=== PATIENT | female | born 1995 | race Caucasian/White ===

== ENCOUNTER 2019-02-11 13:26 | Outpatient (RCR) | payer OTHER | END 2019-02-11 15:00 | disposition home or self-care (01) | PROVIDERS: ATTEND Surgery | DX: Z02.71 Encounter for disability determination (principal) ==

== ENCOUNTER 2020-05-13 20:55 | Emergency (ER) | payer SELFPAY ==
[~2020-05-13] VITALS: Ht 162.5 cm; Wt 139.9 kg
[2020-05-13 20:57] VITALS: BP 113/72
--- OUTSIDE RECORDS SUMMARY | 2020-05-13 21:00 | XMS REPORT | Clinical Summary ---
Author Author Admin, Isadora Graham Organization [facility] Address Unknown Phone Unavailable Allergies, Adverse Reactions, Alerts Allergy Name Reaction Description Start Date Severity Status Pr ovider ANTHIHISTAMINE Reverse affect Moderate Active Amandeep Castillo DO Conditions or Problems Problem Name Problem Code Onset Date Status Entry Date Provider Comment Standard Description Annotate APHTHOUS ULCERS 528.2 Resolved Tito Medrano Oral aphthae ACUTE PHARYNGITIS 462 Resolved Tito Burkett MD Acute pharyngitis BMI 40-44.9 adult V85.41 Active Tito Burkett MD Body Mass Index 40.0-44.9, adult Allergic rhinitis 477.9 Active Tito Burkett MD Allergic rhinitis, cause unspecified APHTHOUS ULCERS ICD-528.2 Inactive Tito Boudreaux MD ACUTE PHARYNGITIS ICD-462 Inactive Tito moore MD Medication List Medication Instructions Start Date Stop Date Generic Name NDC Status Provider Patient Instruction CEFDINIR 300 MG CAPS by mouth twice a day CEFDI LANEY 38199371454 Active Amandeep Castillo DO Active FLUTICASONE PROPIONATE 50 MCG/ACT SUSP 1 to 2 sprays e ach nostril daily for allergies FLUTICASONE PROPIONATE 21743518946 Active Magan Burkett MD Active PREDNISONE 20 MG TABS 2 daily for 3 days then 1 daily for 3 days 20 25/02/05 PREDNISONE 00435566819 Active Tito Burkett MD Active TRIAMCINOLONE ACETONIDE 0.1 % CREA apply q 8 hours sparingly to itchy area's TRIAMCINOLONE ACETONIDE 21981228205 No Longer Active Tito Burkett MD Active TRIAMCINOLONE ACETONIDE 0.1 % CREA apply q 8 hours sparingly to itchy area's TRIAMCINOLONE ACETONIDE 0.1 % CREA 5242012 TRIAMCINOLONE ACETONIDE Inactive Vital Signs Date Name Value Unit Range Description blood pressure, diastolic - 8462-4 83 mm[Hg] BP kinsey blood pressure, systolic - 8480-6 134 mm[Hg] BP sys height E&M - 8302-2 65 [in_us] Bdy h eight pulse rate E&M - 8867-4 90 /min H eart rate temperature E&M 98.0 [degF] Body temp erature weight E&M - 3141-9 260.6 [lb_av] Weigh t Measured Encounters Code Encounter Date Provider Facility CPT-20079 Level 2 New Patient 16:16:35 CDT Tito moore MD [facility] CPT-56758 Level 3 Est. 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 Patient 19:59:16 CDT Amandeep hill [facility]
--- OUTSIDE RECORDS SUMMARY | 2020-05-13 21:00 | XMS REPORT | Clinical Summary ---
Author Author Admin, Isadora Graham Organization [facility] Address Unknown Phone Unavailable Allergies, Adverse Reactions, [...] Tito Burkett MD Allergic rhinitis, cause unspecified Upper respiratory infection 465.9 Active Daniel Nguyễn MD Acute upper respiratory infections of un specified site ASCUS with positive high risk HPV 795.15 Active 20 27/08/24 Maila Bright MD Vaginal high risk human papillomavirus ( HPV) DNA test positive Std screening V74.5 Active Malia Bright MD Screening examination for venereal disease APHTHOUS ULCERS ICD-528.2 Inactive Tito Boudreaux MD ACUTE PHARYNGITIS ICD-462 Inactive Tito moore MD Medication List Medication Instructions Start Date Stop Date Generic Name NDC Status Provider Patient Instruction FLUTICASONE PROPIONATE 50 MCG/ACT SUSP 1 to 2 sprays e ach nostril daily for allergies FLUTICASONE PROPIONATE 08134970529 No nger Active Malia Bright MD Active PREDNISONE 20 MG TABS 2 daily for 3 days then 1 daily for 3 days PREDNISONE 99088994132 No Longer Active Amandeep Castillo DO Act ce PREDNISONE 20 MG TAB 2 tabs daily for 3 days, 1 t ab daily for 3 days, 1/2 tab daily for 2 days PREDNISONE 45681714905 No Longer Active Daniel Nguyễn MD Active CEFDINIR 300 MG CAPS by mouth twice a day CEFDI LANEY 17876803456 No Longer Active Amandeep Castillo DO Active TRIAMCINOLONE ACETONIDE 0.1 % CREA apply q 8 hours sparingly to itchy area's TRIAMCINOLONE ACETONIDE 04247741090 No Longer Active Tito Burkett MD Active TRIAMCINOLONE ACETONIDE 0.1 % CREA apply q 8 hours sparingly to itchy area's TRIAMCINOLONE ACETONIDE 0.1 % CREA 8536003 TRIAMCINOLONE ACETONIDE Inactive PREDNISONE 20 MG TABS 2 daily for 3 days then 1 daily for 3 days PREDNISONE 20 MG TABS 453675 PREDNISONE Inactive FLUTICASONE PROPIONATE 50 MCG/ACT SUSP 1 to 2 sprays e ach nostril daily for allergies FLUTICASONE PROPIONATE 50 MCG/ACT SUSP 17 78590 FLUTICASONE PROPIONATE Inactive CEFDINIR 300 MG CAPS by mouth twice a day CEFDINIR 300 MG CAPS 248734 CEFDINIR Inactive PREDNISONE 20 MG TAB 2 tabs daily for 3 days, 1 t ab daily for 3 days, 1/2 tab daily for 2 days PREDNISONE 20 MG TAB 758207 PREDNISON E Inactive Vital Signs Date Name Value Unit Range Description blood pressure, diastolic - 8462-4 77 mm[Hg] BP kinsey blood pressure, systolic - 8480-6 121 mm[Hg] BP sys pulse rate E&M - 8867-4 64 /min H eart rate temperature E&M 99.1 [degF] Body temp erature weight E&M - 3141-9 264.4 [lb_av] Weigh t Measured blood pressure, diastolic - 8462-4 76 mm[Hg] BP kinsey blood pressure, systolic - 8480-6 132 mm[Hg] BP sys pulse rate E&M - 8867-4 61 /min H eart rate temperature E&M 98.8 [degF] Body temp erature weight E&M - 3141-9 270 [lb_av] Weigh t Measured blood pressure, diastolic - 8462-4 85 mm[Hg] BP kinsey blood pressure, systolic - 8480-6 132 mm[Hg] BP sys pulse rate E&M - 8867-4 105 /min H eart rate temperature E&M 98.7 [degF] Body temp erature weight E&M - 3141-9 270 [lb_av] Weigh t Measured blood pressure, diastolic - 8462-4 83 mm[Hg] BP kinsey blood pressure, systolic - 8480-6 134 mm[Hg] BP sys height E&M - 8302-2 65 [in_us] Bdy h eight pulse rate E&M - 8867-4 90 /min H eart rate temperature E&M 98.0 [degF] Body temp erature weight E&M - 3141-9 260.6 [lb_av] Weigh t Measured Diagnostic Results Date Name Value Unit Range Description Lab Report: HEPATITIS B S AG W/, Chlamyd ia/GC APTIMA/84570, HIV-1/2 Agn/ ... - Chemistry hepatitis B surface antigen NON-REACTIVE NON-RE ACTIVE Lab Report: HEPATITIS B S AG W/, Chlamyd ia/GC APTIMA/99360, HIV-1/2 Agn/ ... - Lab chlamydia DNA probe NOT DETECTED NOT DETECTED Lab Report: HEPATITIS B S AG W/, Chlamyd ia/GC APTIMA/25330, HIV-1/2 Agn/ ... - Microbiology Neisseria gonorrhoeae DNA probe NOT DETECTED NO T DETECTED Lab Report: HEPATITIS B S AG W/, Chlamyd ia/GC APTIMA/91695, HIV-1/2 Agn/ ... - Serology rapid plasma reagin antibody titer NON-REACTIVE NON-REACTIVE Office Procedure: Consult Colposcopy - C hemistry human chorionic gonadotropin , urine, qualitative (urine test) neg Encounters Code Encounter Date Provider Facility CPT-80351 Level 3 Est. Patient 16:51:44 CDT Amandeep hill [facility] CPT-52656 Level 3 Est. Patient 15:10:02 CDT Daniel Nguyễn MD [facility] CPT-52025 Level 2 New Patient 16:16:35 CDT Tito moore MD [facility] CPT-07513 Level 3 Est. 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 Patient 19:59:16 CDT Amandeep hill [facility] Procedures Code Procedure Name Date Entry Date Standard Desc ription CPT-25377 Wet Prep/CEM - LAB USE ONLY 11:16:10 CDT 20 27/08/24 CPT-53475 [place] of cervix w bx ECC 10:13:06 CDT CPT-OV Office Visit 10:13:06 CDT
--- OUTSIDE RECORDS SUMMARY | 2020-05-13 21:00 | XMS REPORT | Clinical Summary ---
Author Author Admin, Isadora Graham Organization [facility] Address Unknown Phone Unavailable Allergies, Adverse [...] high risk HPV 795.15 Active 20 27/08/24 Malia Bright MD Vaginal high risk human papillomavirus [...] ach nostril daily for allergies FLUTICASONE PROPIONATE 75270853818 No nger Active Malia Bright MD Active PREDNISONE 20 MG TABS 2 daily for 3 days then 1 daily for 3 days PREDNISONE 44621145582 No Longer Active Amandeep Castillo DO Act ce PREDNISONE 20 MG TAB 2 tabs daily for 3 days, 1 t ab daily for 3 days, 1/2 tab daily for 2 days PREDNISONE 42516499564 No Longer Active Daniel Nguyễn MD Active CEFDINIR 300 MG CAPS by mouth twice a day CEFDI LANEY 02181455447 No Longer Active Amandeep Castillo DO Active TRIAMCINOLONE ACETONIDE 0.1 % CREA apply q 8 hours sparingly to itchy area's TRIAMCINOLONE ACETONIDE 19780090896 No Longer Active Tito Burkett MD Active TRIAMCINOLONE ACETONIDE 0.1 % CREA apply q 8 hours sparingly to itchy area's TRIAMCINOLONE ACETONIDE 0.1 % CREA 7575856 TRIAMCINOLONE ACETONIDE Inactive PREDNISONE 20 MG TABS 2 daily for 3 days then 1 daily for 3 days PREDNISONE 20 MG TABS 468015 PREDNISONE Inactive FLUTICASONE PROPIONATE 50 MCG/ACT SUSP 1 to 2 sprays e ach nostril daily for allergies FLUTICASONE PROPIONATE 50 MCG/ACT SUSP 17 38849 FLUTICASONE PROPIONATE Inactive CEFDINIR 300 MG CAPS by mouth twice a day CEFDINIR 300 MG CAPS 689152 CEFDINIR Inactive PREDNISONE 20 MG TAB 2 tabs daily for 3 days, 1 t ab daily for 3 days, 1/2 tab daily for 2 days PREDNISONE 20 MG TAB 048508 PREDNISON E Inactive Vital Signs Date Name Value Unit Range Description blood pressure, diastolic - 8462-4 76 mm[Hg] [...] HEPATITIS B S AG W/, Chlamyd ia/GC APTIMA/07408, HIV-1/2 Agn/ ... - Chemistry hepatitis B surface antigen NON-REACTIVE NON-RE ACTIVE Lab Report: HEPATITIS B S AG W/, Chlamyd ia/GC APTIMA/24057, HIV-1/2 Agn/ ... - Lab chlamydia DNA probe NOT DETECTED NOT DETECTED Lab Report: HEPATITIS B S AG W/, Chlamyd ia/GC APTIMA/54210, HIV-1/2 Agn/ ... - Microbiology Neisseria gonorrhoeae DNA probe NOT DETECTED NO T DETECTED Lab Report: HEPATITIS B S AG W/, Chlamyd ia/GC APTIMA/73148, HIV-1/2 Agn/ ... - Serology rapid plasma reagin antibody titer NON-REACTIVE NON-REACTIVE Encounters Code Encounter Date Provider Facility CPT-11795 Level 3 Est. Patient 16:51:44 CDT Amandeep hill [facility] CPT-25883 Level 3 Est. Patient 15:10:02 CDT Daniel Nguyễn MD [facility] CPT-08819 Level 2 New Patient 16:16:35 CDT Tito moore MD [facility] CPT-03997 Level 3 Est. 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 Patient 19:59:16 CDT Amandeep hill [facility] Procedures Code Procedure Name Date Entry Date Standard Desc ription CPT-66304 Wet Prep/CEM - LAB USE ONLY 11:16:10 CDT 20 27/08/24 CPT-51009 [place] of cervix w bx ECC 10:13:06 CDT CPT-OV Office Visit 10:13:06 CDT
--- OUTSIDE RECORDS SUMMARY | 2020-05-13 21:00 | XMS REPORT | Clinical Summary ---
Author Author Admin, Isadora Graham Organization [facility] Address Unknown Phone Unavailable Allergies, Adverse [...] Bright MD Screening examination for venereal disease Sinusitis 473.9 Active Tito Burkett MD Unspecified sinusitis (chronic) Pharyngitis 462 Active Tito Burkett MD Acute pharyngitis Plantar fasciitis, left 728.71 Active Ilir Burkett MD Plantar fascial fibromatosis Irregular menses 626.4 Active Malia Bright MD Irregular menstrual cycle Sleep disorder 780.50 Active Malia Bright MD Unspecified sleep disturbance Obesity 278.00 Active Malia Bright MD O besity, unspecified APHTHOUS ULCERS ICD-528.2 Inactive Tito Boudreaux MD ACUTE PHARYNGITIS ICD-462 Inactive Tito moore MD Medication List Medication Instructions Start Date Stop Date Generic Name NDC Status Provider Patient Instruction IBUPROFEN 600 MG TABS 1 three times a day as needed for pain 201 05/18/24 IBUPROFEN 13322017610 No Longer Active Malia Bright MD A ctive AMOXICILLIN 500 MG TABS 2 tabs twice a day for 10 days AMOXICILLIN 76229708834 No Longer Active Tito Burkett MD Activ e PREDNISONE 20 MG TABS 2 daily for 3 days then 1 daily for 3 days PREDNISONE 42540557234 No Longer Active Tito Burkett MD Active FLUTICASONE PROPIONATE 50 MCG/ACT SUSP 1 to 2 sprays e ach nostril daily for allergies FLUTICASONE PROPIONATE 47705852758 Active R kennedy Burkett MD Active FLUTICASONE PROPIONATE 50 MCG/ACT SUSP 1 to 2 sprays e ach nostril daily for allergies FLUTICASONE PROPIONATE 74844175232 No Lo nger Active Malia Bright MD Active PREDNISONE 20 MG TABS 2 daily for 3 days then 1 daily for 3 days PREDNISONE 97738359251 No Longer Active Amandeep Castillo DO Act ce PREDNISONE 20 MG TAB 2 tabs daily for 3 days, 1 t ab daily for 3 days, 1/2 tab daily for 2 days PREDNISONE 45028528908 No Longer Active Daniel Nguyễn MD Active CEFDINIR 300 MG CAPS by mouth twice a day CEFDI LANEY 85561282277 No Longer Active Amandeep Castillo DO Active TRIAMCINOLONE ACETONIDE 0.1 % CREA apply q 8 hours sparingly to itchy area's TRIAMCINOLONE ACETONIDE 18899784672 No Longer Active Tito Burkett MD Active TRIAMCINOLONE ACETONIDE 0.1 % CREA apply q 8 hours sparingly to itchy area's TRIAMCINOLONE ACETONIDE 0.1 % CREA 2009525 TRIAMCINOLONE ACETONIDE Inactive PREDNISONE 20 MG TABS 2 daily for 3 days then 1 daily for 3 days PREDNISONE 20 MG TABS 286203 PREDNISONE Inactive FLUTICASONE PROPIONATE 50 MCG/ACT SUSP 1 to 2 sprays e ach nostril daily for allergies FLUTICASONE PROPIONATE 50 MCG/ACT SUSP 17 16495 FLUTICASONE PROPIONATE Inactive PREDNISONE 20 MG TABS 2 daily for 3 days then 1 daily for 3 days PREDNISONE 20 MG TABS 611340 PREDNISONE Inactive AMOXICILLIN 500 MG TABS 2 tabs twice a day for 10 days AMOXICILLIN 500 MG TABS 130798 AMOXICILLIN Inactive IBUPROFEN 600 MG TABS 1 three times a day as needed for pain 201 05/18/24 IBUPROFEN 600 MG TABS 665455 IBUPROFEN Inactive CEFDINIR 300 MG CAPS by mouth twice a day CEFDINIR 300 MG CAPS 402577 CEFDINIR Inactive PREDNISONE 20 MG TAB 2 tabs daily for 3 days, 1 t ab daily for 3 days, 1/2 tab daily for 2 days PREDNISONE 20 MG TAB 998170 PREDNISON E Inactive Vital Signs Date Name Value Unit Range Description blood pressure, diastolic 79 mm[Hg] BP kinsey blood pressure, systolic 126 mm[Hg] BP sys height E&M 65 [in_us] Bdy height pulse rate E&M 63 /min Heart rate temperature E&M 97.4 [degF] Body temp erature weight E&M 273 [lb_av] Weight Measure d blood pressure, diastolic 66 mm[Hg] BP kinsey blood pressure, systolic 136 mm[Hg] BP sys height E&M 65 [in_us] Bdy height pulse rate E&M 93 /min Heart rate temperature E&M 98.3 [degF] Body temp erature weight E&M 269.5 [lb_av] Weight Measure d blood pressure, diastolic 79 mm[Hg] BP kinsey blood pressure, systolic 127 mm[Hg] BP sys pulse rate E&M 88 /min Heart rate temperature E&M 98.9 [degF] Body temp erature weight E&M 259.5 [lb_av] Weight Measure d blood pressure, diastolic 77 mm[Hg] BP kinsey blood pressure, systolic 121 mm[Hg] BP sys pulse rate E&M 64 /min Heart rate temperature E&M 99.1 [degF] Body temp erature weight E&M 264.4 [lb_av] Weight Measure d Diagnostic Results Date Name Value Unit Range Description Lab Report: CBC, Comp. Metabolic Panel, Thyroid Stimulating Hormone (L) - Chemistry sodium, serum 138 mmol/L 205-894 8220/09/06 carbon dioxide, venous blood 21.9 mmol/L 21.0-32 .0 potassium, serum 4.2 mmol/L 3.5-5.2 chloride, serum 103 mmol/L 98-107 blood glucose 93 mg/dL 65-110 urea nitrogen, blood 13 mg/dL 7-18 creatinine, serum 0.73 mg/dL 0.60-1.30 alanine aminotransferase (SGPT), serum 17 U/L 12-78 aspartate aminotransferase (SGOT), serum 11 U/L 15-37 calcium, serum 8.6 mg/dL 8.5-10.1 bilirubin, serum, total 0.30 mg/dL 0.00-1.00 TSH 1.70 m[iU]/mL 0.36-3.74 Lab Report: CBC, Comp. Metabolic Panel, Thyroid Stimulating Hormone (L) - Hematology leukocyte count, blood 6.1 10^3/MM^3 10*3/mm3 4.6-10.2 erythrocyte (RBC) count 4.77 10^6/MM^3 10*6/mm3 3.80-5.8 0 hemoglobin, blood 14.2 g/dL 12.0-16.0 hematocrit, blood 42.9 % 37.0-47.0 mean corpuscular volume, RBC 90 fL 80-97 mean corpuscular hemoglobin, RBC 29.8 pg 27. 0-31.2 mean corpuscular hemoglobin concentration, RBC 33.2 G/DL % 31.8-35.4 red blood cell distribution width 13.9 % 13 .0-18.0 platelet count 348 10^3/MM^3 10*3/mm3 142-424 Lab Report: Chlamydia/GC APTIMA/87440 - Lab chlamydia DNA probe NOT DETECTED NOT DETECTED Lab Report: Chlamydia/GC APTIMA/26859 - Microbiology Neisseria gonorrhoeae DNA probe NOT DETECTED NO T DETECTED Lab Report: HEPATITIS B S AG W/, Chlamyd ia/GC APTIMA/24985, HIV-1/2 Agn/ ... - Chemistry hepatitis B surface antigen NON-REACTIVE NON-RE ACTIVE rapid plasma reagin antibody titer NON-REACTIVE NON-REACTIVE Lab Report: HEPATITIS B S AG W/, Chlamyd ia/GC APTIMA/63760, HIV-1/2 Agn/ ... - Lab chlamydia DNA probe NOT DETECTED NOT DETECTED Lab Report: HEPATITIS B S AG W/, Chlamyd ia/GC APTIMA/32234, HIV-1/2 Agn/ ... - Microbiology Neisseria gonorrhoeae DNA probe NOT DETECTED NO T DETECTED Office Procedure: Consult Colposcopy - C hemistry human chorionic gonadotropin , urine, qualitative (urine test) neg Office Visit: Irregular bleeding - Chemi stry human chorionic gonadotropin , urine, qualitative (urine test) Negative Encounters Code Encounter Date Provider Facility CPT-72814 Level 4 Est. Patient 09:59:10 CDT Malia mckeon MD [facility] CPT-31998 Level 3 Est. Patient 15:42:35 CDT Tito Burkett MD [facility] CPT-68147 Level 3 Est. 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 Patient 16:51:44 CDT Amandeep hill [facility] CPT-91223 Level 3 Est. Patient 15:10:02 CDT Daniel Nguyễn MD [facility] CPT-57010 Level 2 New Patient 16:16:35 CDT Tito moore MD [facility] CPT-14484 Level 3 Est. 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 Patient 19:59:16 CDT Amandeep hill [facility] Procedures Code Procedure Name Date Entry Date Standard Desc ription CPT[facility]15313 [facility] - CARLY ONLY 10:08:25 CDT 07/10 CPT-33727 Wet Prep/CEM - LAB USE ONLY 11:16:10 CDT 20 27/08/24 CPT-73073 [place] of cervix w bx ECC 10:13:06 CDT CPT-OV Office Visit 10:13:06 CDT
--- OUTSIDE RECORDS SUMMARY | 2020-05-13 21:00 | XMS REPORT | Clinical Summary ---
Author Author Admin, Isadora Graham Organization [facility] Address Unknown Phone Unavailable Allergies, Adverse [...] as needed for pain 201 05/18/24 IBUPROFEN 35547506513 No Longer Active Malia Bright MD A ctive AMOXICILLIN 500 MG TABS 2 tabs twice a day for 10 days AMOXICILLIN 16068383544 No Longer Active Tito Burkett MD Activ e PREDNISONE 20 MG TABS 2 daily for 3 days then 1 daily for 3 days PREDNISONE 16594516172 No Longer Active Tito Burkett MD Active FLUTICASONE PROPIONATE 50 MCG/ACT SUSP 1 to 2 sprays e ach nostril daily for allergies FLUTICASONE PROPIONATE 61358851231 Active R kennedy Burkett MD Active FLUTICASONE PROPIONATE 50 MCG/ACT SUSP 1 to 2 sprays e ach nostril daily for allergies FLUTICASONE PROPIONATE 99767471637 No Lo nger Active Malia Bright MD Active PREDNISONE 20 MG TABS 2 daily for 3 days then 1 daily for 3 days PREDNISONE 38057202015 No Longer Active Amandeep Castillo DO Act ce PREDNISONE 20 MG TAB 2 tabs daily for 3 days, 1 t ab daily for 3 days, 1/2 tab daily for 2 days PREDNISONE 91772703512 No Longer Active Daniel Nguyễn MD Active CEFDINIR 300 MG CAPS by mouth twice a day CEFDI LANEY 70167649354 No Longer Active Amandeep Castillo DO Active TRIAMCINOLONE ACETONIDE 0.1 % CREA apply q 8 hours sparingly to itchy area's TRIAMCINOLONE ACETONIDE 43336391112 No Longer Active Tito Burkett MD Active TRIAMCINOLONE ACETONIDE 0.1 % CREA apply q 8 hours sparingly to itchy area's TRIAMCINOLONE ACETONIDE 0.1 % CREA 8943117 TRIAMCINOLONE ACETONIDE Inactive PREDNISONE 20 MG TABS 2 daily for 3 days then 1 daily for 3 days PREDNISONE 20 MG TABS 764033 PREDNISONE Inactive FLUTICASONE PROPIONATE 50 MCG/ACT SUSP 1 to 2 sprays e ach nostril daily for allergies FLUTICASONE PROPIONATE 50 MCG/ACT SUSP 17 02167 FLUTICASONE PROPIONATE Inactive PREDNISONE 20 MG TABS 2 daily for 3 days then 1 daily for 3 days PREDNISONE 20 MG TABS 848433 PREDNISONE Inactive AMOXICILLIN 500 MG TABS 2 tabs twice a day for 10 days AMOXICILLIN 500 MG TABS 840379 AMOXICILLIN Inactive IBUPROFEN 600 MG TABS 1 three times a day as needed for pain 201 05/18/24 IBUPROFEN 600 MG TABS 753168 IBUPROFEN Inactive CEFDINIR 300 MG CAPS by mouth twice a day CEFDINIR 300 MG CAPS 422877 CEFDINIR Inactive PREDNISONE 20 MG TAB 2 tabs daily for 3 days, 1 t ab daily for 3 days, 1/2 tab daily for 2 days PREDNISONE 20 MG TAB 414460 PREDNISON E Inactive Vital Signs Date Name [...] Name Value Unit Range Description Lab Report: Chlamydia/GC APTIMA/22898 - Lab chlamydia DNA probe NOT DETECTED NOT DETECTED Lab Report: Chlamydia/GC APTIMA/27149 - Microbiology Neisseria gonorrhoeae DNA probe NOT DETECTED NO T DETECTED Lab Report: HEPATITIS B S AG W/, Chlamyd ia/GC APTIMA/98402, HIV-1/2 Agn/ ... - Chemistry hepatitis B surface antigen NON-REACTIVE NON-RE ACTIVE rapid plasma reagin antibody titer NON-REACTIVE NON-REACTIVE Lab Report: HEPATITIS B S AG W/, Chlamyd ia/GC APTIMA/25831, HIV-1/2 Agn/ ... - Lab chlamydia DNA probe NOT DETECTED NOT DETECTED Lab Report: HEPATITIS B S AG W/, Chlamyd ia/GC APTIMA/09371, HIV-1/2 Agn/ ... - Microbiology Neisseria gonorrhoeae DNA probe NOT DETECTED NO T DETECTED Office Procedure: Consult Colposcopy - C hemistry human chorionic gonadotropin , urine, qualitative (urine test) neg Office Visit: Irregular bleeding - Chemi stry human chorionic gonadotropin , urine, qualitative (urine test) Negative Encounters Code Encounter Date Provider Facility CPT-80311 Level 4 Est. Patient 09:59:10 CDT Malia mckeon MD [facility] CPT-22222 Level 3 Est. Patient 15:42:35 CDT Tito Burkett MD [facility] CPT-23721 Level 3 Est. 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 Patient 16:51:44 CDT Amandeep hill [facility] CPT-54110 Level 3 Est. Patient 15:10:02 CDT Daniel Nguyễn MD [facility] CPT-73917 Level 2 New Patient 16:16:35 CDT Tito moore MD [facility] CPT-51129 Level 3 Est. 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 Patient 19:59:16 CDT Amandeep hill [facility] Procedures Code Procedure Name Date Entry Date Standard Desc ription CPT-99020 [facility] Urine - CARLY ONLY 10:08:25 CDT 07/10 CPT-39169 Wet Prep/CEM - LAB USE ONLY 11:16:10 CDT 20 27/08/24 CPT-34705 [place] of cervix w bx ECC 10:13:06 CDT CPT-OV Office Visit 10:13:06 CDT
--- OUTSIDE RECORDS SUMMARY | 2020-05-13 21:00 | XMS REPORT | Clinical Summary ---
Author Author Admin, Isadora Graham Organization [facility] Address Unknown Phone Unavailable Allergies, Adverse [...] Index 40.0-44.9, adult Allergic rhinitis 477.9 Active Tiot Burkett MD Allergic rhinitis, cause unspecified Upper [...] Unspecified sinusitis (chronic) Pharyngitis 462 Active Tito Bukrett MD Acute pharyngitis Plantar fasciitis, left 728.71 [...] Status Provider Patient Instruction IBUPROFEN 600 MG ORAL TABLET 1 three times a day as needed for p ain IBUPROFEN 09351069940 No Longer Active Malia Bright MD A ctive AMOXICILLIN 500 MG ORAL TABLET 2 tabs twice a day for 10 days 27/09/25 AMOXICILLIN 40015028962 No Longer Active Tito Burkett MD Active PREDNISONE 20 MG ORAL TABLET 2 daily for 3 days then 1 daily for 3 days PREDNISONE 08058076850 No Longer Active Tito yeung MD Active FLUTICASONE PROPIONATE 50 MCG/ACT NASAL SUSPENSION 1 t o 2 sprays each nostril daily for allergies FLUTICASONE PROPIONATE 64685079140 Act ce Tito Burkett MD Active FLUTICASONE PROPIONATE 50 MCG/ACT NASAL SUSPENSION 1 t o 2 sprays each nostril daily for allergies FLUTICASONE PROPIONATE 24950725467 No Longer Active Malia Bright MD Active PREDNISONE 20 MG ORAL TABLET 2 daily for 3 days then 1 daily for 3 days PREDNISONE 61232559228 No Longer Active Amandeep Castillo DO Active PREDNISONE 20 MG ORAL TABLET 2 tabs daily for 3 days, 1 tab daily for 3 days, 1/2 tab daily for 2 days PREDNISONE 74386539108 No Longer Active Daniel Nguyễn MD Active CEFDINIR 300 MG ORAL CAPSULE by mouth twice a day 2015 CEFDINIR 46499075905 No Longer Active Amandeep Castillo DO Active TRIAMCINOLONE ACETONIDE 0.1 % EXTERNAL CREAM apply q 8 hours sparingly to itchy area's TRIAMCINOLONE ACETONIDE 21000061122 No L onger Active Tito Burkett MD Active TRIAMCINOLONE ACETONIDE 0.1 % EXTERNAL CREAM apply q 8 hours sparingly to itchy area's TRIAMCINOLONE ACETONIDE 0.1 % EX TERNAL CREAM 1925199 TRIAMCINOLONE ACETONIDE Inactive PREDNISONE 20 MG ORAL TABLET 2 daily for 3 days then 1 daily for 3 days PREDNISONE 20 MG ORAL TABLET 436566 PREDNISONE Inactive FLUTICASONE PROPIONATE 50 MCG/ACT NASAL SUSPENSION 1 t o 2 sprays each nostril daily for allergies FLUTICASONE PROPIONA TE 50 MCG/ACT NASAL SUSPENSION 5348516 FLUTICASONE PROPIONATE Inactive PREDNISONE 20 MG ORAL TABLET 2 daily for 3 days then 1 daily for 3 days PREDNISONE 20 MG ORAL TABLET 073723 PREDNISONE Inactive AMOXICILLIN 500 MG ORAL TABLET 2 tabs twice a day for 10 days 20 27/09/25 AMOXICILLIN 500 MG ORAL TABLET 531755 AMOXICILLIN I nactive IBUPROFEN 600 MG ORAL TABLET 1 three times a day as needed for p ain IBUPROFEN 600 MG ORAL TABLET 719339 IBUPROFEN Didi ctive CEFDINIR 300 MG ORAL CAPSULE by mouth twice a day 2015 CEFDINIR 300 MG ORAL CAPSULE 858779 CEFDINIR Inactive PREDNISONE 20 MG ORAL TABLET 2 tabs daily for 3 days, 1 tab daily for 3 days, 1/2 tab daily for 2 days PREDNISONE 20 MG ORAL T ABLET 058339 PREDNISONE Inactive Encounters Code Encounter Date Provider Facility CPT-43348 Level 4 Est. Patient 09:59:10 CDT Malia mckeon MD [facility] CPT-84137 Level 3 Est. Patient 15:42:35 CDT Tito Burkett MD [facility] CPT-38284 Level 3 Est. 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 Patient 16:51:44 CDT Amandeep hill DO [facility] CPT-84834 Level 3 Est. Patient 15:10:02 CDT Daniel Nguyễn MD [facility] CPT-85736 Level 2 New Patient 16:16:35 CDT Tito moore MD [facility] CPT-79333 Level 3 Est. Patient 18:15:55 CRULLER MAKER Amandeep hill [facility] CPT-87658 Level 3 Est. Patient 19:59:16 CDT Amandeep hill [facility] Procedures Code Procedure Name Date Entry Date Standard Desc ription CPT-72158 UHCG Urine - CARLY ONLY 10:08:25 CDT 07/10 CPT-06581 Wet Prep/CEM - LAB USE ONLY 11:16:10 CDT 20 27/08/24 CPT-89680 [place] of cervix w bx ECC 10:13:06 CDT CPT-OV Office Visit 10:13:06 CDT
--- OUTSIDE RECORDS SUMMARY | 2020-05-13 21:01 | XMS REPORT | Clinical Summary ---
Author Author Admin, Isadora Graham Organization [facility] Address Unknown Phone Unavailable Allergies, Adverse [...] for venereal disease APHTHOUS ULCERS ICD-528.2 Inactive Ttio Boudreaux MD ACUTE PHARYNGITIS ICD-462 Inactive Tito moore MD Medication List Medication Instructions Start Date Stop Date Generic Name NDC Status Provider Patient Instruction FLUTICASONE PROPIONATE 50 MCG/ACT SUSP 1 to 2 sprays e ach nostril daily for allergies FLUTICASONE PROPIONATE [id number] No nger Active Malia Bright MD Active PREDNISONE 20 MG TABS 2 daily for 3 days then 1 daily for 3 days PREDNISONE 16628012852 No Longer Active Amandeep Castillo DO Act ce PREDNISONE 20 MG TAB 2 tabs daily for 3 days, 1 t ab daily for 3 days, 1/2 tab daily for 2 days PREDNISONE 04738735819 No Longer Active Daniel Nguyễn MD Active CEFDINIR 300 MG CAPS by mouth twice a day CEFDI LANEY 59886146837 No Longer Active Amandeep Castillo DO Active TRIAMCINOLONE ACETONIDE 0.1 % CREA apply q 8 hours sparingly to itchy area's TRIAMCINOLONE ACETONIDE 07676260093 No Longer Active Tito Burkett MD Active TRIAMCINOLONE ACETONIDE 0.1 % CREA apply q 8 hours sparingly to itchy area's TRIAMCINOLONE ACETONIDE 0.1 % CREA 3951548 TRIAMCINOLONE ACETONIDE Inactive PREDNISONE 20 MG TABS 2 daily for 3 days then 1 daily for 3 days PREDNISONE 20 MG TABS 362656 PREDNISONE Inactive FLUTICASONE PROPIONATE 50 MCG/ACT SUSP 1 to 2 sprays e ach nostril daily for allergies FLUTICASONE PROPIONATE 50 MCG/ACT SUSP 17 33649 FLUTICASONE PROPIONATE Inactive CEFDINIR 300 MG CAPS by mouth twice a day CEFDINIR 300 MG CAPS 228519 CEFDINIR Inactive PREDNISONE 20 MG TAB 2 tabs daily for 3 days, 1 t ab daily for 3 days, 1/2 tab daily for 2 days PREDNISONE 20 MG TAB 515541 PREDNISON E Inactive Vital Signs Date Name [...] HEPATITIS B S AG W/, Chlamyd ia/GC APTIMA/90015, HIV-1/2 Agn/ ... - Chemistry hepatitis B surface antigen NON-REACTIVE NON-RE ACTIVE Lab Report: HEPATITIS B S AG W/, Chlamyd ia/GC APTIMA/15485, HIV-1/2 Agn/ ... - Lab chlamydia DNA probe NOT DETECTED NOT DETECTED Lab Report: HEPATITIS B S AG W/, Chlamyd ia/GC APTIMA/92461, HIV-1/2 Agn/ ... - Microbiology Neisseria gonorrhoeae DNA probe NOT DETECTED NO T DETECTED Lab Report: HEPATITIS B S AG W/, Chlamyd ia/GC APTIMA/44721, HIV-1/2 Agn/ ... - Serology rapid plasma reagin antibody titer NON-REACTIVE NON-REACTIVE Encounters Code Encounter Date Provider Facility CPT-37564 Level 3 Est. Patient 16:51:44 CDT Amandeep hill [facility] CPT-84903 Level 3 Est. Patient 15:10:02 CDT Daniel Nguyễn MD [facility] CPT-59575 Level 2 New Patient 16:16:35 CDT Tito moore MD [facility] CPT-22379 Level 3 Est. Patient 18:15:55 MEDICAL OFFICE ADMINISTRATOR Amandeep [facility] CPT-13722 Level 3 Est. Patient 19:59:16 CDT Amandeep hill [facility] Procedures Code Procedure Name Date Entry Date Standard Desc ription CPT-51992 Wet Prep/CEM - LAB USE ONLY 11:16:10 CDT 20 27/08/24 CPT-30799 [place] of cervix w bx ECC 10:13:06 CDT CPT-OV Office Visit 10:13:06 CDT
--- OUTSIDE RECORDS SUMMARY | 2020-05-13 21:01 | XMS REPORT | Clinical Summary ---
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 [...] ach nostril daily for allergies FLUTICASONE PROPIONATE 93850267678 No nger Active Malia Bright MD Active PREDNISONE 20 MG TABS 2 daily for 3 days then 1 daily for 3 days PREDNISONE 06826171466 No Longer Active Amandeep Castillo DO Act ce PREDNISONE 20 MG TAB 2 tabs daily for 3 days, 1 t ab daily for 3 days, 1/2 tab daily for 2 days PREDNISONE 88832725493 No Longer Active Daniel Nguyễn MD Active CEFDINIR 300 MG CAPS by mouth twice a day CEFDI LANEY 84789045938 No Longer Active Amandeep Castillo DO Active TRIAMCINOLONE ACETONIDE 0.1 % CREA apply q 8 hours sparingly to itchy area's TRIAMCINOLONE ACETONIDE 50568759279 No Longer Active Tito Burkett MD Active TRIAMCINOLONE ACETONIDE 0.1 % CREA apply q 8 hours sparingly to itchy area's TRIAMCINOLONE ACETONIDE 0.1 % CREA 0909930 TRIAMCINOLONE ACETONIDE Inactive PREDNISONE 20 MG TABS 2 daily for 3 days then 1 daily for 3 days PREDNISONE 20 MG TABS 516161 PREDNISONE Inactive FLUTICASONE PROPIONATE 50 MCG/ACT SUSP 1 to 2 sprays e ach nostril daily for allergies FLUTICASONE PROPIONATE 50 MCG/ACT SUSP 17 90602 FLUTICASONE PROPIONATE Inactive CEFDINIR 300 MG CAPS by mouth twice a day CEFDINIR 300 MG CAPS 447918 CEFDINIR Inactive PREDNISONE 20 MG TAB 2 tabs daily for 3 days, 1 t ab daily for 3 days, 1/2 tab daily for 2 days PREDNISONE 20 MG TAB 949748 PREDNISON E Inactive Vital Signs Date Name [...] Measured Encounters Code Encounter Date Provider Facility CPT-86509 Level 3 Est. Patient 16:51:44 CDT Amandeep hill [facility] CPT-18853 Level 3 Est. Patient 15:10:02 CDT Daniel Nguyễn MD [facility] CPT-23379 Level 2 New Patient 16:16:35 CDT Tito moore MD [facility] CPT-71057 Level 3 Est. 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 Patient 19:59:16 CDT Amandeep hill [facility] Procedures Code Procedure Name Date Entry Date Standard Desc ription CPT-97450 Wet Prep/CEM - LAB USE ONLY 11:16:10 CDT 20 27/08/24 CPT-34467 [place] of cervix w bx ECC 10:13:06 CDT CPT-OV Office Visit 10:13:06 CDT
--- OUTSIDE RECORDS SUMMARY | 2020-05-13 21:01 | XMS REPORT | Clinical Summary ---
Author Author Admin, Isadora Graham Organization [facility] Address Unknown Phone Unavailable Allergies, Adverse [...] ach nostril daily for allergies FLUTICASONE PROPIONATE 05572151775 No nger Active Malia Bright MD Active PREDNISONE 20 MG TABS 2 daily for 3 days then 1 daily for 3 days PREDNISONE 45134053889 No Longer Active Amandeep Castillo DO Act ce PREDNISONE 20 MG TAB 2 tabs daily for 3 days, 1 t ab daily for 3 days, 1/2 tab daily for 2 days PREDNISONE 05558989498 No Longer Active Daniel Nguyễn MD Active CEFDINIR 300 MG CAPS by mouth twice a day CEFDI LANEY 52861228072 No Longer Active Amandeep Castillo DO Active TRIAMCINOLONE ACETONIDE 0.1 % CREA apply q 8 hours sparingly to itchy area's TRIAMCINOLONE ACETONIDE 85296245300 No Longer Active Tito Burkett MD Active TRIAMCINOLONE ACETONIDE 0.1 % CREA apply q 8 hours sparingly to itchy area's TRIAMCINOLONE ACETONIDE 0.1 % CREA 7544178 TRIAMCINOLONE ACETONIDE Inactive PREDNISONE 20 MG TABS 2 daily for 3 days then 1 daily for 3 days PREDNISONE 20 MG TABS 966108 PREDNISONE Inactive FLUTICASONE PROPIONATE 50 MCG/ACT SUSP 1 to 2 sprays e ach nostril daily for allergies FLUTICASONE PROPIONATE 50 MCG/ACT SUSP 17 60223 FLUTICASONE PROPIONATE Inactive CEFDINIR 300 MG CAPS by mouth twice a day CEFDINIR 300 MG CAPS 703078 CEFDINIR Inactive PREDNISONE 20 MG TAB 2 tabs daily for 3 days, 1 t ab daily for 3 days, 1/2 tab daily for 2 days PREDNISONE 20 MG TAB 154186 PREDNISON E Inactive Vital Signs Date Name [...] HEPATITIS B S AG W/, Chlamyd ia/GC APTIMA/91016, HIV-1/2 Agn/ ... - Chemistry hepatitis B surface antigen NON-REACTIVE NON-RE ACTIVE Lab Report: HEPATITIS B S AG W/, Chlamyd ia/GC APTIMA/61985, HIV-1/2 Agn/ ... - Lab chlamydia DNA probe NOT DETECTED NOT DETECTED Lab Report: HEPATITIS B S AG W/, Chlamyd ia/GC APTIMA/88326, HIV-1/2 Agn/ ... - Microbiology Neisseria gonorrhoeae DNA probe NOT DETECTED NO T DETECTED Lab Report: HEPATITIS B S AG W/, Chlamyd ia/GC APTIMA/87450, HIV-1/2 Agn/ ... - Serology rapid plasma reagin antibody titer NON-REACTIVE NON-REACTIVE Encounters Code Encounter Date Provider Facility CPT-55267 Level 3 Est. Patient 16:51:44 CDT Amandeep hill [facility] CPT-87866 Level 3 Est. Patient 15:10:02 CDT Daniel Nguyễn MD [facility] CPT-01812 Level 2 New Patient 16:16:35 CDT Tito moore MD [facility] CPT-40868 Level 3 Est. 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 Patient 19:59:16 CDT [facility] Procedures Code Procedure Name Date Entry Date Standard Desc ription CPT-51941 Wet Prep/CEM - LAB USE ONLY 11:16:10 CDT 20 27/08/24 CPT-37448 [place] of cervix w bx ECC 10:13:06 CDT CPT-OV Office Visit 10:13:06 CDT
--- OUTSIDE RECORDS SUMMARY | 2020-05-13 21:01 | XMS REPORT | Clinical Summary ---
Author Author Admin, Isadora Graham Organization [facility] Address Unknown Phone Unavailable Allergies, Adverse Reactions, [...] upper respiratory infections of un specified site APHTHOUS ULCERS ICD-528.2 Inactive Tito Boudreaux MD ACUTE PHARYNGITIS ICD-462 Inactive Tito moore MD Medication List Medication Instructions Start Date Stop Date Generic Name NDC Status Provider Patient Instruction PREDNISONE 20 MG TABS 2 daily for 3 days then 1 daily for 3 days PREDNISONE 27196651127 No Longer Active Amandeep Castillo DO Act ce PREDNISONE 20 MG TAB 2 tabs daily for 3 days, 1 t ab daily for 3 days, 1/2 tab daily for 2 days PREDNISONE 09271774551 No Longer Active Daniel Nguyễn MD Active CEFDINIR 300 MG CAPS by mouth twice a day CEFDI LANEY 57342515791 No Longer Active Amandeep Castillo DO Active FLUTICASONE PROPIONATE 50 MCG/ACT SUSP 1 to 2 sprays e ach nostril daily for allergies FLUTICASONE PROPIONATE 80206427447 Active R kennedy Burkett MD Active TRIAMCINOLONE ACETONIDE 0.1 % CREA apply q 8 hours sparingly to itchy area's TRIAMCINOLONE ACETONIDE 77243253249 No Longer Active Tito Burkett MD Active TRIAMCINOLONE ACETONIDE 0.1 % CREA apply q 8 hours sparingly to itchy area's TRIAMCINOLONE ACETONIDE 0.1 % CREA 2219052 TRIAMCINOLONE ACETONIDE Inactive PREDNISONE 20 MG TABS 2 daily for 3 days then 1 daily for 3 days PREDNISONE 20 MG TABS 956923 PREDNISONE Inactive CEFDINIR 300 MG CAPS by mouth twice a day CEFDINIR 300 MG CAPS 523720 CEFDINIR Inactive PREDNISONE 20 MG TAB 2 tabs daily for 3 days, 1 t ab daily for 3 days, 1/2 tab daily for 2 days PREDNISONE 20 MG TAB 787985 PREDNISON E Inactive Vital Signs Date Name [...] Measured Encounters Code Encounter Date Provider Facility CPT-13508 Level 3 Est. Patient 16:51:[address] [facility] CPT-81452 Level 3 Est. Patient 15:10:02 CDT Daniel Nguyễn MD [facility] CPT-15703 Level 2 New Patient 16:16:35 CDT Tito moore MD [facility] CPT-06798 Level 3 Est. 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 Patient 19:59:16 CDT Amandeep hill [facility]
--- OUTSIDE RECORDS SUMMARY | 2020-05-13 21:01 | XMS REPORT | Clinical Summary ---
Author Author Admin, Isadora Graham Organization [facility] Address Unknown Phone Unavailable Allergies, Adverse [...] Status Provider Patient Instruction PREDNISONE 20 MG TAB 2 tabs daily for 3 days, 1 t ab daily for 3 days, 1/2 tab daily for 2 days PREDNISONE 24555077217 Active Daniel Nguyễn MD Active CEFDINIR 300 MG CAPS by mouth twice a day CEFDI LANEY 08757157514 Active Amandeep Castillo DO Active FLUTICASONE PROPIONATE 50 MCG/ACT SUSP 1 to 2 sprays e ach nostril daily for allergies FLUTICASONE PROPIONATE 00376067183 Active R kennedy Burkett MD Active PREDNISONE 20 MG TABS 2 daily for 3 days then 1 daily for 3 days 20 25/02/05 PREDNISONE 42811917917 Active Tito Burkett MD Active TRIAMCINOLONE ACETONIDE 0.1 % CREA apply q 8 hours sparingly to itchy area's TRIAMCINOLONE ACETONIDE 80008775979 No Longer Active Tito Burkett MD Active TRIAMCINOLONE ACETONIDE 0.1 % CREA apply q 8 hours sparingly to itchy area's TRIAMCINOLONE ACETONIDE 0.1 % CREA 5222727 TRIAMCINOLONE ACETONIDE Inactive Vital Signs Date Name Value Unit Range Description blood pressure, diastolic - 8462-4 85 mm[Hg] [...] Measured Encounters Code Encounter Date Provider Facility CPT-35918 Level 3 Est. Patient 15:10:02 CDT Daniel Nguyễn MD [facility] CPT-97542 Level 2 New Patient 16:16:35 CDT Tito moore MD [facility] CPT-83627 Level 3 Est. 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 Patient 19:59:16 CDT Amandeep hill [facility]
--- OUTSIDE RECORDS SUMMARY | 2020-05-13 21:01 | XMS REPORT | Clinical Summary ---
Author Author Admin, Isadora Graham Organization [facility] Address Unknown Phone Unavailable Allergies, Adverse Reactions, [...] as needed for pain 201 05/18/24 IBUPROFEN 75515121129 No Longer Active Malia Bright MD A ctive AMOXICILLIN 500 MG TABS 2 tabs twice a day for 10 days AMOXICILLIN 34298430805 No Longer Active Tito Burkett MD Activ e PREDNISONE 20 MG TABS 2 daily for 3 days then 1 daily for 3 days PREDNISONE 89572726813 No Longer Active Tito Burkett MD Active FLUTICASONE PROPIONATE 50 MCG/ACT SUSP 1 to 2 sprays e ach nostril daily for allergies FLUTICASONE PROPIONATE 77407146648 Active R kennedy Burkett MD Active FLUTICASONE PROPIONATE 50 MCG/ACT SUSP 1 to 2 sprays e ach nostril daily for allergies FLUTICASONE PROPIONATE 59888320939 No Lo nger Active Malia Bright MD Active PREDNISONE 20 MG TABS 2 daily for 3 days then 1 daily for 3 days PREDNISONE 97356053866 No Longer Active Amandeep Castillo DO Act ce PREDNISONE 20 MG TAB 2 tabs daily for 3 days, 1 t ab daily for 3 days, 1/2 tab daily for 2 days PREDNISONE 93675095431 No Longer Active Daniel Nguyễn MD Active CEFDINIR 300 MG CAPS by mouth twice a day CEFDI LANEY 97544788952 No Longer Active Amandeep Castillo DO Active TRIAMCINOLONE ACETONIDE 0.1 % CREA apply q 8 hours sparingly to itchy area's TRIAMCINOLONE ACETONIDE 72354484159 No Longer Active Tito Burkett MD Active TRIAMCINOLONE ACETONIDE 0.1 % CREA apply q 8 hours sparingly to itchy area's TRIAMCINOLONE ACETONIDE 0.1 % CREA 2904273 TRIAMCINOLONE ACETONIDE Inactive PREDNISONE 20 MG TABS 2 daily for 3 days then 1 daily for 3 days PREDNISONE 20 MG TABS 936778 PREDNISONE Inactive FLUTICASONE PROPIONATE 50 MCG/ACT SUSP 1 to 2 sprays e ach nostril daily for allergies FLUTICASONE PROPIONATE 50 MCG/ACT SUSP 17 68462 FLUTICASONE PROPIONATE Inactive PREDNISONE 20 MG TABS 2 daily for 3 days then 1 daily for 3 days PREDNISONE 20 MG TABS 765410 PREDNISONE Inactive AMOXICILLIN 500 MG TABS 2 tabs twice a day for 10 days AMOXICILLIN 500 MG TABS 738309 AMOXICILLIN Inactive IBUPROFEN 600 MG TABS 1 three times a day as needed for pain 201 05/18/24 IBUPROFEN 600 MG TABS 762744 IBUPROFEN Inactive CEFDINIR 300 MG CAPS by mouth twice a day CEFDINIR 300 MG CAPS 620557 CEFDINIR Inactive PREDNISONE 20 MG TAB 2 tabs daily for 3 days, 1 t ab daily for 3 days, 1/2 tab daily for 2 days PREDNISONE 20 MG TAB 558877 PREDNISON E Inactive Vital Signs Date Name [...] HEPATITIS B S AG W/, Chlamyd ia/GC APTIMA/41105, HIV-1/2 Agn/ ... - Chemistry hepatitis B surface antigen NON-REACTIVE NON-RE ACTIVE rapid plasma reagin antibody titer NON-REACTIVE NON-REACTIVE Lab Report: HEPATITIS B S AG W/, Chlamyd ia/GC APTIMA/47788, HIV-1/2 Agn/ ... - Lab chlamydia DNA probe NOT DETECTED NOT DETECTED Lab Report: HEPATITIS B S AG W/, Chlamyd ia/GC APTIMA/21050, HIV-1/2 Agn/ ... - Microbiology Neisseria gonorrhoeae DNA probe NOT DETECTED NO T DETECTED Office Procedure: Consult Colposcopy - C hemistry human chorionic gonadotropin , urine, qualitative (urine test) neg Office Visit: Irregular bleeding - Chemi stry human chorionic gonadotropin , urine, qualitative (urine test) Negative Encounters Code Encounter Date Provider Facility CPT-63079 Level 4 Est. Patient 09:59:10 CDT Malia mckeon MD [facility] CPT-44578 Level 3 Est. Patient 15:42:35 CDT Tito Burkett MD [facility] CPT-57155 Level 3 Est. Patient 10:58:07 ACIDIZER Tito Burkett MD [facility] CPT-10666 Level 3 Est. Patient 16:51:44 CDT Amandeep hill [facility] CPT-18588 Level 3 Est. Patient 15:10:02 CDT Daniel Nguyễn MD [facility] CPT-00204 Level 2 New Patient 16:16:35 CDT Tito moore MD [facility] CPT-50677 Level 3 Est. Patient 18:15:[address] [facility] CPT-43680 Level 3 Est. Patient 19:59:[address] [facility] Procedures Code Procedure Name Date Entry Date Standard Desc ription CPT-47496 [facility] Urine - CARLY ONLY 10:08:25 CDT 07/10 CPT-68768 Wet Prep/CEM - LAB USE ONLY 11:16:10 CDT 20 27/08/24 CPT-57495 [place] of cervix w bx ECC 10:13:06 CDT CPT-OV Office Visit 10:13:06 CDT
--- OUTSIDE RECORDS SUMMARY | 2020-05-13 21:01 | XMS REPORT | Clinical Summary ---
[...] as needed for pain 201 05/18/24 IBUPROFEN [id number] No Longer Active Malia Bright MD A ctive AMOXICILLIN 500 MG TABS 2 tabs twice a day for 10 days AMOXICILLIN 68500857032 No Longer Active Tito Burkett MD Activ e PREDNISONE 20 MG TABS 2 daily for 3 days then 1 daily for 3 days PREDNISONE 95010014147 No Longer Active Tito Burkett MD Active FLUTICASONE PROPIONATE 50 MCG/ACT SUSP 1 to 2 sprays e ach nostril daily for allergies FLUTICASONE PROPIONATE 24982358970 Active R kennedy Burkett MD Active FLUTICASONE PROPIONATE 50 MCG/ACT SUSP 1 to 2 sprays e ach nostril daily for allergies FLUTICASONE PROPIONATE 83561779132 No Lo nger Active Malia Bright MD Active PREDNISONE 20 MG TABS 2 daily for 3 days then 1 daily for 3 days PREDNISONE 99658370493 No Longer Active Amandeep Castillo DO Act ce PREDNISONE 20 MG TAB 2 tabs daily for 3 days, 1 t ab daily for 3 days, 1/2 tab daily for 2 days PREDNISONE 39892239932 No Longer Active Daniel Nguyễn MD Active CEFDINIR 300 MG CAPS by mouth twice a day CEFDI LANEY 76486201334 No Longer Active Amandeep Castillo DO Active TRIAMCINOLONE ACETONIDE 0.1 % CREA apply q 8 hours sparingly to itchy area's TRIAMCINOLONE ACETONIDE 12400528631 No Longer Active Tito Burkett MD Active TRIAMCINOLONE ACETONIDE 0.1 % CREA apply q 8 hours sparingly to itchy area's TRIAMCINOLONE ACETONIDE 0.1 % CREA 0625407 TRIAMCINOLONE ACETONIDE Inactive PREDNISONE 20 MG TABS 2 daily for 3 days then 1 daily for 3 days PREDNISONE 20 MG TABS 484251 PREDNISONE Inactive FLUTICASONE PROPIONATE 50 MCG/ACT SUSP 1 to 2 sprays e ach nostril daily for allergies FLUTICASONE PROPIONATE 50 MCG/ACT SUSP 17 16758 FLUTICASONE PROPIONATE Inactive PREDNISONE 20 MG TABS 2 daily for 3 days then 1 daily for 3 days PREDNISONE 20 MG TABS 570194 PREDNISONE Inactive AMOXICILLIN 500 MG TABS 2 tabs twice a day for 10 days AMOXICILLIN 500 MG TABS 767060 AMOXICILLIN Inactive IBUPROFEN 600 MG TABS 1 three times a day as needed for pain 201 05/18/24 IBUPROFEN 600 MG TABS 895192 IBUPROFEN Inactive CEFDINIR 300 MG CAPS by mouth twice a day CEFDINIR 300 MG CAPS 415243 CEFDINIR Inactive PREDNISONE 20 MG TAB 2 tabs daily for 3 days, 1 t ab daily for 3 days, 1/2 tab daily for 2 days PREDNISONE 20 MG TAB 951229 PREDNISON E Inactive Vital Signs Date Name [...] Value Unit Range Description Lab Report: Chlamydia/GC APTIMA/26858 - Lab chlamydia DNA probe NOT DETECTED NOT DETECTED Lab Report: Chlamydia/GC APTIMA/54549 - Microbiology Neisseria gonorrhoeae DNA probe NOT DETECTED NO T DETECTED Lab Report: HEPATITIS B S AG W/, Chlamyd ia/GC APTIMA/11582, HIV-1/2 Agn/ ... - Chemistry hepatitis B surface antigen NON-REACTIVE NON-RE ACTIVE rapid plasma reagin antibody titer NON-REACTIVE NON-REACTIVE Lab Report: HEPATITIS B S AG W/, Chlamyd ia/GC APTIMA/33936, HIV-1/2 Agn/ ... - Lab chlamydia DNA probe NOT DETECTED NOT DETECTED Lab Report: HEPATITIS B S AG W/, Chlamyd ia/GC APTIMA/29031, HIV-1/2 Agn/ ... - Microbiology Neisseria gonorrhoeae DNA probe NOT DETECTED NO T DETECTED Office Procedure: Consult Colposcopy - C hemistry human chorionic gonadotropin , urine, qualitative (urine test) neg Office Visit: Irregular bleeding - Chemi stry human chorionic gonadotropin , urine, qualitative (urine test) Negative Encounters Code Encounter Date Provider Facility CPT-65558 Level 4 Est. Patient 09:59:10 CDT Malia mckeon MD [facility] CPT-93399 Level 3 Est. Patient 15:42:35 CDT Tito Burkett MD [facility] CPT-63620 Level 3 Est. 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 Patient 16:51:44 CDT Amandeep hill [facility] CPT-40151 Level 3 Est. Patient 15:10:02 CDT Daniel Nguyễn MD [facility] CPT-14108 Level 2 New Patient 16:16:35 CDT Tito moore MD [facility] CPT-50270 Level 3 Est. Patient 18:15:55 INCUBATOR TENDER Amandeep hill [facility] CPT-55587 Level 3 Est. Patient 19:59:16 CDT Amandeep hill [facility] Procedures Code Procedure Name Date Entry Date Standard Desc ription CPT-96682 [facility] Urine - CARLY ONLY 10:08:25 CDT 07/10 CPT-31422 Wet Prep/CEM - LAB USE ONLY 11:16:10 CDT 20 27/08/24 CPT-08905 [place] of cervix w bx ECC 10:13:06 CDT CPT-OV Office Visit 10:13:06 CDT
--- OUTSIDE RECORDS SUMMARY | 2020-05-13 21:01 | XMS REPORT | Clinical Summary ---
Author Author Admin, Isadora Graham Organization [facility] Address Unknown Phone Unavailable Allergies, Adverse [...] Active Malia Bright MD Irregular menstrual cycle APHTHOUS ULCERS ICD-528.2 Inactive Tito Boudreaux MD ACUTE PHARYNGITIS ICD-462 Inactive Tito moore MD Medication List Medication Instructions Start Date Stop Date Generic Name NDC Status Provider Patient Instruction IBUPROFEN 600 MG TABS 1 three times a day as needed for pain 201 05/18/24 IBUPROFEN [id number] No Longer Active Malia Bright MD A ctive AMOXICILLIN 500 MG TABS 2 tabs twice a day for 10 days AMOXICILLIN 92770438972 No Longer Active Tito Burkett MD Activ e PREDNISONE 20 MG TABS 2 daily for 3 days then 1 daily for 3 days PREDNISONE 34417591106 No Longer Active Tito Burkett MD Active FLUTICASONE PROPIONATE 50 MCG/ACT SUSP 1 to 2 sprays e ach nostril daily for allergies FLUTICASONE PROPIONATE 63645808119 Active R kennedy Burkett MD Active FLUTICASONE PROPIONATE 50 MCG/ACT SUSP 1 to 2 sprays e ach nostril daily for allergies FLUTICASONE PROPIONATE 57405783008 No Lo nger Active Malia Bright MD Active PREDNISONE 20 MG TABS 2 daily for 3 days then 1 daily for 3 days PREDNISONE 38325487792 No Longer Active Amandeep Castillo DO Act ce PREDNISONE 20 MG TAB 2 tabs daily for 3 days, 1 t ab daily for 3 days, 1/2 tab daily for 2 days PREDNISONE 27929048757 No Longer Active Daniel Nguyễn MD Active CEFDINIR 300 MG CAPS by mouth twice a day CEFDI LANEY 63964134716 No Longer Active Amandeep Castillo DO Active TRIAMCINOLONE ACETONIDE 0.1 % CREA apply q 8 hours sparingly to itchy area's TRIAMCINOLONE ACETONIDE 04042377314 No Longer Active Tito Burkett MD Active TRIAMCINOLONE ACETONIDE 0.1 % CREA apply q 8 hours sparingly to itchy area's TRIAMCINOLONE ACETONIDE 0.1 % CREA 4379531 TRIAMCINOLONE ACETONIDE Inactive PREDNISONE 20 MG TABS 2 daily for 3 days then 1 daily for 3 days PREDNISONE 20 MG TABS 837549 PREDNISONE Inactive FLUTICASONE PROPIONATE 50 MCG/ACT SUSP 1 to 2 sprays e ach nostril daily for allergies FLUTICASONE PROPIONATE 50 MCG/ACT SUSP 17 27102 FLUTICASONE PROPIONATE Inactive PREDNISONE 20 MG TABS 2 daily for 3 days then 1 daily for 3 days PREDNISONE 20 MG TABS 540947 PREDNISONE Inactive AMOXICILLIN 500 MG TABS 2 tabs twice a day for 10 days AMOXICILLIN 500 MG TABS 326127 AMOXICILLIN Inactive IBUPROFEN 600 MG TABS 1 three times a day as needed for pain 201 05/18/24 IBUPROFEN 600 MG TABS 810899 IBUPROFEN Inactive CEFDINIR 300 MG CAPS by mouth twice a day CEFDINIR 300 MG CAPS 641139 CEFDINIR Inactive PREDNISONE 20 MG TAB 2 tabs daily for 3 days, 1 t ab daily for 3 days, 1/2 tab daily for 2 days PREDNISONE 20 MG TAB 373969 PREDNISON E Inactive Vital Signs Date Name Value Unit Range Description blood pressure, diastolic 66 mm[Hg] BP kinsey [...] HEPATITIS B S AG W/, Chlamyd ia/GC APTIMA/20212, HIV-1/2 Agn/ ... - Chemistry hepatitis B surface antigen NON-REACTIVE NON-RE ACTIVE rapid plasma reagin antibody titer NON-REACTIVE NON-REACTIVE Lab Report: HEPATITIS B S AG W/, Chlamyd ia/GC APTIMA/89383, HIV-1/2 Agn/ ... - Lab chlamydia DNA probe NOT DETECTED NOT DETECTED Lab Report: HEPATITIS B S AG W/, Chlamyd ia/GC APTIMA/08615, HIV-1/2 Agn/ ... - Microbiology Neisseria gonorrhoeae DNA probe NOT DETECTED NO T DETECTED Office Procedure: Consult Colposcopy - C hemistry human chorionic gonadotropin , urine, qualitative (urine test) neg Encounters Code Encounter Date Provider Facility CPT-59506 Level 4 Est. Patient 09:59:10 CDT Malia mckeon MD [facility] CPT-56372 Level 3 Est. Patient 15:42:35 CDT Tito Burkett MD [facility] CPT-28019 Level 3 Est. 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 Patient 16:51:44 CDT Amandeep hill DO [facility] CPT-82298 Level 3 Est. Patient 15:10:02 CDT Daniel Nguyễn MD [facility] CPT-87423 Level 2 New Patient 16:16:35 CDT Tito moore MD [facility] CPT-82653 Level 3 Est. Patient 18:15:55 DIETARY SERVICE AIDE Amandeep hill [facility] CPT-59472 Level 3 Est. Patient 19:59:16 CDT Amandeep hill [facility] Procedures Code Procedure Name Date Entry Date Standard Desc ription CPT-04430 [facility] Urine - CARLY ONLY 10:08:25 CDT 07/10 CPT-28117 Wet Prep/CEM - LAB USE ONLY 11:16:10 CDT 20 27/08/24 CPT-53537 [place] of cervix w bx ECC 10:13:06 CDT CPT-OV Office Visit 10:13:06 CDT
--- OUTSIDE RECORDS SUMMARY | 2020-05-13 21:01 | XMS REPORT | Clinical Summary ---
Author Author Admin, Isadora Graham Organization [facility] Address Unknown Phone Unavailable Allergies, Adverse Reactions, [...] 462 Active Tito Burkett MD Acute pharyngitis APHTHOUS ULCERS ICD-528.2 Inactive Tito Boudreaux MD ACUTE PHARYNGITIS ICD-462 Inactive Tito moore MD Medication List Medication Instructions Start Date Stop Date Generic Name NDC Status Provider Patient Instruction FLUTICASONE PROPIONATE 50 MCG/ACT SUSP 1 to 2 sprays e ach nostril daily for allergies FLUTICASONE PROPIONATE 47541773442 Active R kennedy Burkett MD Active PREDNISONE 20 MG TABS 2 daily for 3 days then 1 daily for 3 days 27/09/25 PREDNISONE 20769510016 Active Tito Burkett MD Active AMOXICILLIN 500 MG TABS 2 tabs twice a day for 10 days AMOXICILLIN 10550673426 Active Tito Burkett MD Active FLUTICASONE PROPIONATE 50 MCG/ACT SUSP 1 to 2 sprays e ach nostril daily for allergies FLUTICASONE PROPIONATE 60683425764 No Lo nger Active Malia Bright MD Active PREDNISONE 20 MG TABS 2 daily for 3 days then 1 daily for 3 days PREDNISONE 57572890191 No Longer Active Amandeep Castillo DO Act ce PREDNISONE 20 MG TAB 2 tabs daily for 3 days, 1 t ab daily for 3 days, 1/2 tab daily for 2 days PREDNISONE 78845489087 No Longer Active Daniel Nguyễn MD Active CEFDINIR 300 MG CAPS by mouth twice a day CEFDI LANEY 73607409752 No Longer Active Amandeep Castillo DO Active TRIAMCINOLONE ACETONIDE 0.1 % CREA apply q 8 hours sparingly to itchy area's TRIAMCINOLONE ACETONIDE 42951100437 No Longer Active Tito Burkett MD Active TRIAMCINOLONE ACETONIDE 0.1 % CREA apply q 8 hours sparingly to itchy area's TRIAMCINOLONE ACETONIDE 0.1 % CREA 2232010 TRIAMCINOLONE ACETONIDE Inactive PREDNISONE 20 MG TABS 2 daily for 3 days then 1 daily for 3 days PREDNISONE 20 MG TABS 260279 PREDNISONE Inactive FLUTICASONE PROPIONATE 50 MCG/ACT SUSP 1 to 2 sprays e ach nostril daily for allergies FLUTICASONE PROPIONATE 50 MCG/ACT SUSP 17 50007 FLUTICASONE PROPIONATE Inactive CEFDINIR 300 MG CAPS by mouth twice a day CEFDINIR 300 MG CAPS 707530 CEFDINIR Inactive PREDNISONE 20 MG TAB 2 tabs daily for 3 days, 1 t ab daily for 3 days, 1/2 tab daily for 2 days PREDNISONE 20 MG TAB 348558 PREDNISON E Inactive Vital Signs Date Name [...] HEPATITIS B S AG W/, Chlamyd ia/GC APTIMA/59785, HIV-1/2 Agn/ ... - Chemistry hepatitis B surface antigen NON-REACTIVE NON-RE ACTIVE rapid plasma reagin antibody titer NON-REACTIVE NON-REACTIVE Lab Report: HEPATITIS B S AG W/, Chlamyd ia/GC APTIMA/35774, HIV-1/2 Agn/ ... - Lab chlamydia DNA probe NOT DETECTED NOT DETECTED Lab Report: HEPATITIS B S AG W/, Chlamyd ia/GC APTIMA/64027, HIV-1/2 Agn/ ... - Microbiology Neisseria gonorrhoeae DNA probe NOT DETECTED NO T DETECTED Office Procedure: Consult Colposcopy - C hemistry human chorionic gonadotropin , urine, qualitative (urine test) neg Encounters Code Encounter Date Provider Facility CPT-59333 Level 3 Est. 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 CPT-35646 Level 3 Est. Patient 16:51:44 CDT Amandeep hill [facility] CPT-07214 Level 3 Est. Patient 15:10:02 CDT Daniel Nguyễn MD [facility] CPT-01947 Level 2 New Patient 16:16:35 CDT Tito moore MD [facility] CPT-79832 Level 3 Est. Patient 18:15:55 LABORER SAWMILL [facility]andeep [facility] CPT-13556 Level 3 Est. Patient 19:59:16 CDT Amandeep [facility] Procedures Code Procedure Name Date Entry Date Standard Desc ription CPT-51308 Wet Prep/CEM - LAB USE ONLY 11:16:10 CDT 20 27/08/24 CPT-25094 [place] of cervix w bx ECC 10:13:06 CDT CPT-OV Office Visit 10:13:06 CDT
--- OUTSIDE RECORDS SUMMARY | 2020-05-13 21:01 | XMS REPORT | Clinical Summary ---
Author Author Admin, Isadora Graham Organization [facility] Address Unknown Phone Unavailable Allergies, Adverse Reactions, [...] as needed for pain 201 05/18/24 IBUPROFEN 48907107785 No Longer Active Malia Bright MD A ctive AMOXICILLIN 500 MG TABS 2 tabs twice a day for 10 days AMOXICILLIN 35318408152 No Longer Active Tito Burkett MD Activ e PREDNISONE 20 MG TABS 2 daily for 3 days then 1 daily for 3 days PREDNISONE 27947046992 No Longer Active Tito Burkett MD Active FLUTICASONE PROPIONATE 50 MCG/ACT SUSP 1 to 2 sprays e ach nostril daily for allergies FLUTICASONE PROPIONATE 48678699521 Active R kennedy Burkett MD Active FLUTICASONE PROPIONATE 50 MCG/ACT SUSP 1 to 2 sprays e ach nostril daily for allergies FLUTICASONE PROPIONATE 92838415448 No Lo nger Active Malia Bright MD Active PREDNISONE 20 MG TABS 2 daily for 3 days then 1 daily for 3 days PREDNISONE 51707455670 No Longer Active Amandeep Castillo DO Act ce PREDNISONE 20 MG TAB 2 tabs daily for 3 days, 1 t ab daily for 3 days, 1/2 tab daily for 2 days PREDNISONE 51937552949 No Longer Active Daniel Nguyễn MD Active CEFDINIR 300 MG CAPS by mouth twice a day CEFDI LANEY 16291147221 No Longer Active Amandeep Castillo DO Active TRIAMCINOLONE ACETONIDE 0.1 % CREA apply q 8 hours sparingly to itchy area's TRIAMCINOLONE ACETONIDE 29086552619 No Longer Active Tito Burkett MD Active TRIAMCINOLONE ACETONIDE 0.1 % CREA apply q 8 hours sparingly to itchy area's TRIAMCINOLONE ACETONIDE 0.1 % CREA 1162581 TRIAMCINOLONE ACETONIDE Inactive PREDNISONE 20 MG TABS 2 daily for 3 days then 1 daily for 3 days PREDNISONE 20 MG TABS 842486 PREDNISONE Inactive FLUTICASONE PROPIONATE 50 MCG/ACT SUSP 1 to 2 sprays e ach nostril daily for allergies FLUTICASONE PROPIONATE 50 MCG/ACT SUSP 17 12075 FLUTICASONE PROPIONATE Inactive PREDNISONE 20 MG TABS 2 daily for 3 days then 1 daily for 3 days PREDNISONE 20 MG TABS 804637 PREDNISONE Inactive AMOXICILLIN 500 MG TABS 2 tabs twice a day for 10 days AMOXICILLIN 500 MG TABS 986258 AMOXICILLIN Inactive IBUPROFEN 600 MG TABS 1 three times a day as needed for pain 201 05/18/24 IBUPROFEN 600 MG TABS 200142 IBUPROFEN Inactive CEFDINIR 300 MG CAPS by mouth twice a day CEFDINIR 300 MG CAPS 099135 CEFDINIR Inactive PREDNISONE 20 MG TAB 2 tabs daily for 3 days, 1 t ab daily for 3 days, 1/2 tab daily for 2 days PREDNISONE 20 MG TAB 496287 PREDNISON E Inactive Vital Signs Date Name [...] (L) - Chemistry sodium, serum 138 mmol/L 660-535 0300/09/06 carbon dioxide, venous blood 21.9 mmol/L 21.0-32 [...] 348 10^3/MM^3 10*3/mm3 142-424 Lab Report: Chlamydia/GC APTIMA/92329 - Lab chlamydia DNA probe NOT DETECTED NOT DETECTED Lab Report: Chlamydia/GC APTIMA/95837 - Microbiology Neisseria gonorrhoeae DNA probe NOT DETECTED NO T DETECTED Lab Report: HEPATITIS B S AG W/, Chlamyd ia/GC APTIMA/41094, HIV-1/2 Agn/ ... - Chemistry hepatitis B surface antigen NON-REACTIVE NON-RE ACTIVE rapid plasma reagin antibody titer NON-REACTIVE NON-REACTIVE Lab Report: HEPATITIS B S AG W/, Chlamyd ia/GC APTIMA/35634, HIV-1/2 Agn/ ... - Lab chlamydia DNA probe NOT DETECTED NOT DETECTED Lab Report: HEPATITIS B S AG W/, Chlamyd ia/GC APTIMA/12504, HIV-1/2 Agn/ ... - Microbiology Neisseria gonorrhoeae DNA probe NOT DETECTED NO T DETECTED Office Procedure: Consult Colposcopy - C hemistry human chorionic gonadotropin , urine, qualitative (urine test) neg Office Visit: Irregular bleeding - Chemi stry human chorionic gonadotropin , urine, qualitative (urine test) Negative Encounters Code Encounter Date Provider Facility CPT-31808 Level 4 Est. Patient 09:59:10 CDT Malia mckeon MD [facility] CPT-35022 Level 3 Est. Patient 15:42:35 CDT Tito Burkett MD [facility] CPT-59444 Level 3 Est. 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 Patient 16:51:44 CDT Amandeep hill [facility] CPT-28184 Level 3 Est. Patient 15:10:02 CDT Daniel Nguyễn MD [facility] CPT-24330 Level 2 New Patient 16:16:35 CDT Tito moore MD [facility] CPT-21475 Level 3 Est. 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 Patient 19:59:16 CDT Amandeep hill [facility] Procedures Code Procedure Name Date Entry Date Standard Desc ription [facility] - [facility] ONLY 10:08:25 CDT 07/10 CPT-46872 Wet Prep/CEM - LAB USE ONLY 11:16:10 CDT 20 27/08/24 CPT-95495 [place] of cervix w bx ECC 10:13:06 CDT CPT-OV Office Visit 10:13:06 CDT
--- OUTSIDE RECORDS SUMMARY | 2020-05-13 21:01 | XMS REPORT | Clinical Summary ---
Author Author Admin, Isadora Graham Organization [facility] Address Unknown Phone Unavailable Allergies, Adverse [...] ach nostril daily for allergies FLUTICASONE PROPIONATE 43536909701 No nger Active Malia Bright MD Active PREDNISONE 20 MG TABS 2 daily for 3 days then 1 daily for 3 days PREDNISONE 63398906130 No Longer Active Amandeep Castillo DO Act ce PREDNISONE 20 MG TAB 2 tabs daily for 3 days, 1 t ab daily for 3 days, 1/2 tab daily for 2 days PREDNISONE 86182033574 No Longer Active Daniel Nguyễn MD Active CEFDINIR 300 MG CAPS by mouth twice a day CEFDI LANEY 95985190901 No Longer Active Amandeep Castillo DO Active TRIAMCINOLONE ACETONIDE 0.1 % CREA apply q 8 hours sparingly to itchy area's TRIAMCINOLONE ACETONIDE 72800398445 No Longer Active Tito Burkett MD Active TRIAMCINOLONE ACETONIDE 0.1 % CREA apply q 8 hours sparingly to itchy area's TRIAMCINOLONE ACETONIDE 0.1 % CREA 0596190 TRIAMCINOLONE ACETONIDE Inactive PREDNISONE 20 MG TABS 2 daily for 3 days then 1 daily for 3 days PREDNISONE 20 MG TABS 869364 PREDNISONE Inactive FLUTICASONE PROPIONATE 50 MCG/ACT SUSP 1 to 2 sprays e ach nostril daily for allergies FLUTICASONE PROPIONATE 50 MCG/ACT SUSP 17 69229 FLUTICASONE PROPIONATE Inactive CEFDINIR 300 MG CAPS by mouth twice a day CEFDINIR 300 MG CAPS 538810 CEFDINIR Inactive PREDNISONE 20 MG TAB 2 tabs daily for 3 days, 1 t ab daily for 3 days, 1/2 tab daily for 2 days PREDNISONE 20 MG TAB 829975 PREDNISON E Inactive Vital Signs Date Name [...] Measured Encounters Code Encounter Date Provider Facility CPT-35254 Level 3 Est. Patient 16:51:44 CDT Amandeep hill [facility] CPT-11984 Level 3 Est. Patient 15:10:02 CDT Daniel Nguyễn MD [facility] CPT-84561 Level 2 New Patient 16:16:35 CDT Tito moore MD [facility] CPT-75782 Level 3 Est. 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 Patient 19:59:16 CDT Amandeep hill [facility] Procedures Code Procedure Name Date Entry Date Standard Desc ription CPT-29537 Wet Prep/CEM - LAB USE ONLY 11:16:10 CDT 20 27/08/24 CPT-84769 [place] of cervix w bx ECC 10:13:06 CDT CPT-OV Office Visit 10:13:06 CDT
--- OUTSIDE RECORDS SUMMARY | 2020-05-13 21:02 | XMS REPORT | Clinical Summary ---
Author Author Admin, Isadora Graham Organization [facility] Address Unknown Phone Unavailable Allergies, [...] ach nostril daily for allergies FLUTICASONE PROPIONATE 59513877398 Active R kennedy Burkett MD Active PREDNISONE 20 MG TABS 2 daily for 3 days then 1 daily for 3 days 27/09/25 PREDNISONE 80534935304 Active Tito Burkett MD Active AMOXICILLIN 500 MG TABS 2 tabs twice a day for 10 days AMOXICILLIN 21423835275 Active Tito Burkett MD Active FLUTICASONE PROPIONATE 50 MCG/ACT SUSP 1 to 2 sprays e ach nostril daily for allergies FLUTICASONE PROPIONATE 53409126914 No Lo nger Active Malia Bright MD Active PREDNISONE 20 MG TABS 2 daily for 3 days then 1 daily for 3 days PREDNISONE 07074054627 No Longer Active Amandeep Castillo DO Act ce PREDNISONE 20 MG TAB 2 tabs daily for 3 days, 1 t ab daily for 3 days, 1/2 tab daily for 2 days PREDNISONE 69341179354 No Longer Active Daniel Nguyễn MD Active CEFDINIR 300 MG CAPS by mouth twice a day CEFDI LANEY 13037688076 No Longer Active Amandeep Castillo DO Active TRIAMCINOLONE ACETONIDE 0.1 % CREA apply q 8 hours sparingly to itchy area's TRIAMCINOLONE ACETONIDE 95898092130 No Longer Active Tito Burkett MD Active TRIAMCINOLONE ACETONIDE 0.1 % CREA apply q 8 hours sparingly to itchy area's TRIAMCINOLONE ACETONIDE 0.1 % CREA 0652086 TRIAMCINOLONE ACETONIDE Inactive PREDNISONE 20 MG TABS 2 daily for 3 days then 1 daily for 3 days PREDNISONE 20 MG TABS 407793 PREDNISONE Inactive FLUTICASONE PROPIONATE 50 MCG/ACT SUSP 1 to 2 sprays e ach nostril daily for allergies FLUTICASONE PROPIONATE 50 MCG/ACT SUSP 17 21900 FLUTICASONE PROPIONATE Inactive CEFDINIR 300 MG CAPS by mouth twice a day CEFDINIR 300 MG CAPS 673280 CEFDINIR Inactive PREDNISONE 20 MG TAB 2 tabs daily for 3 days, 1 t ab daily for 3 days, 1/2 tab daily for 2 days PREDNISONE 20 MG TAB 214713 PREDNISON E Inactive Vital Signs Date Name Value Unit Range Description blood pressure, diastolic - 8462-4 79 mm[Hg] BP kinsey blood pressure, systolic - 8480-6 127 mm[Hg] BP sys pulse rate E&M - 8867-4 88 /min H eart rate temperature E&M 98.9 [degF] Body temp erature weight E&M - 3141-9 259.5 [lb_av] Weigh t Measured blood pressure, diastolic - 8462-4 77 mm[Hg] [...] HEPATITIS B S AG W/, Chlamyd ia/GC APTIMA/30184, HIV-1/2 Agn/ ... - Chemistry hepatitis B surface antigen NON-REACTIVE NON-RE ACTIVE Lab Report: HEPATITIS B S AG W/, Chlamyd ia/GC APTIMA/65455, HIV-1/2 Agn/ ... - Lab chlamydia DNA probe NOT DETECTED NOT DETECTED Lab Report: HEPATITIS B S AG W/, Chlamyd ia/GC APTIMA/39752, HIV-1/2 Agn/ ... - Microbiology Neisseria gonorrhoeae DNA probe NOT DETECTED NO T DETECTED Lab Report: HEPATITIS B S AG W/, Chlamyd ia/GC APTIMA/61990, HIV-1/2 Agn/ ... - Serology rapid plasma reagin antibody titer NON-REACTIVE NON-REACTIVE Office Procedure: Consult Colposcopy - C hemistry human chorionic gonadotropin , urine, qualitative (urine test) neg Encounters Code Encounter Date Provider Facility CPT-38283 Level 3 Est. 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 Patient 16:51:44 CDT Amandeep hill DO [facility] CPT-52903 Level 3 Est. Patient 15:10:02 CDT Daniel Nguyễn MD [facility] CPT-70779 Level 2 New Patient 16:16:35 CDT Tito moore MD [facility] CPT-67067 Level 3 Est. 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 Patient 19:59:16 CDT Amandeep hill [facility] Procedures Code Procedure Name Date Entry Date Standard Desc ription CPT-76336 Wet Prep/CEM - LAB USE ONLY 11:16:10 CDT 20 27/08/24 CPT-15436 [place] of cervix w bx ECC 10:13:06 CDT CPT-OV Office Visit 10:13:06 CDT
--- OUTSIDE RECORDS SUMMARY | 2020-05-13 21:02 | XMS REPORT | Clinical Summary ---
Author Author Admin, Isadora Graham Organization [facility] Address Unknown Phone Unavailable Allergies, Adverse Reactions, [...] ach nostril daily for allergies FLUTICASONE PROPIONATE [id number] No nger Active Malia Bright MD Active PREDNISONE 20 MG TABS 2 daily for 3 days then 1 daily for 3 days PREDNISONE 28373774687 No Longer Active Amandeep Castillo DO Act ce PREDNISONE 20 MG TAB 2 tabs daily for 3 days, 1 t ab daily for 3 days, 1/2 tab daily for 2 days PREDNISONE 29186301054 No Longer Active Daniel Nguyễn MD Active CEFDINIR 300 MG CAPS by mouth twice a day CEFDI LANEY 74364574451 No Longer Active Amandeep Castillo DO Active TRIAMCINOLONE ACETONIDE 0.1 % CREA apply q 8 hours sparingly to itchy area's TRIAMCINOLONE ACETONIDE 45116250792 No Longer Active Tito Burkett MD Active TRIAMCINOLONE ACETONIDE 0.1 % CREA apply q 8 hours sparingly to itchy area's TRIAMCINOLONE ACETONIDE 0.1 % CREA 8163115 TRIAMCINOLONE ACETONIDE Inactive PREDNISONE 20 MG TABS 2 daily for 3 days then 1 daily for 3 days PREDNISONE 20 MG TABS 986793 PREDNISONE Inactive FLUTICASONE PROPIONATE 50 MCG/ACT SUSP 1 to 2 sprays e ach nostril daily for allergies FLUTICASONE PROPIONATE 50 MCG/ACT SUSP 17 69745 FLUTICASONE PROPIONATE Inactive CEFDINIR 300 MG CAPS by mouth twice a day CEFDINIR 300 MG CAPS 183212 CEFDINIR Inactive PREDNISONE 20 MG TAB 2 tabs daily for 3 days, 1 t ab daily for 3 days, 1/2 tab daily for 2 days PREDNISONE 20 MG TAB 420176 PREDNISON E Inactive Vital Signs Date Name [...] HEPATITIS B S AG W/, Chlamyd ia/GC APTIMA/04224, HIV-1/2 Agn/ ... - Chemistry hepatitis B surface antigen NON-REACTIVE NON-RE ACTIVE Lab Report: HEPATITIS B S AG W/, Chlamyd ia/GC APTIMA/21412, HIV-1/2 Agn/ ... - Lab chlamydia DNA probe NOT DETECTED NOT DETECTED Lab Report: HEPATITIS B S AG W/, Chlamyd ia/GC APTIMA/28272, HIV-1/2 Agn/ ... - Microbiology Neisseria gonorrhoeae DNA probe NOT DETECTED NO T DETECTED Lab Report: HEPATITIS B S AG W/, Chlamyd ia/GC APTIMA/23414, HIV-1/2 Agn/ ... - Serology rapid plasma reagin antibody titer NON-REACTIVE NON-REACTIVE Office Procedure: Consult Colposcopy - C hemistry human chorionic gonadotropin , urine, qualitative (urine test) neg Encounters Code Encounter Date Provider Facility CPT-99317 Level 3 Est. Patient 16:51:44 CDT Amandeep hill [facility] CPT-07125 Level 3 Est. Patient 15:10:02 CDT Daniel Nguyễn MD [facility] CPT-82408 Level 2 New Patient 16:16:35 CDT Tito moore MD [facility] CPT-22084 Level 3 Est. 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 CPT-37528 Level 3 Est. Patient 19:59:16 CDT Amandeep hill [facility] Procedures Code Procedure Name Date Entry Date Standard Desc ription CPT-93434 Wet Prep/CEM - LAB USE ONLY 11:16:10 CDT 20 27/08/24 CPT-34373 [place] of cervix w bx ECC 10:13:06 CDT CPT-OV Office Visit 10:13:06 CDT
--- OUTSIDE RECORDS SUMMARY | 2020-05-13 21:02 | XMS REPORT | Clinical Summary ---
Author Author Admin, Isadora Graham Organization [facility] Address Unknown Phone Unavailable Allergies, Adverse [...] then 1 daily for 3 days PREDNISONE 20878907270 No Longer Active Amandeep Castillo DO Act ce PREDNISONE 20 MG TAB 2 tabs daily for 3 days, 1 t ab daily for 3 days, 1/2 tab daily for 2 days PREDNISONE 42437617678 No Longer Active Daniel Nguyễn MD Active CEFDINIR 300 MG CAPS by mouth twice a day CEFDI LANEY 63972574252 No Longer Active Amandeep Castillo DO Active FLUTICASONE PROPIONATE 50 MCG/ACT SUSP 1 to 2 sprays e ach nostril daily for allergies FLUTICASONE PROPIONATE 84758892856 Active R kennedy Burkett MD Active TRIAMCINOLONE ACETONIDE 0.1 % CREA apply q 8 hours sparingly to itchy area's TRIAMCINOLONE ACETONIDE 90138819313 No Longer Active Tito Burkett MD Active TRIAMCINOLONE ACETONIDE 0.1 % CREA apply q 8 hours sparingly to itchy area's TRIAMCINOLONE ACETONIDE 0.1 % CREA 6052744 TRIAMCINOLONE ACETONIDE Inactive PREDNISONE 20 MG TABS 2 daily for 3 days then 1 daily for 3 days PREDNISONE 20 MG TABS 727217 PREDNISONE Inactive CEFDINIR 300 MG CAPS by mouth twice a day CEFDINIR 300 MG CAPS 625212 CEFDINIR Inactive PREDNISONE 20 MG TAB 2 tabs daily for 3 days, 1 t ab daily for 3 days, 1/2 tab daily for 2 days PREDNISONE 20 MG TAB 570839 PREDNISON E Inactive Vital Signs Date Name [...] Measured Encounters Code Encounter Date Provider Facility CPT-55887 Level 3 Est. Patient 16:51:44 CDT Amandeep hill [facility] CPT-12436 Level 3 Est. Patient 15:10:02 CDT Daniel Nguyễn MD [facility] CPT-68316 Level 2 New Patient 16:16:35 CDT Tito moore MD [facility] CPT-29412 Level 3 Est. 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 Patient 19:59:16 CDT Amandeep hill [facility]
--- OUTSIDE RECORDS SUMMARY | 2020-05-13 21:02 | XMS REPORT | Clinical Summary ---
Author Author Admin, Isadora Graham Organization [facility] Address Unknown Phone Unavailable Allergies, Adverse [...] ach nostril daily for allergies FLUTICASONE PROPIONATE 18951503381 Active R kennedy Burkett MD Active PREDNISONE 20 MG TABS 2 daily for 3 days then 1 daily for 3 days 27/09/25 PREDNISONE 25442090005 Active Tito Burkett MD Active AMOXICILLIN 500 MG TABS 2 tabs twice a day for 10 days AMOXICILLIN 61368926200 Active Tito Burkett MD Active FLUTICASONE PROPIONATE 50 MCG/ACT SUSP 1 to 2 sprays e ach nostril daily for allergies FLUTICASONE PROPIONATE 35767507524 No Lo nger Active Malia Bright MD Active PREDNISONE 20 MG TABS 2 daily for 3 days then 1 daily for 3 days PREDNISONE 97931211396 No Longer Active Amandeep Castillo DO Act ce PREDNISONE 20 MG TAB 2 tabs daily for 3 days, 1 t ab daily for 3 days, 1/2 tab daily for 2 days PREDNISONE 16786210433 No Longer Active Daniel Nguyễn MD Active CEFDINIR 300 MG CAPS by mouth twice a day CEFDI LANEY 16393330127 No Longer Active Amandeep Castillo DO Active TRIAMCINOLONE ACETONIDE 0.1 % CREA apply q 8 hours sparingly to itchy area's TRIAMCINOLONE ACETONIDE 43181611515 No Longer Active Tito Burkett MD Active TRIAMCINOLONE ACETONIDE 0.1 % CREA apply q 8 hours sparingly to itchy area's TRIAMCINOLONE ACETONIDE 0.1 % CREA 0034372 TRIAMCINOLONE ACETONIDE Inactive PREDNISONE 20 MG TABS 2 daily for 3 days then 1 daily for 3 days PREDNISONE 20 MG TABS 272309 PREDNISONE Inactive FLUTICASONE PROPIONATE 50 MCG/ACT SUSP 1 to 2 sprays e ach nostril daily for allergies FLUTICASONE PROPIONATE 50 MCG/ACT SUSP 17 89182 FLUTICASONE PROPIONATE Inactive CEFDINIR 300 MG CAPS by mouth twice a day CEFDINIR 300 MG CAPS 614513 CEFDINIR Inactive PREDNISONE 20 MG TAB 2 tabs daily for 3 days, 1 t ab daily for 3 days, 1/2 tab daily for 2 days PREDNISONE 20 MG TAB 945527 PREDNISON E Inactive Vital Signs Date Name [...] HEPATITIS B S AG W/, Chlamyd ia/GC APTIMA/02745, HIV-1/2 Agn/ ... - Chemistry hepatitis B surface antigen NON-REACTIVE NON-RE ACTIVE Lab Report: HEPATITIS B S AG W/, Chlamyd ia/GC APTIMA/62640, HIV-1/2 Agn/ ... - Lab chlamydia DNA probe NOT DETECTED NOT DETECTED Lab Report: HEPATITIS B S AG W/, Chlamyd ia/GC APTIMA/18946, HIV-1/2 Agn/ ... - Microbiology Neisseria gonorrhoeae DNA probe NOT DETECTED NO T DETECTED Lab Report: HEPATITIS B S AG W/, Chlamyd ia/GC APTIMA/68284, HIV-1/2 Agn/ ... - Serology rapid plasma reagin antibody titer NON-REACTIVE NON-REACTIVE Office Procedure: Consult Colposcopy - C hemistry human chorionic gonadotropin , urine, qualitative (urine test) neg Encounters Code Encounter Date Provider Facility CPT-13215 Level 3 Est. 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 CPT-66063 Level 3 Est. Patient 16:51:44 CDT Amandeep hill DO [facility] CPT-85429 Level 3 Est. Patient 15:10:02 CDT Daniel Nguyễn MD [facility] CPT-09093 Level 2 New Patient 16:16:35 CDT Tito moore MD [facility] CPT-03660 Level 3 Est. Patient 18:15:55 MECHANICAL DESIGN ENGINEER FACILITIES Amandeep hill [facility] CPT-80045 Level 3 Est. Patient 19:59:16 CDT Amandeep hill [facility] Procedures Code Procedure Name Date Entry Date Standard Desc ription CPT-25801 Wet Prep/CEM - LAB USE ONLY 11:16:10 CDT 20 27/08/24 CPT-27746 [place] of cervix w bx ECC 10:13:06 CDT CPT-OV Office Visit 10:13:06 CDT
--- OUTSIDE RECORDS SUMMARY | 2020-05-13 21:02 | XMS REPORT | Clinical Summary ---
Author Author Admin, Isadora Graham Organization [facility] Address Unknown Phone Unavailable Allergies, Adverse [...] Active Ilir Burkett MD Plantar fascial fibromatosis APHTHOUS ULCERS ICD-528.2 Inactive Tito Boudreaux MD ACUTE PHARYNGITIS ICD-462 Inactive Tito moore MD Medication List Medication Instructions Start Date Stop Date Generic Name NDC Status Provider Patient Instruction IBUPROFEN 600 MG TABS 1 three times a day as needed for pain 06/04 IBUPROFEN [id number] Active Tito Burkett MD Active AMOXICILLIN 500 MG TABS 2 tabs twice a day for 10 days AMOXICILLIN 76857156204 No Longer Active Tito Burkett MD Activ e PREDNISONE 20 MG TABS 2 daily for 3 days then 1 daily for 3 days PREDNISONE 73246690566 No Longer Active Tito Burkett MD Active FLUTICASONE PROPIONATE 50 MCG/ACT SUSP 1 to 2 sprays e ach nostril daily for allergies FLUTICASONE PROPIONATE 43993389262 Active R kennedy Burkett MD Active FLUTICASONE PROPIONATE 50 MCG/ACT SUSP 1 to 2 sprays e ach nostril daily for allergies FLUTICASONE PROPIONATE 28945871432 No Lo nger Active Malia Bright MD Active PREDNISONE 20 MG TABS 2 daily for 3 days then 1 daily for 3 days PREDNISONE 05475598321 No Longer Active Amandeep Castillo DO Act ce PREDNISONE 20 MG TAB 2 tabs daily for 3 days, 1 t ab daily for 3 days, 1/2 tab daily for 2 days PREDNISONE 57015355784 No Longer Active Daniel Nguyễn MD Active CEFDINIR 300 MG CAPS by mouth twice a day CEFDI LANEY 28731930979 No Longer Active Amandeep Castillo DO Active TRIAMCINOLONE ACETONIDE 0.1 % CREA apply q 8 hours sparingly to itchy area's TRIAMCINOLONE ACETONIDE 01318207894 No Longer Active Tito Burkett MD Active TRIAMCINOLONE ACETONIDE 0.1 % CREA apply q 8 hours sparingly to itchy area's TRIAMCINOLONE ACETONIDE 0.1 % CREA 9706600 TRIAMCINOLONE ACETONIDE Inactive PREDNISONE 20 MG TABS 2 daily for 3 days then 1 daily for 3 days PREDNISONE 20 MG TABS 870772 PREDNISONE Inactive FLUTICASONE PROPIONATE 50 MCG/ACT SUSP 1 to 2 sprays e ach nostril daily for allergies FLUTICASONE PROPIONATE 50 MCG/ACT SUSP 17 60123 FLUTICASONE PROPIONATE Inactive PREDNISONE 20 MG TABS 2 daily for 3 days then 1 daily for 3 days PREDNISONE 20 MG TABS 515761 PREDNISONE Inactive AMOXICILLIN 500 MG TABS 2 tabs twice a day for 10 days AMOXICILLIN 500 MG TABS 605854 AMOXICILLIN Inactive CEFDINIR 300 MG CAPS by mouth twice a day CEFDINIR 300 MG CAPS 664550 CEFDINIR Inactive PREDNISONE 20 MG TAB 2 tabs daily for 3 days, 1 t ab daily for 3 days, 1/2 tab daily for 2 days PREDNISONE 20 MG TAB 411795 PREDNISON E Inactive Vital Signs Date Name [...] HEPATITIS B S AG W/, Chlamyd ia/GC APTIMA/39819, HIV-1/2 Agn/ ... - Chemistry rapid plasma reagin antibody titer NON-REACTIVE NON-REACTIVE hepatitis B surface antigen NON-REACTIVE NON-RE ACTIVE Lab Report: HEPATITIS B S AG W/, Chlamyd ia/GC APTIMA/93672, HIV-1/2 Agn/ ... - Lab chlamydia DNA probe NOT DETECTED NOT DETECTED Lab Report: HEPATITIS B S AG W/, Chlamyd ia/GC APTIMA/03200, HIV-1/2 Agn/ ... - Microbiology Neisseria gonorrhoeae DNA probe NOT DETECTED NO T DETECTED Office Procedure: Consult Colposcopy - C hemistry human chorionic gonadotropin , urine, qualitative (urine test) neg Encounters Code Encounter Date Provider Facility CPT-52053 Level 3 Est. Patient 15:42:35 CDT Tito Burkett MD [facility] CPT-41571 Level 3 Est. 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 Patient 16:51:44 CDT Amandeep hill [facility] CPT-74378 Level 3 Est. Patient 15:10:02 CDT Daniel Nguyễn MD [facility] CPT-33806 Level 2 New Patient 16:16:35 CDT Tito moore MD [facility] CPT-38939 Level 3 Est. Patient 18:15:55 ELEMENTARY SCHOOL PRINCIPAL Amandeep hill [facility] CPT-83418 Level 3 Est. Patient 19:59:16 CDT Amandeep hill [facility] Procedures Code Procedure Name Date Entry Date Standard Desc ription CPT-59907 Wet Prep/CEM - LAB USE ONLY 11:16:10 CDT 20 27/08/24 CPT-48548 [place] of cervix w bx ECC 10:13:06 CDT CPT-OV Office Visit 10:13:06 CDT
--- OUTSIDE RECORDS SUMMARY | 2020-05-13 21:02 | XMS REPORT | Clinical Summary ---
Author Author Admin, Isadora Graham Organization [facility] Address Unknown Phone Unavailable Allergies, Adverse Reactions, [...] as needed for pain 201 05/18/24 IBUPROFEN 75310746202 No Longer Active Malia Bright MD A ctive AMOXICILLIN 500 MG TABS 2 tabs twice a day for 10 days AMOXICILLIN 26874501140 No Longer Active Tito Burkett MD Activ e PREDNISONE 20 MG TABS 2 daily for 3 days then 1 daily for 3 days PREDNISONE 31835663351 No Longer Active Tito Burkett MD Active FLUTICASONE PROPIONATE 50 MCG/ACT SUSP 1 to 2 sprays e ach nostril daily for allergies FLUTICASONE PROPIONATE 58367296466 Active R kennedy Burkett MD Active FLUTICASONE PROPIONATE 50 MCG/ACT SUSP 1 to 2 sprays e ach nostril daily for allergies FLUTICASONE PROPIONATE 28453730440 No Lo nger Active Malia Bright MD Active PREDNISONE 20 MG TABS 2 daily for 3 days then 1 daily for 3 days PREDNISONE 11052088937 No Longer Active Amandeep Castillo DO Act ce PREDNISONE 20 MG TAB 2 tabs daily for 3 days, 1 t ab daily for 3 days, 1/2 tab daily for 2 days PREDNISONE 37882578206 No Longer Active Daniel Nguyễn MD Active CEFDINIR 300 MG CAPS by mouth twice a day CEFDI LANEY 07816264898 No Longer Active Amandeep Castillo DO Active TRIAMCINOLONE ACETONIDE 0.1 % CREA apply q 8 hours sparingly to itchy area's TRIAMCINOLONE ACETONIDE 10973462551 No Longer Active Tito Burkett MD Active TRIAMCINOLONE ACETONIDE 0.1 % CREA apply q 8 hours sparingly to itchy area's TRIAMCINOLONE ACETONIDE 0.1 % CREA 1594403 TRIAMCINOLONE ACETONIDE Inactive PREDNISONE 20 MG TABS 2 daily for 3 days then 1 daily for 3 days PREDNISONE 20 MG TABS 905488 PREDNISONE Inactive FLUTICASONE PROPIONATE 50 MCG/ACT SUSP 1 to 2 sprays e ach nostril daily for allergies FLUTICASONE PROPIONATE 50 MCG/ACT SUSP 17 99043 FLUTICASONE PROPIONATE Inactive PREDNISONE 20 MG TABS 2 daily for 3 days then 1 daily for 3 days PREDNISONE 20 MG TABS 435443 PREDNISONE Inactive AMOXICILLIN 500 MG TABS 2 tabs twice a day for 10 days AMOXICILLIN 500 MG TABS 753448 AMOXICILLIN Inactive IBUPROFEN 600 MG TABS 1 three times a day as needed for pain 201 05/18/24 IBUPROFEN 600 MG TABS 587548 IBUPROFEN Inactive CEFDINIR 300 MG CAPS by mouth twice a day CEFDINIR 300 MG CAPS 231762 CEFDINIR Inactive PREDNISONE 20 MG TAB 2 tabs daily for 3 days, 1 t ab daily for 3 days, 1/2 tab daily for 2 days PREDNISONE 20 MG TAB 334014 PREDNISON E Inactive Vital Signs Date Name [...] (L) - Chemistry sodium, serum 138 mmol/L 367-988 9453/09/06 carbon dioxide, venous blood 21.9 mmol/L 21.0-32 [...] 348 10^3/MM^3 10*3/mm3 142-424 Lab Report: Chlamydia/GC APTIMA/74279 - Lab chlamydia DNA probe NOT DETECTED NOT DETECTED Lab Report: Chlamydia/GC APTIMA/27897 - Microbiology Neisseria gonorrhoeae DNA probe NOT DETECTED NO T DETECTED Lab Report: HEPATITIS B S AG W/, Chlamyd ia/GC APTIMA/89864, HIV-1/2 Agn/ ... - Chemistry hepatitis B surface antigen NON-REACTIVE NON-RE ACTIVE rapid plasma reagin antibody titer NON-REACTIVE NON-REACTIVE Lab Report: HEPATITIS B S AG W/, Chlamyd ia/GC APTIMA/75938, HIV-1/2 Agn/ ... - Lab chlamydia DNA probe NOT DETECTED NOT DETECTED Lab Report: HEPATITIS B S AG W/, Chlamyd ia/GC APTIMA/16493, HIV-1/2 Agn/ ... - Microbiology Neisseria gonorrhoeae DNA probe NOT DETECTED NO T DETECTED Office Procedure: Consult Colposcopy - C hemistry human chorionic gonadotropin , urine, qualitative (urine test) neg Office Visit: Irregular bleeding - Chemi stry human chorionic gonadotropin , urine, qualitative (urine test) Negative Encounters Code Encounter Date Provider Facility CPT-77564 Level 4 Est. Patient 09:59:10 CDT Malia mckeon MD [facility] CPT-67576 Level 3 Est. Patient 15:42:35 CDT Tito Burkett MD [facility] CPT-97138 Level 3 Est. 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 Patient 16:51:44 CDT Amandeep hill [facility] CPT-69221 Level 3 Est. Patient 15:10:02 CDT Daniel Nguyễn MD [facility] CPT-42866 Level 2 New Patient 16:16:35 CDT Tito moore MD [facility] CPT-79703 Level 3 Est. Patient 18:15:55 PEDIATRIC MEDICAL ASSISTANT Amandeep hill [facility] CPT-18141 Level 3 Est. Patient 19:59:16 CDT Amandeep hill [facility] Procedures Code Procedure Name Date Entry Date Standard Desc ription [facility]PT-64256 [facility] - CARLY ONLY 10:08:25 CDT 07/10 CPT-05805 Wet Prep/CEM - LAB USE ONLY 11:16:10 CDT 20 27/08/24 CPT-40370 [place] of cervix w bx ECC 10:13:06 CDT CPT-OV Office Visit 10:13:06 CDT
--- OUTSIDE RECORDS SUMMARY | 2020-05-13 21:02 | XMS REPORT | Clinical Summary ---
Author Author Admin, Isadora Graham Organization [facility] Address Unknown Phone Unavailable Allergies, Adverse [...] test positive Std screening V74.5 Active Malia Birght MD Screening examination for venereal disease Sinusitis [...] as needed for pain 201 05/18/24 IBUPROFEN 76421933315 No Longer Active Malia Bright MD A ctive AMOXICILLIN 500 MG TABS 2 tabs twice a day for 10 days AMOXICILLIN 43360672706 No Longer Active Tito Burkett MD Activ e PREDNISONE 20 MG TABS 2 daily for 3 days then 1 daily for 3 days PREDNISONE 31608994515 No Longer Active Tito Burkett MD Active FLUTICASONE PROPIONATE 50 MCG/ACT SUSP 1 to 2 sprays e ach nostril daily for allergies FLUTICASONE PROPIONATE 66200648579 Active R kennedy Burkett MD Active FLUTICASONE PROPIONATE 50 MCG/ACT SUSP 1 to 2 sprays e ach nostril daily for allergies FLUTICASONE PROPIONATE 25499342878 No Lo nger Active Malia Bright MD Active PREDNISONE 20 MG TABS 2 daily for 3 days then 1 daily for 3 days PREDNISONE 29805953142 No Longer Active Amandeep Castillo DO Act ce PREDNISONE 20 MG TAB 2 tabs daily for 3 days, 1 t ab daily for 3 days, 1/2 tab daily for 2 days PREDNISONE 89825210249 No Longer Active Daniel Nguyễn MD Active CEFDINIR 300 MG CAPS by mouth twice a day CEFDI LANEY 62861429350 No Longer Active Amandeep Castillo DO Active TRIAMCINOLONE ACETONIDE 0.1 % CREA apply q 8 hours sparingly to itchy area's TRIAMCINOLONE ACETONIDE 52316310219 No Longer Active Tito Burkett MD Active TRIAMCINOLONE ACETONIDE 0.1 % CREA apply q 8 hours sparingly to itchy area's TRIAMCINOLONE ACETONIDE 0.1 % CREA 8583690 TRIAMCINOLONE ACETONIDE Inactive PREDNISONE 20 MG TABS 2 daily for 3 days then 1 daily for 3 days PREDNISONE 20 MG TABS 845334 PREDNISONE Inactive FLUTICASONE PROPIONATE 50 MCG/ACT SUSP 1 to 2 sprays e ach nostril daily for allergies FLUTICASONE PROPIONATE 50 MCG/ACT SUSP 17 31761 FLUTICASONE PROPIONATE Inactive PREDNISONE 20 MG TABS 2 daily for 3 days then 1 daily for 3 days PREDNISONE 20 MG TABS 828404 PREDNISONE Inactive AMOXICILLIN 500 MG TABS 2 tabs twice a day for 10 days AMOXICILLIN 500 MG TABS 522398 AMOXICILLIN Inactive IBUPROFEN 600 MG TABS 1 three times a day as needed for pain 201 05/18/24 IBUPROFEN 600 MG TABS 364407 IBUPROFEN Inactive CEFDINIR 300 MG CAPS by mouth twice a day CEFDINIR 300 MG CAPS 911006 CEFDINIR Inactive PREDNISONE 20 MG TAB 2 tabs daily for 3 days, 1 t ab daily for 3 days, 1/2 tab daily for 2 days PREDNISONE 20 MG TAB 960586 PREDNISON E Inactive Vital Signs Date Name [...] HEPATITIS B S AG W/, Chlamyd ia/GC APTIMA/51923, HIV-1/2 Agn/ ... - Chemistry hepatitis B surface antigen NON-REACTIVE NON-RE ACTIVE rapid plasma reagin antibody titer NON-REACTIVE NON-REACTIVE Lab Report: HEPATITIS B S AG W/, Chlamyd ia/GC APTIMA/34605, HIV-1/2 Agn/ ... - Lab chlamydia DNA probe NOT DETECTED NOT DETECTED Lab Report: HEPATITIS B S AG W/, Chlamyd ia/GC APTIMA/77171, HIV-1/2 Agn/ ... - Microbiology Neisseria gonorrhoeae DNA probe NOT DETECTED NO T DETECTED Office Procedure: Consult Colposcopy - C hemistry human chorionic gonadotropin , urine, qualitative (urine test) neg Office Visit: Irregular bleeding - Chemi stry human chorionic gonadotropin , urine, qualitative (urine test) Negative Encounters Code Encounter Date Provider Facility CPT-62455 Level 4 Est. Patient 09:59:10 CDT Malia mckeon MD [facility] CPT-14662 Level 3 Est. Patient 15:42:35 CDT Tito Burkett MD [facility] CPT-88482 Level 3 Est. 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 Patient 16:51:44 CDT Amandeep hill [facility] CPT-20915 Level 3 Est. Patient 15:10:02 CDT Daniel Nguyễn MD [facility] CPT-98349 Level 2 New Patient 16:16:35 CDT Tito moore MD [facility] CPT-38121 Level 3 Est. Patient 18:15:55 LABORATORY GENETICIST Amandeep hill [facility] CPT-36015 Level 3 Est. Patient 19:59:16 CDT Amandeep hill [facility] Procedures Code Procedure Name Date Entry Date Standard Desc ription CPT-81645 [facility] Urine - CARLY ONLY 10:08:25 CDT 07/10 CPT-57653 Wet Prep/CEM - LAB USE ONLY 11:16:10 CDT 20 27/08/24 CPT-08570 [place] of cervix w bx ECC 10:13:06 CDT CPT-OV Office Visit 10:13:06 CDT
--- OUTSIDE RECORDS SUMMARY | 2020-05-13 21:02 | XMS REPORT | Clinical Summary ---
Author Author Admin, Isadora Graham Organization [facility] Address Unknown Phone Unavailable Allergies, Adverse Reactions, [...] ach nostril daily for allergies FLUTICASONE PROPIONATE [id number] Active R kennedy Burkett MD Active PREDNISONE 20 MG TABS 2 daily for 3 days then 1 daily for 3 days 27/09/25 PREDNISONE 83191321296 Active Tito Burkett MD Active AMOXICILLIN 500 MG TABS 2 tabs twice a day for 10 days AMOXICILLIN 64397479986 Active Tito Burkett MD Active FLUTICASONE PROPIONATE 50 MCG/ACT SUSP 1 to 2 sprays e ach nostril daily for allergies FLUTICASONE PROPIONATE 29192264920 No Lo nger Active Malia Bright MD Active PREDNISONE 20 MG TABS 2 daily for 3 days then 1 daily for 3 days PREDNISONE 39686309268 No Longer Active Amandeep Castillo DO Act ce PREDNISONE 20 MG TAB 2 tabs daily for 3 days, 1 t ab daily for 3 days, 1/2 tab daily for 2 days PREDNISONE 83119446026 No Longer Active Daniel Nguyễn MD Active CEFDINIR 300 MG CAPS by mouth twice a day CEFDI LANEY 91540217963 No Longer Active Amandeep Castillo DO Active TRIAMCINOLONE ACETONIDE 0.1 % CREA apply q 8 hours sparingly to itchy area's TRIAMCINOLONE ACETONIDE 16930593752 No Longer Active Tito Burkett MD Active TRIAMCINOLONE ACETONIDE 0.1 % CREA apply q 8 hours sparingly to itchy area's TRIAMCINOLONE ACETONIDE 0.1 % CREA 6809900 TRIAMCINOLONE ACETONIDE Inactive PREDNISONE 20 MG TABS 2 daily for 3 days then 1 daily for 3 days PREDNISONE 20 MG TABS 485741 PREDNISONE Inactive FLUTICASONE PROPIONATE 50 MCG/ACT SUSP 1 to 2 sprays e ach nostril daily for allergies FLUTICASONE PROPIONATE 50 MCG/ACT SUSP 17 94685 FLUTICASONE PROPIONATE Inactive CEFDINIR 300 MG CAPS by mouth twice a day CEFDINIR 300 MG CAPS 621734 CEFDINIR Inactive PREDNISONE 20 MG TAB 2 tabs daily for 3 days, 1 t ab daily for 3 days, 1/2 tab daily for 2 days PREDNISONE 20 MG TAB 829624 PREDNISON E Inactive Vital Signs Date Name [...] - 3141-9 264.4 [lb_av] Weigh t Measured Diagnostic Results Date Name Value Unit Range Description Lab Report: HEPATITIS B S AG W/, Chlamyd ia/GC APTIMA/50619, HIV-1/2 Agn/ ... - Chemistry hepatitis B surface antigen NON-REACTIVE NON-RE ACTIVE rapid plasma reagin antibody titer NON-REACTIVE NON-REACTIVE Lab Report: HEPATITIS B S AG W/, Chlamyd ia/GC APTIMA/42728, HIV-1/2 Agn/ ... - Lab chlamydia DNA probe NOT DETECTED NOT DETECTED Lab Report: HEPATITIS B S AG W/, Chlamyd ia/GC APTIMA/69158, HIV-1/2 Agn/ ... - Microbiology Neisseria gonorrhoeae DNA probe NOT DETECTED NO T DETECTED Office Procedure: Consult Colposcopy - C hemistry human chorionic gonadotropin , urine, qualitative (urine test) neg Encounters Code Encounter Date Provider Facility CPT-67553 Level 3 Est. 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 Patient 16:51:44 CDT Amandeep hill [facility] CPT-74595 Level 3 Est. Patient 15:10:02 CDT Daniel Nguyễn MD [facility] CPT-57281 Level 2 New Patient 16:16:35 CDT Tito moore MD [facility] CPT-52526 Level 3 Est. Patient 18:15:55 PIERCER OPERATOR Amandeep hill [facility] CPT-95349 Level 3 Est. Patient 19:59:16 CDT Amandeep hill [facility] Procedures Code Procedure Name Date Entry Date Standard Desc ription CPT-18929 Wet Prep/CEM - LAB USE ONLY 11:16:10 CDT 20 27/08/24 CPT-04335 [place] of cervix w bx ECC 10:13:06 CDT CPT-OV Office Visit 10:13:06 CDT
--- OUTSIDE RECORDS SUMMARY | 2020-05-13 21:02 | XMS REPORT | Clinical Summary ---
[...] ach nostril daily for allergies FLUTICASONE PROPIONATE 83621346370 Active Magan Burkett MD Active PREDNISONE 20 MG TABS 2 daily for 3 days then 1 daily for 3 days 20 25/02/05 PREDNISONE 82569744320 Active Tito Burkett MD Active TRIAMCINOLONE ACETONIDE 0.1 % CREA apply q 8 hours sparingly to itchy area's TRIAMCINOLONE ACETONIDE 41545629830 No Longer Active Tito Burkett MD Active TRIAMCINOLONE ACETONIDE 0.1 % CREA apply q 8 hours sparingly to itchy area's TRIAMCINOLONE ACETONIDE 0.1 % CREA 8136901 TRIAMCINOLONE ACETONIDE Inactive Vital Signs Date Name [...] Measured Encounters Code Encounter Date Provider Facility CPT-45102 Level 2 New Patient 16:16:35 CDT Tito moore MD [facility] CPT-07025 Level 3 Est. 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 Patient 19:59:16 CDT Amandeep hill [facility]
--- OUTSIDE RECORDS SUMMARY | 2020-05-13 21:02 | XMS REPORT | Clinical Summary ---
Author Author Admin, Isadora Graham Organization [facility] Address Unknown Phone Unavailable Allergies, Adverse Reactions, [...] ach nostril daily for allergies FLUTICASONE PROPIONATE 13250953199 Active R kennedy Burkett MD Active PREDNISONE 20 MG TABS 2 daily for 3 days then 1 daily for 3 days 27/09/25 PREDNISONE 59412770136 Active Tito Burkett MD Active AMOXICILLIN 500 MG TABS 2 tabs twice a day for 10 days AMOXICILLIN 64262887452 Active Tito Burkett MD Active FLUTICASONE PROPIONATE 50 MCG/ACT SUSP 1 to 2 sprays e ach nostril daily for allergies FLUTICASONE PROPIONATE 74142424231 No Lo nger Active Malia Bright MD Active PREDNISONE 20 MG TABS 2 daily for 3 days then 1 daily for 3 days PREDNISONE 73119832193 No Longer Active Amandeep Castillo DO Act ce PREDNISONE 20 MG TAB 2 tabs daily for 3 days, 1 t ab daily for 3 days, 1/2 tab daily for 2 days PREDNISONE 24967636237 No Longer Active Daniel Nguyễn MD Active CEFDINIR 300 MG CAPS by mouth twice a day CEFDI LANEY 93568461991 No Longer Active Amandeep Castillo DO Active TRIAMCINOLONE ACETONIDE 0.1 % CREA apply q 8 hours sparingly to itchy area's TRIAMCINOLONE ACETONIDE 32672021004 No Longer Active Tito Burkett MD Active TRIAMCINOLONE ACETONIDE 0.1 % CREA apply q 8 hours sparingly to itchy area's TRIAMCINOLONE ACETONIDE 0.1 % CREA 9659736 TRIAMCINOLONE ACETONIDE Inactive PREDNISONE 20 MG TABS 2 daily for 3 days then 1 daily for 3 days PREDNISONE 20 MG TABS 244685 PREDNISONE Inactive FLUTICASONE PROPIONATE 50 MCG/ACT SUSP 1 to 2 sprays e ach nostril daily for allergies FLUTICASONE PROPIONATE 50 MCG/ACT SUSP 17 24350 FLUTICASONE PROPIONATE Inactive CEFDINIR 300 MG CAPS by mouth twice a day CEFDINIR 300 MG CAPS 787857 CEFDINIR Inactive PREDNISONE 20 MG TAB 2 tabs daily for 3 days, 1 t ab daily for 3 days, 1/2 tab daily for 2 days PREDNISONE 20 MG TAB 879847 PREDNISON E Inactive Vital Signs Date Name [...] HEPATITIS B S AG W/, Chlamyd ia/GC APTIMA/97691, HIV-1/2 Agn/ ... - Chemistry hepatitis B surface antigen NON-REACTIVE NON-RE ACTIVE Lab Report: HEPATITIS B S AG W/, Chlamyd ia/GC APTIMA/04444, HIV-1/2 Agn/ ... - Lab chlamydia DNA probe NOT DETECTED NOT DETECTED Lab Report: HEPATITIS B S AG W/, Chlamyd ia/GC APTIMA/12947, HIV-1/2 Agn/ ... - Microbiology Neisseria gonorrhoeae DNA probe NOT DETECTED NO T DETECTED Lab Report: HEPATITIS B S AG W/, Chlamyd ia/GC APTIMA/23389, HIV-1/2 Agn/ ... - Serology rapid plasma reagin antibody titer NON-REACTIVE NON-REACTIVE Office Procedure: Consult Colposcopy - C hemistry human chorionic gonadotropin , urine, qualitative (urine test) neg Encounters Code Encounter Date Provider Facility CPT-63590 Level 3 Est. 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 Patient 16:51:44 CDT Amandeep hill DO [facility] CPT-73461 Level 3 Est. Patient 15:10:02 CDT Daniel Nguyễn MD [facility] CPT-54577 Level 2 New Patient 16:16:35 CDT Tito moore MD [facility] CPT-26858 Level 3 Est. Patient 18:15:55 BEDSPREAD CUTTER Amandeep hill [facility] CPT-39286 Level 3 Est. Patient 19:59:16 CDT Amandeep hill [facility] Procedures Code Procedure Name Date Entry Date Standard Desc ription CPT-44883 Wet Prep/CEM - LAB USE ONLY 11:16:10 CDT 20 27/08/24 CPT-63296 [place] of cervix w bx ECC 10:13:06 CDT CPT-OV Office Visit 10:13:06 CDT
--- OUTSIDE RECORDS SUMMARY | 2020-05-13 21:02 | XMS REPORT | Clinical Summary ---
Author Author Admin, Isadora Graham Organization [facility] Address Unknown Phone Unavailable Allergies, Adverse Reactions, [...] day as needed for pain 06/04 IBUPROFEN 26006899531 Active Tito Burkett MD Active AMOXICILLIN 500 MG TABS 2 tabs twice a day for 10 days AMOXICILLIN 21185796858 No Longer Active Tito Burkett MD Activ e PREDNISONE 20 MG TABS 2 daily for 3 days then 1 daily for 3 days PREDNISONE 61011978796 No Longer Active Tito Burkett MD Active FLUTICASONE PROPIONATE 50 MCG/ACT SUSP 1 to 2 sprays e ach nostril daily for allergies FLUTICASONE PROPIONATE 01662247007 Active R kennedy Burkett MD Active FLUTICASONE PROPIONATE 50 MCG/ACT SUSP 1 to 2 sprays e ach nostril daily for allergies FLUTICASONE PROPIONATE 92019384442 No Lo nger Active Malia Bright MD Active PREDNISONE 20 MG TABS 2 daily for 3 days then 1 daily for 3 days PREDNISONE 65401164919 No Longer Active Amandeep Castillo DO Act ce PREDNISONE 20 MG TAB 2 tabs daily for 3 days, 1 t ab daily for 3 days, 1/2 tab daily for 2 days PREDNISONE 75226439649 No Longer Active Daniel Nguyễn MD Active CEFDINIR 300 MG CAPS by mouth twice a day CEFDI LANEY 62199996388 No Longer Active Amandeep Castillo DO Active TRIAMCINOLONE ACETONIDE 0.1 % CREA apply q 8 hours sparingly to itchy area's TRIAMCINOLONE ACETONIDE 22057805154 No Longer Active Tito Burkett MD Active TRIAMCINOLONE ACETONIDE 0.1 % CREA apply q 8 hours sparingly to itchy area's TRIAMCINOLONE ACETONIDE 0.1 % CREA 5661019 TRIAMCINOLONE ACETONIDE Inactive PREDNISONE 20 MG TABS 2 daily for 3 days then 1 daily for 3 days PREDNISONE 20 MG TABS 027215 PREDNISONE Inactive FLUTICASONE PROPIONATE 50 MCG/ACT SUSP 1 to 2 sprays e ach nostril daily for allergies FLUTICASONE PROPIONATE 50 MCG/ACT SUSP 17 65183 FLUTICASONE PROPIONATE Inactive PREDNISONE 20 MG TABS 2 daily for 3 days then 1 daily for 3 days PREDNISONE 20 MG TABS 776438 PREDNISONE Inactive AMOXICILLIN 500 MG TABS 2 tabs twice a day for 10 days AMOXICILLIN 500 MG TABS 233632 AMOXICILLIN Inactive CEFDINIR 300 MG CAPS by mouth twice a day CEFDINIR 300 MG CAPS 263977 CEFDINIR Inactive PREDNISONE 20 MG TAB 2 tabs daily for 3 days, 1 t ab daily for 3 days, 1/2 tab daily for 2 days PREDNISONE 20 MG TAB 130052 PREDNISON E Inactive Vital Signs Date Name [...] HEPATITIS B S AG W/, Chlamyd ia/GC APTIMA/40831, HIV-1/2 Agn/ ... - Chemistry hepatitis B surface antigen NON-REACTIVE NON-RE ACTIVE rapid plasma reagin antibody titer NON-REACTIVE NON-REACTIVE Lab Report: HEPATITIS B S AG W/, Chlamyd ia/GC APTIMA/57461, HIV-1/2 Agn/ ... - Lab chlamydia DNA probe NOT DETECTED NOT DETECTED Lab Report: HEPATITIS B S AG W/, Chlamyd ia/GC APTIMA/67415, HIV-1/2 Agn/ ... - Microbiology Neisseria gonorrhoeae DNA probe NOT DETECTED NO T DETECTED Office Procedure: Consult Colposcopy - C hemistry human chorionic gonadotropin , urine, qualitative (urine test) neg Encounters Code Encounter Date Provider Facility CPT-55068 Level 3 Est. Patient 15:42:35 CDT Tito uBrkett MD [facility] CPT-36223 Level 3 Est. 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 Patient 16:51:44 CDT Amandeep hill [facility] CPT-63637 Level 3 Est. Patient 15:10:02 CDT Daniel Nguyễn MD [facility] CPT-71147 Level 2 New Patient 16:16:35 CDT Tito moore MD [facility] CPT-37679 Level 3 Est. Patient 18:15:55 BALANCE RECESSER Amandeep hill [facility] CPT-21570 Level 3 Est. Patient 19:59:16 CDT Amandeep hill [facility] Procedures Code Procedure Name Date Entry Date Standard Desc ription CPT-61561 Wet Prep/CEM - LAB USE ONLY 11:16:10 CDT 20 27/08/24 CPT-14918 [place] of cervix w bx ECC 10:13:06 CDT CPT-OV Office Visit 10:13:06 CDT
--- OUTSIDE RECORDS SUMMARY | 2020-05-13 21:02 | XMS REPORT | Clinical Summary ---
Author Author Admin, Isadora Graham Organization [facility] Address Unknown Phone Unavailable Allergies, Adverse Reactions, [...] then 1 daily for 3 days PREDNISONE 66640218253 No Longer Active Amandeep Castillo DO Act ce PREDNISONE 20 MG TAB 2 tabs daily for 3 days, 1 t ab daily for 3 days, 1/2 tab daily for 2 days PREDNISONE 15229714637 No Longer Active Daniel Nguyễn MD Active CEFDINIR 300 MG CAPS by mouth twice a day CEFDI LANEY 49702703723 No Longer Active Amandeep Castillo DO Active FLUTICASONE PROPIONATE 50 MCG/ACT SUSP 1 to 2 sprays e ach nostril daily for allergies FLUTICASONE PROPIONATE 27262559733 Active R kennedy Burkett MD Active TRIAMCINOLONE ACETONIDE 0.1 % CREA apply q 8 hours sparingly to itchy area's TRIAMCINOLONE ACETONIDE 59675029906 No Longer Active Tito Burkett MD Active TRIAMCINOLONE ACETONIDE 0.1 % CREA apply q 8 hours sparingly to itchy area's TRIAMCINOLONE ACETONIDE 0.1 % CREA 7506708 TRIAMCINOLONE ACETONIDE Inactive PREDNISONE 20 MG TABS 2 daily for 3 days then 1 daily for 3 days PREDNISONE 20 MG TABS 250532 PREDNISONE Inactive CEFDINIR 300 MG CAPS by mouth twice a day CEFDINIR 300 MG CAPS 584419 CEFDINIR Inactive PREDNISONE 20 MG TAB 2 tabs daily for 3 days, 1 t ab daily for 3 days, 1/2 tab daily for 2 days PREDNISONE 20 MG TAB 604170 PREDNISON E Inactive Vital Signs Date Name [...] Measured Encounters Code Encounter Date Provider Facility CPT-26080 Level 3 Est. Patient 16:51:[address] [facility] CPT-76385 Level 3 Est. Patient 15:10:02 CDT Daniel Nguyễn MD [facility] CPT-30449 Level 2 New Patient 16:16:35 CDT Tito moore MD [facility] CPT-43268 Level 3 Est. 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 Patient 19:59:16 CDT Amandeep hill [facility]
--- OUTSIDE RECORDS SUMMARY | 2020-05-13 21:03 | XMS REPORT | Clinical Summary ---
Author Author Admin, Isadora Graham Organization [facility] Address Unknown Phone Unavailable Allergies, Adverse [...] test positive Std screening V74.5 Active Malia Brgiht MD Screening examination for venereal disease Sinusitis [...] ach nostril daily for allergies FLUTICASONE PROPIONATE 73278749076 Active R kennedy Burkett MD Active PREDNISONE 20 MG TABS 2 daily for 3 days then 1 daily for 3 days 27/09/25 PREDNISONE 01732551889 Active Tiot Burkett MD Active AMOXICILLIN 500 MG TABS 2 tabs twice a day for 10 days AMOXICILLIN 59493556550 Active Tito Burkett MD Active FLUTICASONE PROPIONATE 50 MCG/ACT SUSP 1 to 2 sprays e ach nostril daily for allergies FLUTICASONE PROPIONATE 10205224935 No Lo nger Active Malia Bright MD Active PREDNISONE 20 MG TABS 2 daily for 3 days then 1 daily for 3 days PREDNISONE 49652437930 No Longer Active Amandeep Castillo DO Act ce PREDNISONE 20 MG TAB 2 tabs daily for 3 days, 1 t ab daily for 3 days, 1/2 tab daily for 2 days PREDNISONE 58494395295 No Longer Active Daniel Nguyễn MD Active CEFDINIR 300 MG CAPS by mouth twice a day CEFDI LANEY 95225820062 No Longer Active Amandeep Castillo DO Active TRIAMCINOLONE ACETONIDE 0.1 % CREA apply q 8 hours sparingly to itchy area's TRIAMCINOLONE ACETONIDE 92382391048 No Longer Active Tito Burkett MD Active TRIAMCINOLONE ACETONIDE 0.1 % CREA apply q 8 hours sparingly to itchy area's TRIAMCINOLONE ACETONIDE 0.1 % CREA 9334211 TRIAMCINOLONE ACETONIDE Inactive PREDNISONE 20 MG TABS 2 daily for 3 days then 1 daily for 3 days PREDNISONE 20 MG TABS 047015 PREDNISONE Inactive FLUTICASONE PROPIONATE 50 MCG/ACT SUSP 1 to 2 sprays e ach nostril daily for allergies FLUTICASONE PROPIONATE 50 MCG/ACT SUSP 17 92175 FLUTICASONE PROPIONATE Inactive CEFDINIR 300 MG CAPS by mouth twice a day CEFDINIR 300 MG CAPS 515140 CEFDINIR Inactive PREDNISONE 20 MG TAB 2 tabs daily for 3 days, 1 t ab daily for 3 days, 1/2 tab daily for 2 days PREDNISONE 20 MG TAB 906781 PREDNISON E Inactive Vital Signs Date Name [...] HEPATITIS B S AG W/, Chlamyd ia/GC APTIMA/34035, HIV-1/2 Agn/ ... - Chemistry hepatitis B surface antigen NON-REACTIVE NON-RE ACTIVE rapid plasma reagin antibody titer NON-REACTIVE NON-REACTIVE Lab Report: HEPATITIS B S AG W/, Chlamyd ia/GC APTIMA/14101, HIV-1/2 Agn/ ... - Lab chlamydia DNA probe NOT DETECTED NOT DETECTED Lab Report: HEPATITIS B S AG W/, Chlamyd ia/GC APTIMA/67841, HIV-1/2 Agn/ ... - Microbiology Neisseria gonorrhoeae DNA probe NOT DETECTED NO T DETECTED Office Procedure: Consult Colposcopy - C hemistry human chorionic gonadotropin , urine, qualitative (urine test) neg Encounters Code Encounter Date Provider Facility CPT-86014 Level 3 Est. 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 Patient 16:51:44 CDT Amandeep hill DO [facility] CPT-99484 Level 3 Est. Patient 15:10:02 CDT Daniel Nguyễn MD [facility] CPT-56176 Level 2 New Patient 16:16:35 CDT Tito moore MD [facility] CPT-86848 Level 3 Est. 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 Patient 19:59:16 CDT Amandeep hill [facility] Procedures Code Procedure Name Date Entry Date Standard Desc ription CPT-06711 Wet Prep/CEM - LAB USE ONLY 11:16:10 CDT 20 27/08/24 CPT-31185 [place] of cervix w bx ECC 10:13:06 CDT CPT-OV Office Visit 10:13:06 CDT
--- OUTSIDE RECORDS SUMMARY | 2020-05-13 21:03 | XMS REPORT | Clinical Summary ---
Author Author Admin, Isadora Graham Organization [facility] Address Unknown Phone Unavailable Allergies, Adverse Reactions, [...] as needed for pain 201 05/18/24 IBUPROFEN 24204336199 No Longer Active Malia Bright MD A ctive AMOXICILLIN 500 MG TABS 2 tabs twice a day for 10 days AMOXICILLIN 60361864883 No Longer Active Tito Burkett MD Activ e PREDNISONE 20 MG TABS 2 daily for 3 days then 1 daily for 3 days PREDNISONE 17971312863 No Longer Active Tito Burkett MD Active FLUTICASONE PROPIONATE 50 MCG/ACT SUSP 1 to 2 sprays e ach nostril daily for allergies FLUTICASONE PROPIONATE 88851536597 Active R kennedy Burkett MD Active FLUTICASONE PROPIONATE 50 MCG/ACT SUSP 1 to 2 sprays e ach nostril daily for allergies FLUTICASONE PROPIONATE 18133023416 No Lo nger Active Malia Bright MD Active PREDNISONE 20 MG TABS 2 daily for 3 days then 1 daily for 3 days PREDNISONE 00367749076 No Longer Active Amadneep Castillo DO Act ce PREDNISONE 20 MG TAB 2 tabs daily for 3 days, 1 t ab daily for 3 days, 1/2 tab daily for 2 days PREDNISONE 28569178286 No Longer Active Daniel Nguyễn MD Active CEFDINIR 300 MG CAPS by mouth twice a day CEFDI LANEY 08969256728 No Longer Active Amandeep Castillo DO Active TRIAMCINOLONE ACETONIDE 0.1 % CREA apply q 8 hours sparingly to itchy area's TRIAMCINOLONE ACETONIDE 84044336940 No Longer Active Tito Burkett MD Active TRIAMCINOLONE ACETONIDE 0.1 % CREA apply q 8 hours sparingly to itchy area's TRIAMCINOLONE ACETONIDE 0.1 % CREA 7700713 TRIAMCINOLONE ACETONIDE Inactive PREDNISONE 20 MG TABS 2 daily for 3 days then 1 daily for 3 days PREDNISONE 20 MG TABS 606577 PREDNISONE Inactive FLUTICASONE PROPIONATE 50 MCG/ACT SUSP 1 to 2 sprays e ach nostril daily for allergies FLUTICASONE PROPIONATE 50 MCG/ACT SUSP 17 84929 FLUTICASONE PROPIONATE Inactive PREDNISONE 20 MG TABS 2 daily for 3 days then 1 daily for 3 days PREDNISONE 20 MG TABS 314589 PREDNISONE Inactive AMOXICILLIN 500 MG TABS 2 tabs twice a day for 10 days AMOXICILLIN 500 MG TABS 312701 AMOXICILLIN Inactive IBUPROFEN 600 MG TABS 1 three times a day as needed for pain 201 05/18/24 IBUPROFEN 600 MG TABS 300645 IBUPROFEN Inactive CEFDINIR 300 MG CAPS by mouth twice a day CEFDINIR 300 MG CAPS 393924 CEFDINIR Inactive PREDNISONE 20 MG TAB 2 tabs daily for 3 days, 1 t ab daily for 3 days, 1/2 tab daily for 2 days PREDNISONE 20 MG TAB 589340 PREDNISON E Inactive Vital Signs Date Name [...] (L) - Chemistry sodium, serum 138 mmol/L 254-940 7353/09/06 carbon dioxide, venous blood 21.9 mmol/L 21.0-32 [...] 348 10^3/MM^3 10*3/mm3 142-424 Lab Report: Chlamydia/GC APTIMA/43606 - Lab chlamydia DNA probe NOT DETECTED NOT DETECTED Lab Report: Chlamydia/GC APTIMA/97281 - Microbiology Neisseria gonorrhoeae DNA probe NOT DETECTED NO T DETECTED Lab Report: HEPATITIS B S AG W/, Chlamyd ia/GC APTIMA/82145, HIV-1/2 Agn/ ... - Chemistry hepatitis B surface antigen NON-REACTIVE NON-RE ACTIVE rapid plasma reagin antibody titer NON-REACTIVE NON-REACTIVE Lab Report: HEPATITIS B S AG W/, Chlamyd ia/GC APTIMA/66496, HIV-1/2 Agn/ ... - Lab chlamydia DNA probe NOT DETECTED NOT DETECTED Lab Report: HEPATITIS B S AG W/, Chlamyd ia/GC APTIMA/34907, HIV-1/2 Agn/ ... - Microbiology Neisseria gonorrhoeae DNA probe NOT DETECTED NO T DETECTED Office Procedure: Consult Colposcopy - C hemistry human chorionic gonadotropin , urine, qualitative (urine test) neg Office Visit: Irregular bleeding - Chemi stry human chorionic gonadotropin , urine, qualitative (urine test) Negative Encounters Code Encounter Date Provider Facility CPT-85268 Level 4 Est. Patient 09:59:10 CDT Malia mckeon MD [facility] CPT-92216 Level 3 Est. Patient 15:42:35 CDT Tito Burkett MD [facility] CPT-02157 Level 3 Est. 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 Patient 16:51:44 CDT Amandeep hill [facility] CPT-54615 Level 3 Est. Patient 15:10:02 CDT Daniel Nguyễn MD [facility] CPT-94646 Level 2 New Patient 16:16:35 CDT Tito moore MD [facility] CPT-30070 Level 3 Est. Patient 18:15:55 VAMP THROATER Amandeep hill [facility] CPT-21743 Level 3 Est. Patient 19:59:16 CDT Amandeep hill [facility] Procedures Code Procedure Name Date Entry Date Standard Desc ription [facility] 10:08:25 CDT 07/10 CPT-56523 Wet Prep/CEM - LAB USE ONLY 11:16:10 CDT 20 27/08/24 CPT-35081 [place] of cervix w bx ECC 10:13:06 CDT CPT-OV Office Visit 10:13:06 CDT
--- OUTSIDE RECORDS SUMMARY | 2020-05-13 21:03 | XMS REPORT | Clinical Summary ---
Author Author Admin, Isadora Graham Organization [facility] Address Unknown Phone Unavailable [...] ach nostril daily for allergies FLUTICASONE PROPIONATE [id number] Active R kennedy Burkett MD Active PREDNISONE 20 MG TABS 2 daily for 3 days then 1 daily for 3 days 27/09/25 PREDNISONE 22624027413 Active Tito Burkett MD Active AMOXICILLIN 500 MG TABS 2 tabs twice a day for 10 days AMOXICILLIN 47591947666 Active Tito Burkett MD Active FLUTICASONE PROPIONATE 50 MCG/ACT SUSP 1 to 2 sprays e ach nostril daily for allergies FLUTICASONE PROPIONATE 70223292701 No Lo nger Active Malia Bright MD Active PREDNISONE 20 MG TABS 2 daily for 3 days then 1 daily for 3 days PREDNISONE 63973360071 No Longer Active Amandeep Castillo DO Act ce PREDNISONE 20 MG TAB 2 tabs daily for 3 days, 1 t ab daily for 3 days, 1/2 tab daily for 2 days PREDNISONE 41770720306 No Longer Active Daniel Nguyễn MD Active CEFDINIR 300 MG CAPS by mouth twice a day CEFDI LANEY 15690713885 No Longer Active Amandeep Castillo DO Active TRIAMCINOLONE ACETONIDE 0.1 % CREA apply q 8 hours sparingly to itchy area's TRIAMCINOLONE ACETONIDE 33963822524 No Longer Active Tito Burkett MD Active TRIAMCINOLONE ACETONIDE 0.1 % CREA apply q 8 hours sparingly to itchy area's TRIAMCINOLONE ACETONIDE 0.1 % CREA 6324777 TRIAMCINOLONE ACETONIDE Inactive PREDNISONE 20 MG TABS 2 daily for 3 days then 1 daily for 3 days PREDNISONE 20 MG TABS 520850 PREDNISONE Inactive FLUTICASONE PROPIONATE 50 MCG/ACT SUSP 1 to 2 sprays e ach nostril daily for allergies FLUTICASONE PROPIONATE 50 MCG/ACT SUSP 17 76154 FLUTICASONE PROPIONATE Inactive CEFDINIR 300 MG CAPS by mouth twice a day CEFDINIR 300 MG CAPS 421267 CEFDINIR Inactive PREDNISONE 20 MG TAB 2 tabs daily for 3 days, 1 t ab daily for 3 days, 1/2 tab daily for 2 days PREDNISONE 20 MG TAB 448585 PREDNISON E Inactive Vital Signs Date Name [...] HEPATITIS B S AG W/, Chlamyd ia/GC APTIMA/47983, HIV-1/2 Agn/ ... - Chemistry hepatitis B surface antigen NON-REACTIVE NON-RE ACTIVE rapid plasma reagin antibody titer NON-REACTIVE NON-REACTIVE Lab Report: HEPATITIS B S AG W/, Chlamyd ia/GC APTIMA/86793, HIV-1/2 Agn/ ... - Lab chlamydia DNA probe NOT DETECTED NOT DETECTED Lab Report: HEPATITIS B S AG W/, Chlamyd ia/GC APTIMA/25127, HIV-1/2 Agn/ ... - Microbiology Neisseria gonorrhoeae DNA probe NOT DETECTED NO T DETECTED Office Procedure: Consult Colposcopy - C hemistry human chorionic gonadotropin , urine, qualitative (urine test) neg Encounters Code Encounter Date Provider Facility CPT-46272 Level 3 Est. 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 Patient 16:51:44 CDT Amandeep hill DO [facility] CPT-91920 Level 3 Est. Patient 15:10:02 CDT Daniel Nguyễn MD [facility] CPT-55442 Level 2 New Patient 16:16:35 CDT Tito moore MD [facility] CPT-68304 Level 3 Est. Patient 18:15:55 SODA CLERK Amandeep hill [facility] CPT-75015 Level 3 Est. Patient 19:59:16 CDT Amandeep hill [facility] Procedures Code Procedure Name Date Entry Date Standard Desc ription CPT-63000 Wet Prep/CEM - LAB USE ONLY 11:16:10 CDT 20 27/08/24 CPT-42702 [place] of cervix w bx ECC 10:13:06 CDT CPT-OV Office Visit 10:13:06 CDT
--- OUTSIDE RECORDS SUMMARY | 2020-05-13 21:03 | XMS REPORT | Clinical Summary ---
Author Author Admin, Isadora Graham Organization [facility] Address Unknown Phone Unavailable Allergies, [...] Tito Boudreaux MD ACUTE PHARYNGITIS ICD-462 Inactive Ttio moore MD Medication List Medication Instructions Start Date Stop Date Generic Name NDC Status Provider Patient Instruction CEFDINIR 300 MG CAPS by mouth twice a day CEFDI LANEY 48195067006 Active Amandeep Castillo DO Active FLUTICASONE PROPIONATE 50 MCG/ACT SUSP 1 to 2 sprays e ach nostril daily for allergies FLUTICASONE PROPIONATE 91664494528 Active Magan Burkett MD Active PREDNISONE 20 MG TABS 2 daily for 3 days then 1 daily for 3 days 20 25/02/05 PREDNISONE 83466089716 Active Tito Burkett MD Active TRIAMCINOLONE ACETONIDE 0.1 % CREA apply q 8 hours sparingly to itchy area's TRIAMCINOLONE ACETONIDE 29788160925 No Longer Active Tito Burkett MD Active TRIAMCINOLONE ACETONIDE 0.1 % CREA apply q 8 hours sparingly to itchy area's TRIAMCINOLONE ACETONIDE 0.1 % CREA 9161942 TRIAMCINOLONE ACETONIDE Inactive Vital Signs Date Name [...] Measured Encounters Code Encounter Date Provider Facility CPT-11915 Level 2 New Patient 16:16:35 CDT Tito moore MD [facility] CPT-02149 Level 3 Est. 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 Patient 19:59:16 CDT Amandeep hill [facility]
--- OUTSIDE RECORDS SUMMARY | 2020-05-13 21:03 | XMS REPORT | Clinical Summary ---
Author Author Admin, Isadora Graham Organization [facility] Address Unknown Phone Unavailable Allergies, Adverse [...] ach nostril daily for allergies FLUTICASONE PROPIONATE 61295453941 Active R kennedy Burkett MD Active PREDNISONE 20 MG TABS 2 daily for 3 days then 1 daily for 3 days 27/09/25 PREDNISONE 81919908366 Active Tito Burkett MD Active AMOXICILLIN 500 MG TABS 2 tabs twice a day for 10 days AMOXICILLIN 64884589432 Active Tito Burkett MD Active FLUTICASONE PROPIONATE 50 MCG/ACT SUSP 1 to 2 sprays e ach nostril daily for allergies FLUTICASONE PROPIONATE 73650294679 No Lo nger Active Malia Bright MD Active PREDNISONE 20 MG TABS 2 daily for 3 days then 1 daily for 3 days PREDNISONE 47517898845 No Longer Active Amandeep Castillo DO Act ce PREDNISONE 20 MG TAB 2 tabs daily for 3 days, 1 t ab daily for 3 days, 1/2 tab daily for 2 days PREDNISONE 44865520256 No Longer Active Daniel Nguyễn MD Active CEFDINIR 300 MG CAPS by mouth twice a day CEFDI LANEY 65050866431 No Longer Active Amandeep Castillo DO Active TRIAMCINOLONE ACETONIDE 0.1 % CREA apply q 8 hours sparingly to itchy area's TRIAMCINOLONE ACETONIDE 14775846571 No Longer Active Tito Burkett MD Active TRIAMCINOLONE ACETONIDE 0.1 % CREA apply q 8 hours sparingly to itchy area's TRIAMCINOLONE ACETONIDE 0.1 % CREA 5873935 TRIAMCINOLONE ACETONIDE Inactive PREDNISONE 20 MG TABS 2 daily for 3 days then 1 daily for 3 days PREDNISONE 20 MG TABS 962290 PREDNISONE Inactive FLUTICASONE PROPIONATE 50 MCG/ACT SUSP 1 to 2 sprays e ach nostril daily for allergies FLUTICASONE PROPIONATE 50 MCG/ACT SUSP 17 59716 FLUTICASONE PROPIONATE Inactive CEFDINIR 300 MG CAPS by mouth twice a day CEFDINIR 300 MG CAPS 704279 CEFDINIR Inactive PREDNISONE 20 MG TAB 2 tabs daily for 3 days, 1 t ab daily for 3 days, 1/2 tab daily for 2 days PREDNISONE 20 MG TAB 229127 PREDNISON E Inactive Vital Signs Date Name [...] HEPATITIS B S AG W/, Chlamyd ia/GC APTIMA/58506, HIV-1/2 Agn/ ... - Chemistry hepatitis B surface antigen NON-REACTIVE NON-RE ACTIVE Lab Report: HEPATITIS B S AG W/, Chlamyd ia/GC APTIMA/08566, HIV-1/2 Agn/ ... - Lab chlamydia DNA probe NOT DETECTED NOT DETECTED Lab Report: HEPATITIS B S AG W/, Chlamyd ia/GC APTIMA/51317, HIV-1/2 Agn/ ... - Microbiology Neisseria gonorrhoeae DNA probe NOT DETECTED NO T DETECTED Lab Report: HEPATITIS B S AG W/, Chlamyd ia/GC APTIMA/08422, HIV-1/2 Agn/ ... - Serology rapid plasma reagin antibody titer NON-REACTIVE NON-REACTIVE Office Procedure: Consult Colposcopy - C hemistry human chorionic gonadotropin , urine, qualitative (urine test) neg Encounters Code Encounter Date Provider Facility CPT-18015 Level 3 Est. 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 Patient 16:51:44 CDT Amandeep hill DO [facility] CPT-05286 Level 3 Est. Patient 15:10:02 CDT Daniel Nguyễn MD [facility] CPT-18626 Level 2 New Patient 16:16:35 CDT Tito moore MD [facility] CPT-79855 Level 3 Est. 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 Patient 19:59:16 CDT Amandeep hill [facility] Procedures Code Procedure Name Date Entry Date Standard Desc ription CPT-32263 Wet Prep/CEM - LAB USE ONLY 11:16:10 CDT 20 27/08/24 CPT-23331 [place] of cervix w bx ECC 10:13:06 CDT CPT-OV Office Visit 10:13:06 CDT
--- OUTSIDE RECORDS SUMMARY | 2020-05-13 21:03 | XMS REPORT | Clinical Summary ---
Author Author Admin, Isadora Graham Organization [facility] Address Unknown Phone Unavailable Allergies, Adverse [...] as needed for pain 201 05/18/24 IBUPROFEN [id number] No Longer Active Malia Bright MD A ctive AMOXICILLIN 500 MG TABS 2 tabs twice a day for 10 days AMOXICILLIN 34936900787 No Longer Active Tito Burkett MD Activ e PREDNISONE 20 MG TABS 2 daily for 3 days then 1 daily for 3 days PREDNISONE 39636821517 No Longer Active Tito Burkett MD Active FLUTICASONE PROPIONATE 50 MCG/ACT SUSP 1 to 2 sprays e ach nostril daily for allergies FLUTICASONE PROPIONATE 64554482549 Active R kennedy Burkett MD Active FLUTICASONE PROPIONATE 50 MCG/ACT SUSP 1 to 2 sprays e ach nostril daily for allergies FLUTICASONE PROPIONATE 33328678641 No Lo nger Active Malia Bright MD Active PREDNISONE 20 MG TABS 2 daily for 3 days then 1 daily for 3 days PREDNISONE 67272678256 No Longer Active Amandeep Castillo DO Act ce PREDNISONE 20 MG TAB 2 tabs daily for 3 days, 1 t ab daily for 3 days, 1/2 tab daily for 2 days PREDNISONE 35557249250 No Longer Active Daniel Nguyễn MD Active CEFDINIR 300 MG CAPS by mouth twice a day CEFDI LANEY 99242846728 No Longer Active Amandeep Castillo DO Active TRIAMCINOLONE ACETONIDE 0.1 % CREA apply q 8 hours sparingly to itchy area's TRIAMCINOLONE ACETONIDE 30692803217 No Longer Active Tito Burkett MD Active TRIAMCINOLONE ACETONIDE 0.1 % CREA apply q 8 hours sparingly to itchy area's TRIAMCINOLONE ACETONIDE 0.1 % CREA 7367092 TRIAMCINOLONE ACETONIDE Inactive PREDNISONE 20 MG TABS 2 daily for 3 days then 1 daily for 3 days PREDNISONE 20 MG TABS 586988 PREDNISONE Inactive FLUTICASONE PROPIONATE 50 MCG/ACT SUSP 1 to 2 sprays e ach nostril daily for allergies FLUTICASONE PROPIONATE 50 MCG/ACT SUSP 17 67999 FLUTICASONE PROPIONATE Inactive PREDNISONE 20 MG TABS 2 daily for 3 days then 1 daily for 3 days PREDNISONE 20 MG TABS 851453 PREDNISONE Inactive AMOXICILLIN 500 MG TABS 2 tabs twice a day for 10 days AMOXICILLIN 500 MG TABS 364755 AMOXICILLIN Inactive IBUPROFEN 600 MG TABS 1 three times a day as needed for pain 201 05/18/24 IBUPROFEN 600 MG TABS 703573 IBUPROFEN Inactive CEFDINIR 300 MG CAPS by mouth twice a day CEFDINIR 300 MG CAPS 584576 CEFDINIR Inactive PREDNISONE 20 MG TAB 2 tabs daily for 3 days, 1 t ab daily for 3 days, 1/2 tab daily for 2 days PREDNISONE 20 MG TAB 123378 PREDNISON E Inactive Vital Signs Date Name [...] HEPATITIS B S AG W/, Chlamyd ia/GC APTIMA/29340, HIV-1/2 Agn/ ... - Chemistry hepatitis B surface antigen NON-REACTIVE NON-RE ACTIVE rapid plasma reagin antibody titer NON-REACTIVE NON-REACTIVE Lab Report: HEPATITIS B S AG W/, Chlamyd ia/GC APTIMA/02050, HIV-1/2 Agn/ ... - Lab chlamydia DNA probe NOT DETECTED NOT DETECTED Lab Report: HEPATITIS B S AG W/, Chlamyd ia/GC APTIMA/21305, HIV-1/2 Agn/ ... - Microbiology Neisseria gonorrhoeae DNA probe NOT DETECTED NO T DETECTED Office Procedure: Consult Colposcopy - C hemistry human chorionic gonadotropin , urine, qualitative (urine test) neg Office Visit: Irregular bleeding - Chemi stry human chorionic gonadotropin , urine, qualitative (urine test) Negative Encounters Code Encounter Date Provider Facility CPT-48388 Level 4 Est. Patient 09:59:10 CDT Malia mckeon MD [facility] CPT-20466 Level 3 Est. Patient 15:42:35 CDT Tito Burkett MD [facility] CPT-47844 Level 3 Est. 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 Patient 16:51:44 CDT Amandeep hill [facility] CPT-82533 Level 3 Est. Patient 15:10:02 CDT Daniel Nguyễn MD [facility] CPT-66145 Level 2 New Patient 16:16:35 CDT Tito moore MD [facility] CPT-11811 Level 3 Est. 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 Patient 19:59:16 CDT Amandeep hill [facility] Procedures Code Procedure Name Date Entry Date Standard Desc ription CPT-92093 [facility] Urine - CARLY ONLY 10:08:25 CDT 07/10 CPT-08558 Wet Prep/CEM - LAB USE ONLY 11:16:10 CDT 20 27/08/24 CPT-31575 [place] of cervix w bx ECC 10:13:06 CDT CPT-OV Office Visit 10:13:06 CDT
--- OUTSIDE RECORDS SUMMARY | 2020-05-13 21:03 | XMS REPORT | Clinical Summary ---
Author Author Admin, Isadora Graham Organization [facility] Address Unknown Phone Unavailable Allergies, [...] ach nostril daily for allergies FLUTICASONE PROPIONATE 63464003521 No nger Active Malia Bright MD Active PREDNISONE 20 MG TABS 2 daily for 3 days then 1 daily for 3 days PREDNISONE 21738018825 No Longer Active Amandeep Castillo DO Act ce PREDNISONE 20 MG TAB 2 tabs daily for 3 days, 1 t ab daily for 3 days, 1/2 tab daily for 2 days PREDNISONE 47737310916 No Longer Active Daniel Nguyễn MD Active CEFDINIR 300 MG CAPS by mouth twice a day CEFDI LANEY 16015827788 No Longer Active Amandeep Castillo DO Active TRIAMCINOLONE ACETONIDE 0.1 % CREA apply q 8 hours sparingly to itchy area's TRIAMCINOLONE ACETONIDE 80728439620 No Longer Active Tito Burkett MD Active TRIAMCINOLONE ACETONIDE 0.1 % CREA apply q 8 hours sparingly to itchy area's TRIAMCINOLONE ACETONIDE 0.1 % CREA 9558215 TRIAMCINOLONE ACETONIDE Inactive PREDNISONE 20 MG TABS 2 daily for 3 days then 1 daily for 3 days PREDNISONE 20 MG TABS 101987 PREDNISONE Inactive FLUTICASONE PROPIONATE 50 MCG/ACT SUSP 1 to 2 sprays e ach nostril daily for allergies FLUTICASONE PROPIONATE 50 MCG/ACT SUSP 17 65115 FLUTICASONE PROPIONATE Inactive CEFDINIR 300 MG CAPS by mouth twice a day CEFDINIR 300 MG CAPS 586542 CEFDINIR Inactive PREDNISONE 20 MG TAB 2 tabs daily for 3 days, 1 t ab daily for 3 days, 1/2 tab daily for 2 days PREDNISONE 20 MG TAB 232854 PREDNISON E Inactive Vital Signs Date Name [...] HEPATITIS B S AG W/, Chlamyd ia/GC APTIMA/60530, HIV-1/2 Agn/ ... - Chemistry hepatitis B surface antigen NON-REACTIVE NON-RE ACTIVE Lab Report: HEPATITIS B S AG W/, Chlamyd ia/GC APTIMA/36457, HIV-1/2 Agn/ ... - Lab chlamydia DNA probe NOT DETECTED NOT DETECTED Lab Report: HEPATITIS B S AG W/, Chlamyd ia/GC APTIMA/18128, HIV-1/2 Agn/ ... - Microbiology Neisseria gonorrhoeae DNA probe NOT DETECTED NO T DETECTED Lab Report: HEPATITIS B S AG W/, Chlamyd ia/GC APTIMA/40853, HIV-1/2 Agn/ ... - Serology rapid plasma reagin antibody titer NON-REACTIVE NON-REACTIVE Office Procedure: Consult Colposcopy - C hemistry human chorionic gonadotropin , urine, qualitative (urine test) neg Encounters Code Encounter Date Provider Facility CPT-78990 Level 3 Est. Patient 16:51:44 CDT Amandeep hill [facility] CPT-14224 Level 3 Est. Patient 15:10:02 CDT Daniel Nguyễn MD [facility] CPT-27372 Level 2 New Patient 16:16:35 CDT Tito moore MD [facility] CPT-76704 Level 3 Est. 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 Patient 19:59:16 CDT Amandeep hill [facility] Procedures Code Procedure Name Date Entry Date Standard Desc ription CPT-62619 Wet Prep/CEM - LAB USE ONLY 11:16:10 CDT 20 27/08/24 CPT-31364 [place] of cervix w bx ECC 10:13:06 CDT CPT-OV Office Visit 10:13:06 CDT
--- OUTSIDE RECORDS SUMMARY | 2020-05-13 21:03 | XMS REPORT | Clinical Summary ---
Author Author Admin, Isadora Graham Organization [facility] Address Unknown Phone Unavailable Allergies, Adverse [...] ach nostril daily for allergies FLUTICASONE PROPIONATE 42360654865 No nger Active Malia Bright MD Active PREDNISONE 20 MG TABS 2 daily for 3 days then 1 daily for 3 days PREDNISONE 79247860222 No Longer Active Amandeep Castillo DO Act ce PREDNISONE 20 MG TAB 2 tabs daily for 3 days, 1 t ab daily for 3 days, 1/2 tab daily for 2 days PREDNISONE 45937169464 No Longer Active Daniel Nguyễn MD Active CEFDINIR 300 MG CAPS by mouth twice a day CEFDI LANEY 76369887523 No Longer Active Amandeep Castillo DO Active TRIAMCINOLONE ACETONIDE 0.1 % CREA apply q 8 hours sparingly to itchy area's TRIAMCINOLONE ACETONIDE 50396916568 No Longer Active Tito Burkett MD Active TRIAMCINOLONE ACETONIDE 0.1 % CREA apply q 8 hours sparingly to itchy area's TRIAMCINOLONE ACETONIDE 0.1 % CREA 8164832 TRIAMCINOLONE ACETONIDE Inactive PREDNISONE 20 MG TABS 2 daily for 3 days then 1 daily for 3 days PREDNISONE 20 MG TABS 876548 PREDNISONE Inactive FLUTICASONE PROPIONATE 50 MCG/ACT SUSP 1 to 2 sprays e ach nostril daily for allergies FLUTICASONE PROPIONATE 50 MCG/ACT SUSP 17 95981 FLUTICASONE PROPIONATE Inactive CEFDINIR 300 MG CAPS by mouth twice a day CEFDINIR 300 MG CAPS 229045 CEFDINIR Inactive PREDNISONE 20 MG TAB 2 tabs daily for 3 days, 1 t ab daily for 3 days, 1/2 tab daily for 2 days PREDNISONE 20 MG TAB 109207 PREDNISON E Inactive Vital Signs Date Name [...] HEPATITIS B S AG W/, Chlamyd ia/GC APTIMA/70892, HIV-1/2 Agn/ ... - Chemistry hepatitis B surface antigen NON-REACTIVE NON-RE ACTIVE Lab Report: HEPATITIS B S AG W/, Chlamyd ia/GC APTIMA/06788, HIV-1/2 Agn/ ... - Lab chlamydia DNA probe NOT DETECTED NOT DETECTED Lab Report: HEPATITIS B S AG W/, Chlamyd ia/GC APTIMA/45096, HIV-1/2 Agn/ ... - Microbiology Neisseria gonorrhoeae DNA probe NOT DETECTED NO T DETECTED Lab Report: HEPATITIS B S AG W/, Chlamyd ia/GC APTIMA/25319, HIV-1/2 Agn/ ... - Serology rapid plasma reagin antibody titer NON-REACTIVE NON-REACTIVE Office Procedure: Consult Colposcopy - C hemistry human chorionic gonadotropin , urine, qualitative (urine test) neg Encounters Code Encounter Date Provider Facility CPT-41700 Level 3 Est. Patient 16:51:44 CDT Amandeep hill [facility] [address] CPT-22879 Level 3 Est. Patient 15:10:02 CDT Daniel Nguyễn MD [facility] CPT-32604 Level 2 New Patient 16:16:35 CDT Tito moore MD [facility] CPT-37258 Level 3 Est. 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 Patient 19:59:16 CDT Amandeep hill [facility] Procedures Code Procedure Name Date Entry Date Standard Desc ription CPT-28955 Wet Prep/CEM - LAB USE ONLY 11:16:10 CDT 20 27/08/24 CPT-63984 [place] of cervix w bx ECC 10:13:06 CDT CPT-OV Office Visit 10:13:06 CDT
--- OUTSIDE RECORDS SUMMARY | 2020-05-13 21:03 | XMS REPORT | Clinical Summary ---
Author Author Admin, Isadora Graham Organization [facility] Address Unknown Phone Unavailable Allergies, Adverse [...] as needed for pain 201 05/18/24 IBUPROFEN 70637698341 No Longer Active Malia Bright MD A ctive AMOXICILLIN 500 MG TABS 2 tabs twice a day for 10 days AMOXICILLIN 10680320314 No Longer Active Tito Burkett MD Activ e PREDNISONE 20 MG TABS 2 daily for 3 days then 1 daily for 3 days PREDNISONE 97214979523 No Longer Active Tito Burkett MD Active FLUTICASONE PROPIONATE 50 MCG/ACT SUSP 1 to 2 sprays e ach nostril daily for allergies FLUTICASONE PROPIONATE 22726936950 Active R kennedy Burkett MD Active FLUTICASONE PROPIONATE 50 MCG/ACT SUSP 1 to 2 sprays e ach nostril daily for allergies FLUTICASONE PROPIONATE 04705658659 No Lo nger Active Malia Bright MD Active PREDNISONE 20 MG TABS 2 daily for 3 days then 1 daily for 3 days PREDNISONE 38440955298 No Longer Active Amandeep Castillo DO Act ce PREDNISONE 20 MG TAB 2 tabs daily for 3 days, 1 t ab daily for 3 days, 1/2 tab daily for 2 days PREDNISONE 78373512792 No Longer Active Daniel Nguyễn MD Active CEFDINIR 300 MG CAPS by mouth twice a day CEFDI LANEY 14523018954 No Longer Active Amandeep Castillo DO Active TRIAMCINOLONE ACETONIDE 0.1 % CREA apply q 8 hours sparingly to itchy area's TRIAMCINOLONE ACETONIDE 39013841304 No Longer Active Tito Burkett MD Active TRIAMCINOLONE ACETONIDE 0.1 % CREA apply q 8 hours sparingly to itchy area's TRIAMCINOLONE ACETONIDE 0.1 % CREA 1885550 TRIAMCINOLONE ACETONIDE Inactive PREDNISONE 20 MG TABS 2 daily for 3 days then 1 daily for 3 days PREDNISONE 20 MG TABS 429915 PREDNISONE Inactive FLUTICASONE PROPIONATE 50 MCG/ACT SUSP 1 to 2 sprays e ach nostril daily for allergies FLUTICASONE PROPIONATE 50 MCG/ACT SUSP 17 84770 FLUTICASONE PROPIONATE Inactive PREDNISONE 20 MG TABS 2 daily for 3 days then 1 daily for 3 days PREDNISONE 20 MG TABS 667712 PREDNISONE Inactive AMOXICILLIN 500 MG TABS 2 tabs twice a day for 10 days AMOXICILLIN 500 MG TABS 501717 AMOXICILLIN Inactive IBUPROFEN 600 MG TABS 1 three times a day as needed for pain 201 05/18/24 IBUPROFEN 600 MG TABS 319981 IBUPROFEN Inactive CEFDINIR 300 MG CAPS by mouth twice a day CEFDINIR 300 MG CAPS 671524 CEFDINIR Inactive PREDNISONE 20 MG TAB 2 tabs daily for 3 days, 1 t ab daily for 3 days, 1/2 tab daily for 2 days PREDNISONE 20 MG TAB 708890 PREDNISON E Inactive Vital Signs Date Name [...] Value Unit Range Description Lab Report: Chlamydia/GC APTIMA/13374 - Lab chlamydia DNA probe NOT DETECTED NOT DETECTED Lab Report: Chlamydia/GC APTIMA/70715 - Microbiology Neisseria gonorrhoeae DNA probe NOT DETECTED NO T DETECTED Lab Report: HEPATITIS B S AG W/, Chlamyd ia/GC APTIMA/94666, HIV-1/2 Agn/ ... - Chemistry hepatitis B surface antigen NON-REACTIVE NON-RE ACTIVE rapid plasma reagin antibody titer NON-REACTIVE NON-REACTIVE Lab Report: HEPATITIS B S AG W/, Chlamyd ia/GC APTIMA/20856, HIV-1/2 Agn/ ... - Lab chlamydia DNA probe NOT DETECTED NOT DETECTED Lab Report: HEPATITIS B S AG W/, Chlamyd ia/GC APTIMA/24295, HIV-1/2 Agn/ ... - Microbiology Neisseria gonorrhoeae DNA probe NOT DETECTED NO T DETECTED Office Procedure: Consult Colposcopy - C hemistry human chorionic gonadotropin , urine, qualitative (urine test) neg Office Visit: Irregular bleeding - Chemi stry human chorionic gonadotropin , urine, qualitative (urine test) Negative Encounters Code Encounter Date Provider Facility CPT-29014 Level 4 Est. Patient 09:59:10 CDT Malia mckeon MD [facility] CPT-79212 Level 3 Est. Patient 15:42:35 CDT Tito Burkett MD [facility] CPT-17673 Level 3 Est. 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 Patient 16:51:44 CDT Amandeep hill [facility] CPT-80225 Level 3 Est. Patient 15:10:02 CDT Daniel Nguyễn MD [facility] CPT-78178 Level 2 New Patient 16:16:35 CDT Tito moore MD [facility] CPT-05748 Level 3 Est. 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 Patient 19:59:16 CDT Amandeep hill [facility] Procedures Code Procedure Name Date Entry Date Standard Desc ription CPT-20310 [facility] Urine - CARLY ONLY 10:08:25 CDT 07/10 CPT-38616 Wet Prep/CEM - LAB USE ONLY 11:16:10 CDT 20 27/08/24 CPT-62372 [place] of cervix w bx ECC 10:13:06 CDT CPT-OV Office Visit 10:13:06 CDT
--- OUTSIDE RECORDS SUMMARY | 2020-05-13 21:03 | XMS REPORT | Clinical Summary ---
Author Author Admin, Isadora Graham Organization [facility] Address Unknown Phone Unavailable Allergies, Adverse Reactions, [...] as needed for pain 201 05/18/24 IBUPROFEN [id number] No Longer Active Malia Bright MD A ctive AMOXICILLIN 500 MG TABS 2 tabs twice a day for 10 days AMOXICILLIN 44739525263 No Longer Active Tito Burkett MD Activ e PREDNISONE 20 MG TABS 2 daily for 3 days then 1 daily for 3 days PREDNISONE 29404038047 No Longer Active Tito Burkett MD Active FLUTICASONE PROPIONATE 50 MCG/ACT SUSP 1 to 2 sprays e ach nostril daily for allergies FLUTICASONE PROPIONATE 08863092681 Active R kennedy Burkett MD Active FLUTICASONE PROPIONATE 50 MCG/ACT SUSP 1 to 2 sprays e ach nostril daily for allergies FLUTICASONE PROPIONATE 24259874916 No Lo nger Active Malia Bright MD Active PREDNISONE 20 MG TABS 2 daily for 3 days then 1 daily for 3 days PREDNISONE 07881772725 No Longer Active Amandeep Castillo DO Act ce PREDNISONE 20 MG TAB 2 tabs daily for 3 days, 1 t ab daily for 3 days, 1/2 tab daily for 2 days PREDNISONE 76342055371 No Longer Active Daniel Nguyễn MD Active CEFDINIR 300 MG CAPS by mouth twice a day CEFDI LANEY 74969904566 No Longer Active Amandeep Castillo DO Active TRIAMCINOLONE ACETONIDE 0.1 % CREA apply q 8 hours sparingly to itchy area's TRIAMCINOLONE ACETONIDE 46794462687 No Longer Active Tito Burektt MD Active TRIAMCINOLONE ACETONIDE 0.1 % CREA apply q 8 hours sparingly to itchy area's TRIAMCINOLONE ACETONIDE 0.1 % CREA 0764147 TRIAMCINOLONE ACETONIDE Inactive PREDNISONE 20 MG TABS 2 daily for 3 days then 1 daily for 3 days PREDNISONE 20 MG TABS 503237 PREDNISONE Inactive FLUTICASONE PROPIONATE 50 MCG/ACT SUSP 1 to 2 sprays e ach nostril daily for allergies FLUTICASONE PROPIONATE 50 MCG/ACT SUSP 17 95873 FLUTICASONE PROPIONATE Inactive PREDNISONE 20 MG TABS 2 daily for 3 days then 1 daily for 3 days PREDNISONE 20 MG TABS 705279 PREDNISONE Inactive AMOXICILLIN 500 MG TABS 2 tabs twice a day for 10 days AMOXICILLIN 500 MG TABS 185603 AMOXICILLIN Inactive IBUPROFEN 600 MG TABS 1 three times a day as needed for pain 201 05/18/24 IBUPROFEN 600 MG TABS 695392 IBUPROFEN Inactive CEFDINIR 300 MG CAPS by mouth twice a day CEFDINIR 300 MG CAPS 194595 CEFDINIR Inactive PREDNISONE 20 MG TAB 2 tabs daily for 3 days, 1 t ab daily for 3 days, 1/2 tab daily for 2 days PREDNISONE 20 MG TAB 498235 PREDNISON E Inactive Vital Signs Date Name [...] (L) - Chemistry sodium, serum 138 mmol/L 463-513 0747/09/06 carbon dioxide, venous blood 21.9 mmol/L 21.0-32 [...] 348 10^3/MM^3 10*3/mm3 142-424 Lab Report: Chlamydia/GC APTIMA/56581 - Lab chlamydia DNA probe NOT DETECTED NOT DETECTED Lab Report: Chlamydia/GC APTIMA/37025 - Microbiology Neisseria gonorrhoeae DNA probe NOT DETECTED NO T DETECTED Lab Report: HEPATITIS B S AG W/, Chlamyd ia/GC APTIMA/61353, HIV-1/2 Agn/ ... - Chemistry hepatitis B surface antigen NON-REACTIVE NON-RE ACTIVE rapid plasma reagin antibody titer NON-REACTIVE NON-REACTIVE Lab Report: HEPATITIS B S AG W/, Chlamyd ia/GC APTIMA/01807, HIV-1/2 Agn/ ... - Lab chlamydia DNA probe NOT DETECTED NOT DETECTED Lab Report: HEPATITIS B S AG W/, Chlamyd ia/GC APTIMA/44989, HIV-1/2 Agn/ ... - Microbiology Neisseria gonorrhoeae DNA probe NOT DETECTED NO T DETECTED Office Procedure: Consult Colposcopy - C hemistry human chorionic gonadotropin , urine, qualitative (urine test) neg Office Visit: Irregular bleeding - Chemi stry human chorionic gonadotropin , urine, qualitative (urine test) Negative Encounters Code Encounter Date Provider Facility CPT-16794 Level 4 Est. Patient 09:59:10 CDT Malia mckeon MD [facility] CPT-38213 Level 3 Est. Patient 15:42:35 CDT Tito Burkett MD [facility] CPT-28794 Level 3 Est. 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 Patient 16:51:44 CDT Amandeep hill [facility] CPT-05502 Level 3 Est. Patient 15:10:02 CDT Daniel Nguyễn MD [facility] CPT-26150 Level 2 New Patient 16:16:35 CDT Tito moore MD [facility] CPT-12300 Level 3 Est. 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 Patient 19:59:16 CDT Amandeep hill [facility] Procedures Code Procedure Name Date Entry Date Standard Desc ription [facility]02 [facility] 10:08:25 CDT 07/10 CPT-08829 Wet Prep/CEM - LAB USE ONLY 11:16:10 CDT 20 27/08/24 CPT-06338 [place] of cervix w bx ECC 10:13:06 CDT CPT-OV Office Visit 10:13:06 CDT
--- NOTE | 2020-05-13 21:04 | ED Integumentary General ---
General Stated Complaint: POSS SPIDER BITE ON FOOT History of Present Illness Date Seen by Provider: May 13, 2020 Time Seen by Provider: 21:02 Initial Comments 25-year-old female presents with 2 abscesses/sores with some surrounding cellulitis on her left foot. The sores have been there for at least 2 weeks. Over the last week to a couple days has become more erythematous sore warm to touch with some drainage. She was concerned that they might be "spider bites" she does not have any systemic symptoms such as fevers chills nausea vomiting. Allergies and Home Medications Allergies Coded Allergies: Antihistamines - Alkylamine (Verified Allergy, Unknown, 05/13/20) Patient Home Medication List Home Medication List Reviewed: Yes Review of Systems Review of Systems Constitutional: No chills, No fever EENTM: no symptoms reported Respiratory: No cough, No short of breath Cardiovascular: No chest pain Gastrointestinal: No abdominal pain, No nausea, No vomiting Musculoskeletal: no symptoms reported Skin: see HPI Psychiatric/Neurological: No Symptoms Reported Past Laaitog-Ubicoz-Tghokr Hx Past Med/Social Hx: Reviewed Nursing Past Med/Soc Hx Patient Social History Recent Foreign Travel: No Contact w/Someone Who Travel: No Physical Exam Vital Signs Capillary Refill : General Appearance: WD/WN, no apparent distress Cardiovascular: normal peripheral pulses, regular rate, rhythm Respiratory: lungs clear, normal breath sounds Gastrointestinal: non tender, soft Extremities: non-tender, normal inspection Neurologic/Psychiatric: 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 Referrals: KOSTAS DENIS MD, ([facility]) (PCP) Primary Care Physician Patient Instructions: Skin Abscess, Cellulitis and Erysipelas (Skin Infections) Add. Discharge Instructions: Follow-up with your primary care provider on Sunday to recheck your symptoms Scripts Sulfamethoxazole/Trimethoprim (Bactrim Ds Tablet) 1 Each Tablet 1 EACH PO BID for 10 Days, #20 TAB Prov: ARMIN BOLDEN DO 05/13/20 ARMIN BOLDEN DO May 13, 2020 21:04
--- OUTSIDE RECORDS SUMMARY | 2020-05-13 21:04 | XMS REPORT | Clinical Summary ---
Author Author Admin, Isadora Graham Organization [facility] Address Unknown Phone Unavailable Allergies, Adverse [...] as needed for pain 201 05/18/24 IBUPROFEN [id number] No Longer Active Malia Bright MD A ctive AMOXICILLIN 500 MG TABS 2 tabs twice a day for 10 days AMOXICILLIN 74552163029 No Longer Active Tito Burkett MD Activ e PREDNISONE 20 MG TABS 2 daily for 3 days then 1 daily for 3 days PREDNISONE 84638098306 No Longer Active Tito Burkett MD Active FLUTICASONE PROPIONATE 50 MCG/ACT SUSP 1 to 2 sprays e ach nostril daily for allergies FLUTICASONE PROPIONATE 12076774683 Active R kennedy Burkett MD Active FLUTICASONE PROPIONATE 50 MCG/ACT SUSP 1 to 2 sprays e ach nostril daily for allergies FLUTICASONE PROPIONATE 12990741152 No Lo nger Active Malia Bright MD Active PREDNISONE 20 MG TABS 2 daily for 3 days then 1 daily for 3 days PREDNISONE 87366687332 No Longer Active Amandeep Castillo DO Act ce PREDNISONE 20 MG TAB 2 tabs daily for 3 days, 1 t ab daily for 3 days, 1/2 tab daily for 2 days PREDNISONE 03630745350 No Longer Active Daniel Nguyễn MD Active CEFDINIR 300 MG CAPS by mouth twice a day CEFDI LANEY 66534799987 No Longer Active Amandeep Castillo DO Active TRIAMCINOLONE ACETONIDE 0.1 % CREA apply q 8 hours sparingly to itchy area's TRIAMCINOLONE ACETONIDE 13062264161 No Longer Active Tito Burkett MD Active TRIAMCINOLONE ACETONIDE 0.1 % CREA apply q 8 hours sparingly to itchy area's TRIAMCINOLONE ACETONIDE 0.1 % CREA 1476426 TRIAMCINOLONE ACETONIDE Inactive PREDNISONE 20 MG TABS 2 daily for 3 days then 1 daily for 3 days PREDNISONE 20 MG TABS 984870 PREDNISONE Inactive FLUTICASONE PROPIONATE 50 MCG/ACT SUSP 1 to 2 sprays e ach nostril daily for allergies FLUTICASONE PROPIONATE 50 MCG/ACT SUSP 17 05992 FLUTICASONE PROPIONATE Inactive PREDNISONE 20 MG TABS 2 daily for 3 days then 1 daily for 3 days PREDNISONE 20 MG TABS 981874 PREDNISONE Inactive AMOXICILLIN 500 MG TABS 2 tabs twice a day for 10 days AMOXICILLIN 500 MG TABS 978772 AMOXICILLIN Inactive IBUPROFEN 600 MG TABS 1 three times a day as needed for pain 201 05/18/24 IBUPROFEN 600 MG TABS 498360 IBUPROFEN Inactive CEFDINIR 300 MG CAPS by mouth twice a day CEFDINIR 300 MG CAPS 797559 CEFDINIR Inactive PREDNISONE 20 MG TAB 2 tabs daily for 3 days, 1 t ab daily for 3 days, 1/2 tab daily for 2 days PREDNISONE 20 MG TAB 273470 PREDNISON E Inactive Vital Signs Date Name [...] (L) - Chemistry sodium, serum 138 mmol/L 185-153 8159/09/06 carbon dioxide, venous blood 21.9 mmol/L 21.0-32 [...] 348 10^3/MM^3 10*3/mm3 142-424 Lab Report: Chlamydia/GC APTIMA/29649 - Lab chlamydia DNA probe NOT DETECTED NOT DETECTED Lab Report: Chlamydia/GC APTIMA/55723 - Microbiology Neisseria gonorrhoeae DNA probe NOT DETECTED NO T DETECTED Lab Report: HEPATITIS B S AG W/, Chlamyd ia/GC APTIMA/70148, HIV-1/2 Agn/ ... - Chemistry hepatitis B surface antigen NON-REACTIVE NON-RE ACTIVE rapid plasma reagin antibody titer NON-REACTIVE NON-REACTIVE Lab Report: HEPATITIS B S AG W/, Chlamyd ia/GC APTIMA/48778, HIV-1/2 Agn/ ... - Lab chlamydia DNA probe NOT DETECTED NOT DETECTED Lab Report: HEPATITIS B S AG W/, Chlamyd ia/GC APTIMA/06847, HIV-1/2 Agn/ ... - Microbiology Neisseria gonorrhoeae DNA probe NOT DETECTED NO T DETECTED Office Procedure: Consult Colposcopy - C hemistry human chorionic gonadotropin , urine, qualitative (urine test) neg Office Visit: Irregular bleeding - Chemi stry human chorionic gonadotropin , urine, qualitative (urine test) Negative Encounters Code Encounter Date Provider Facility CPT-38198 Level 4 Est. Patient 09:59:10 CDT Malia mckeon MD [facility] CPT-13069 Level 3 Est. Patient 15:42:35 CDT Tito Burkett MD [facility] CPT-09607 Level 3 Est. 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 Patient 16:51:44 CDT Amandeep hill [facility] CPT-64922 Level 3 Est. Patient 15:10:02 CDT Daniel Nguyễn MD [facility] CPT-06801 Level 2 New Patient 16:16:35 CDT Tito moore MD [facility] CPT-66609 Level 3 Est. 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 Patient 19:59:16 CDT Amandeep hill [facility] Procedures Code Procedure Name Date Entry Date Standard Desc ription [facility]22286 [facility] - CARLY ONLY 10:08:25 CDT 07/10 CPT-10426 Wet Prep/CEM - LAB USE ONLY 11:16:10 CDT 20 27/08/24 CPT-19537 [place] of cervix w bx ECC 10:13:06 CDT CPT-OV Office Visit 10:13:06 CDT
--- OUTSIDE RECORDS SUMMARY | 2020-05-13 21:04 | XMS REPORT | Clinical Summary ---
Author Author Admin, Isadora Graham Organization [facility] Address Unknown Phone Unavailable Allergies, [...] day as needed for pain 06/04 IBUPROFEN 18606277477 Active Tito Burkett MD Active AMOXICILLIN 500 MG TABS 2 tabs twice a day for 10 days AMOXICILLIN 26737076901 No Longer Active Tito Burkett MD Activ e PREDNISONE 20 MG TABS 2 daily for 3 days then 1 daily for 3 days PREDNISONE 51518901831 No Longer Active Tito Burkett MD Active FLUTICASONE PROPIONATE 50 MCG/ACT SUSP 1 to 2 sprays e ach nostril daily for allergies FLUTICASONE PROPIONATE 30671862095 Active R kennedy Burkett MD Active FLUTICASONE PROPIONATE 50 MCG/ACT SUSP 1 to 2 sprays e ach nostril daily for allergies FLUTICASONE PROPIONATE 74360881794 No Lo nger Active Malia Bright MD Active PREDNISONE 20 MG TABS 2 daily for 3 days then 1 daily for 3 days PREDNISONE 08160510246 No Longer Active Amandeep Castillo DO Act ce PREDNISONE 20 MG TAB 2 tabs daily for 3 days, 1 t ab daily for 3 days, 1/2 tab daily for 2 days PREDNISONE 56364650473 No Longer Active Daniel Nguyễn MD Active CEFDINIR 300 MG CAPS by mouth twice a day CEFDI LANEY 11803577437 No Longer Active Amandeep Castillo DO Active TRIAMCINOLONE ACETONIDE 0.1 % CREA apply q 8 hours sparingly to itchy area's TRIAMCINOLONE ACETONIDE 66793145222 No Longer Active Tito Burkett MD Active TRIAMCINOLONE ACETONIDE 0.1 % CREA apply q 8 hours sparingly to itchy area's TRIAMCINOLONE ACETONIDE 0.1 % CREA 5315749 TRIAMCINOLONE ACETONIDE Inactive PREDNISONE 20 MG TABS 2 daily for 3 days then 1 daily for 3 days PREDNISONE 20 MG TABS 670513 PREDNISONE Inactive FLUTICASONE PROPIONATE 50 MCG/ACT SUSP 1 to 2 sprays e ach nostril daily for allergies FLUTICASONE PROPIONATE 50 MCG/ACT SUSP 17 75586 FLUTICASONE PROPIONATE Inactive PREDNISONE 20 MG TABS 2 daily for 3 days then 1 daily for 3 days PREDNISONE 20 MG TABS 708309 PREDNISONE Inactive AMOXICILLIN 500 MG TABS 2 tabs twice a day for 10 days AMOXICILLIN 500 MG TABS 820413 AMOXICILLIN Inactive CEFDINIR 300 MG CAPS by mouth twice a day CEFDINIR 300 MG CAPS 456771 CEFDINIR Inactive PREDNISONE 20 MG TAB 2 tabs daily for 3 days, 1 t ab daily for 3 days, 1/2 tab daily for 2 days PREDNISONE 20 MG TAB 908559 PREDNISON E Inactive Vital Signs Date Name [...] HEPATITIS B S AG W/, Chlamyd ia/GC APTIMA/65511, HIV-1/2 Agn/ ... - Chemistry hepatitis B surface antigen NON-REACTIVE NON-RE ACTIVE rapid plasma reagin antibody titer NON-REACTIVE NON-REACTIVE Lab Report: HEPATITIS B S AG W/, Chlamyd ia/GC APTIMA/19164, HIV-1/2 Agn/ ... - Lab chlamydia DNA probe NOT DETECTED NOT DETECTED Lab Report: HEPATITIS B S AG W/, Chlamyd ia/GC APTIMA/52111, HIV-1/2 Agn/ ... - Microbiology Neisseria gonorrhoeae DNA probe NOT DETECTED NO T DETECTED Office Procedure: Consult Colposcopy - C hemistry human chorionic gonadotropin , urine, qualitative (urine test) neg Encounters Code Encounter Date Provider Facility CPT-50356 Level 3 Est. Patient 15:42:35 CDT Tito Burkett MD [facility] CPT-58441 Level 3 Est. 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 Patient 16:51:44 CDT Amandeep hill [facility] CPT-12735 Level 3 Est. Patient 15:10:02 CDT Daniel Nguyễn MD [facility] CPT-60327 Level 2 New Patient 16:16:35 CDT Tito moore MD [facility] CPT-42680 Level 3 Est. Patient 18:15:55 ENCEPHALOGRAPHER Amandeep hill [facility] CPT-36453 Level 3 Est. Patient 19:59:16 CDT Amandeep hill [facility] Procedures Code Procedure Name Date Entry Date Standard Desc ription CPT-99125 Wet Prep/CEM - LAB USE ONLY 11:16:10 CDT 20 27/08/24 CPT-47628 [place] of cervix w bx ECC 10:13:06 CDT CPT-OV Office Visit 10:13:06 CDT
--- OUTSIDE RECORDS SUMMARY | 2020-05-13 21:04 | XMS REPORT | Clinical Summary ---
[...] risk HPV 795.15 Active 20 27/08/24 Malia Birght MD Vaginal high risk human papillomavirus ( [...] ach nostril daily for allergies FLUTICASONE PROPIONATE 93442916954 No Lo nger Active Malia Bright MD Active PREDNISONE 20 MG TABS 2 daily for 3 days then 1 daily for 3 days PREDNISONE 76759666703 No Longer Active Amandeep Castillo DO Act ce PREDNISONE 20 MG TAB 2 tabs daily for 3 days, 1 t ab daily for 3 days, 1/2 tab daily for 2 days PREDNISONE 13278136606 No Longer Active Daniel Nguyễn MD Active CEFDINIR 300 MG CAPS by mouth twice a day CEFDI LANEY 49122461137 No Longer Active Amandeep Castillo DO Active TRIAMCINOLONE ACETONIDE 0.1 % CREA apply q 8 hours sparingly to itchy area's TRIAMCINOLONE ACETONIDE 98938116764 No Longer Active Tito Burkett MD Active TRIAMCINOLONE ACETONIDE 0.1 % CREA apply q 8 hours sparingly to itchy area's TRIAMCINOLONE ACETONIDE 0.1 % CREA 5369981 TRIAMCINOLONE ACETONIDE Inactive PREDNISONE 20 MG TABS 2 daily for 3 days then 1 daily for 3 days PREDNISONE 20 MG TABS 211337 PREDNISONE Inactive FLUTICASONE PROPIONATE 50 MCG/ACT SUSP 1 to 2 sprays e ach nostril daily for allergies FLUTICASONE PROPIONATE 50 MCG/ACT SUSP 17 28863 FLUTICASONE PROPIONATE Inactive CEFDINIR 300 MG CAPS by mouth twice a day CEFDINIR 300 MG CAPS 901047 CEFDINIR Inactive PREDNISONE 20 MG TAB 2 tabs daily for 3 days, 1 t ab daily for 3 days, 1/2 tab daily for 2 days PREDNISONE 20 MG TAB 694286 PREDNISON E Inactive Vital Signs Date Name [...] HEPATITIS B S AG W/, Chlamyd ia/GC APTIMA/63081, HIV-1/2 Agn/ ... - Chemistry hepatitis B surface antigen NON-REACTIVE NON-RE ACTIVE Lab Report: HEPATITIS B S AG W/, Chlamyd ia/GC APTIMA/89624, HIV-1/2 Agn/ ... - Lab chlamydia DNA probe NOT DETECTED NOT DETECTED Lab Report: HEPATITIS B S AG W/, Chlamyd ia/GC APTIMA/42363, HIV-1/2 Agn/ ... - Microbiology Neisseria gonorrhoeae DNA probe NOT DETECTED NO T DETECTED Lab Report: HEPATITIS B S AG W/, Chlamyd ia/GC APTIMA/66932, HIV-1/2 Agn/ ... - Serology rapid plasma reagin antibody titer NON-REACTIVE NON-REACTIVE Office Procedure: Consult Colposcopy - C hemistry human chorionic gonadotropin , urine, qualitative (urine test) neg Encounters Code Encounter Date Provider Facility CPT-92745 Level 3 Est. Patient 16:51:44 CDT Amandeep hill [facility] CPT-40225 Level 3 Est. Patient 15:10:02 CDT Daniel Nguyễn MD [facility] CPT-69996 Level 2 New Patient 16:16:35 CDT Tito moore MD [facility] CPT-43024 Level 3 Est. 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 Patient 19:59:16 CDT Amandeep hill [facility] Procedures Code Procedure Name Date Entry Date Standard Desc ription CPT-21764 Wet Prep/CEM - LAB USE ONLY 11:16:10 CDT 20 27/08/24 CPT-46752 [place] of cervix w bx ECC 10:13:06 CDT CPT-OV Office Visit 10:13:06 CDT
--- OUTSIDE RECORDS SUMMARY | 2020-05-13 21:04 | XMS REPORT | Clinical Summary ---
Author Author Admin, Isadora Graham Organization [facility] Address Unknown Phone Unavailable Allergies, Adverse Reactions, [...] DNA test positive Std screening V74.5 Active aMlia Bright MD Screening examination for venereal disease [...] day as needed for pain 06/04 IBUPROFEN 58274571905 Active Tito Burkett MD Active AMOXICILLIN 500 MG TABS 2 tabs twice a day for 10 days AMOXICILLIN 57454283094 No Longer Active Tito Burkett MD Activ e PREDNISONE 20 MG TABS 2 daily for 3 days then 1 daily for 3 days PREDNISONE 93187175517 No Longer Active Tito Burkett MD Active FLUTICASONE PROPIONATE 50 MCG/ACT SUSP 1 to 2 sprays e ach nostril daily for allergies FLUTICASONE PROPIONATE 72438719914 Active R kennedy Burkett MD Active FLUTICASONE PROPIONATE 50 MCG/ACT SUSP 1 to 2 sprays e ach nostril daily for allergies FLUTICASONE PROPIONATE 60562753993 No Lo nger Active Malia Bright MD Active PREDNISONE 20 MG TABS 2 daily for 3 days then 1 daily for 3 days PREDNISONE 03188673848 No Longer Active Amandeep Castillo DO Act ce PREDNISONE 20 MG TAB 2 tabs daily for 3 days, 1 t ab daily for 3 days, 1/2 tab daily for 2 days PREDNISONE 88036327397 No Longer Active Daniel Nguyễn MD Active CEFDINIR 300 MG CAPS by mouth twice a day CEFDI LANEY 64432115366 No Longer Active Amandeep Castillo DO Active TRIAMCINOLONE ACETONIDE 0.1 % CREA apply q 8 hours sparingly to itchy area's TRIAMCINOLONE ACETONIDE 73293394319 No Longer Active Tito Burkett MD Active TRIAMCINOLONE ACETONIDE 0.1 % CREA apply q 8 hours sparingly to itchy area's TRIAMCINOLONE ACETONIDE 0.1 % CREA 7872006 TRIAMCINOLONE ACETONIDE Inactive PREDNISONE 20 MG TABS 2 daily for 3 days then 1 daily for 3 days PREDNISONE 20 MG TABS 019301 PREDNISONE Inactive FLUTICASONE PROPIONATE 50 MCG/ACT SUSP 1 to 2 sprays e ach nostril daily for allergies FLUTICASONE PROPIONATE 50 MCG/ACT SUSP 17 99236 FLUTICASONE PROPIONATE Inactive PREDNISONE 20 MG TABS 2 daily for 3 days then 1 daily for 3 days PREDNISONE 20 MG TABS 415805 PREDNISONE Inactive AMOXICILLIN 500 MG TABS 2 tabs twice a day for 10 days AMOXICILLIN 500 MG TABS 977222 AMOXICILLIN Inactive CEFDINIR 300 MG CAPS by mouth twice a day CEFDINIR 300 MG CAPS 424275 CEFDINIR Inactive PREDNISONE 20 MG TAB 2 tabs daily for 3 days, 1 t ab daily for 3 days, 1/2 tab daily for 2 days PREDNISONE 20 MG TAB 168615 PREDNISON E Inactive Vital Signs Date Name [...] HEPATITIS B S AG W/, Chlamyd ia/GC APTIMA/85376, HIV-1/2 Agn/ ... - Chemistry hepatitis B surface antigen NON-REACTIVE NON-RE ACTIVE rapid plasma reagin antibody titer NON-REACTIVE NON-REACTIVE Lab Report: HEPATITIS B S AG W/, Chlamyd ia/GC APTIMA/64052, HIV-1/2 Agn/ ... - Lab chlamydia DNA probe NOT DETECTED NOT DETECTED Lab Report: HEPATITIS B S AG W/, Chlamyd ia/GC APTIMA/33820, HIV-1/2 Agn/ ... - Microbiology Neisseria gonorrhoeae DNA probe NOT DETECTED NO T DETECTED Office Procedure: Consult Colposcopy - C hemistry human chorionic gonadotropin , urine, qualitative (urine test) neg Encounters Code Encounter Date Provider Facility CPT-85135 Level 3 Est. Patient 15:42:35 CDT Tiot Burkett MD [facility] CPT-39772 Level 3 Est. Patient 10:58:07 MINE CAPTAIN Tito Burkett MD [facility] CPT-48802 Level 3 Est. Patient 16:51:44 CDT Amandeep hill [facility] CPT-01797 Level 3 Est. Patient 15:10:02 CDT Daniel Nguyễn MD [facility] CPT-43650 Level 2 New Patient 16:16:35 CDT Tito moore MD [facility] CPT-61146 Level 3 Est. Patient 18:15:55 MINE CAPTAIN Amandeep hill [facility] CPT-16237 Level 3 Est. Patient 19:59:16 CDT Amandeep hill [facility] Procedures Code Procedure Name Date Entry Date Standard Desc ription CPT-62609 Wet Prep/CEM - LAB USE ONLY 11:16:10 CDT 20 27/08/24 CPT-44744 [place] of cervix w bx ECC 10:13:06 CDT CPT-OV Office Visit 10:13:06 CDT
[2020-05-13] MEDS ORDERED: SULF1TAB35 PO (21:13)
[2020-05-13] MEDS ORDERED: TRIM/SULFAMETH 160/800 (SEPTRA DS) TAB PO ONE (21:15)
== END 2020-05-13 21:16 | disposition home or self-care (01) ==
LOC: EDUNIT# 20:55 → ER FS 20:56
DX: L02.612 Cutaneous abscess of left foot (principal); L03.116 Cellulitis of left lower limb
CPT/HCPCS: 87070; 87077; 87186; 87205; 99283

== ENCOUNTER 2020-05-14 19:54 | Observation (INO) | payer SELFPAY ==
[~2020-05-14] VITALS: Ht 164 cm; Wt 136.7 kg
[~2020-05-14 19:54] MED LIST: SULF1TAB35 PO
[2020-05-14] MEDS ORDERED: TETANUS,DIPTH,PERTUSS P/F (BOOSTRIX) 0.5 ML VIAL IM ONE (20:30)
[2020-05-14] MEDS ORDERED: ACETAMINOPHEN 325 MG TABLET PO ONE (20:30)
[2020-05-14] MEDS ORDERED: VANCOMYCIN INJECTION 1,000 MG in NS (IVPB) 250 ML IV ONE (20:30)
[2020-05-14] MEDS ORDERED: KETOROLAC 30 MG/ML VIAL IVP ONE (20:30)
[2020-05-14] MEDS ORDERED: NS IV 1000 ML 1,000 ML IV SCH ×2 (20:30→20:42)
[2020-05-14 20:59] LABS: BASOPHILS # (AUTO) 0.1 10^3/uL (0.0-0.1); BASOPHILS % (AUTO) 1 % (0-10); EOSINOPHILS # (AUTO) 0.3 10^3/uL (0.0-0.3); EOSINOPHILS % (AUTO) 4 % (0-10); HEMATOCRIT 46 % (35-52); HEMOGLOBIN 14.6 G/DL (11.5-16.0); LYMPHOCYTES # (AUTO) 1.5 X 10^3 (1.0-4.0); LYMPHOCYTES % (AUTO) 18 % (12-44); MEAN CORPUSCULAR HEMOGLOBIN 31 PG (25-34); MEAN CORPUSCULAR HGB CONC 32 G/DL (32-36); MEAN CORPUSCULAR VOLUME 97 FL (80-99); MEAN PLATELET VOLUME 11.8 FL (7.4-10.4); MONOCYTES # (AUTO) 0.6 X 10^3 (0.0-1.0); MONOCYTES % (AUTO) 7 % (0-12); NEUTROPHILS % (AUTO) 71 % (42-75); PLATELET COUNT 190 10^3/uL (130-400); RED CELL DISTRIBUTION WIDTH 13.5 % (10.0-14.5); WHITE BLOOD COUNT 8.6 10^3/uL (4.3-11.0)
[2020-05-14 21:30] LABS: ALANINE AMINOTRANSFERASE 10 U/L (0-55); ALBUMIN 3.7 GM/DL (3.2-4.5); ALKALINE PHOSPHATASE 88 U/L (40-136); BILIRUBIN,TOTAL 0.3 MG/DL (0.1-1.0); BUN/CREATININE RATIO 12; CALCIUM 8.8 MG/DL (8.5-10.1); CARBON DIOXIDE 20 MMOL/L (21-32); CHLORIDE 103 MMOL/L (98-107); CREATININE SERUM 0.75 MG/DL (0.60-1.30); GFR ESTIMATED > 60; GLUCOSE 115 MG/DL (70-105); POTASSIUM 3.8 MMOL/L (3.6-5.0); SODIUM 137 MMOL/L (135-145)
[2020-05-14 21:40] LABS: ERYTHROCYTE SEDIMENTATION RATE 79 MM/HR (0-20)
--- NOTE | 2020-05-14 22:25 | ED Integumentary General ---
General Chief Complaint: Skin/Wound Problems Stated Complaint: SPIDER BITE WORSENING Nursing Triage Note: Pt seen in ER last night for infection on left foot. Pt was given a prescription for an antibiotic and states that her foot has worsened over the day today History of Present Illness Date Seen by Provider: May 14, 2020 Time Seen by Provider: 20:00 Initial Comments The patient is a 25-year-old female who is otherwise healthy and has no known medical history. She is not diabetic. She presents with concern for several worsening areas of cellulitis to her bilateral feet, worst on the left side. The lesions which she feels caused the problem have been present for about 2 weeks ever since she went on a camping trip and sustained numerous mosquito bites. She states that all of the spots which are infected started as mosquito bites. She was seen here yesterday for evaluation of the same symptoms and shows me photographs of her feet from yesterday evening. Erythema yesterday was much more localized around the lesion sites and not confluent. On the left, there is now confluent erythema and swelling involving the entire dorsal foot. She states that symptoms worsen despite compliance with the Bactrim she was prescribed yesterday. She denies fevers, nausea or vomiting or other systemic symptoms of concern. She denies any injection drug use. She is afebrile and vital signs are generally appropriate here. Allergies and Home Medications Allergies Coded Allergies: Antihistamines - Alkylamine (Verified Allergy, Unknown, 05/13/20) Home Medications Sulfamethoxazole/Trimethoprim 1 Each Tablet, 1 EACH PO BID Prescribed by: ARMIN BOLDEN on 05/13/202112 Patient Home Medication List Home Medication List Reviewed: Yes Review of Systems Review of Systems Constitutional: see HPI All Other Systems Reviewed Negative Unless Noted: Yes (Negative excepted noted.) Past Meroqkk-Ursxgs-Njdiqi Hx Past Med/Social Hx: Reviewed Nursing Past Med/Soc Hx Patient Social History Alcohol Use: Denies Use Recreational Drug Use: No Type Used: Cigarettes Recent Foreign Travel: No Contact w/Someone Who Travel: No Recent Infectious Disease Expo: No Physical Abuse: No Sexual Abuse: No Past Medical History Surgeries: Yes Orthopedic Respiratory: No Cardiac: No Neurological: No Genitourinary: No Gastrointestinal: No Musculoskeletal: No Endocrine: No HEENT: No Cancer: No Psychosocial: No Integumentary: No Family Medical History Reviewed Nursing Family Hx Physical Exam Vital Signs Vital Signs - First Documented 05/14/20 20:04 Temp 36.7 Pulse 104 Resp 18 B/P (MAP) 128/79 (95) Pulse Ox 97 O2 Delivery Room Air Capillary Refill : Less Than 3 Seconds General Appearance: no apparent distress Comments This is an obese female appearing nontoxic and in no acute distress. Head is normocephalic and atraumatic. Neck is supple and nontender. Oropharynx is moist. Lungs are clear to auscultation at all stations. There is a normal S1 and S2 without rubs or gallops and capillary refill is appropriate, less than 2 seconds globally. Abdomen is soft, nontender and nondistended. Skin is warm and dry without cyanosis, clubbing or edema. There are numerous punctate lesions over the patient's arms and legs consistent with likely bug bites. Psychiatrically, the patient demonstrates appropriate mood and affect and is alert. Examination of the bilateral lower extremities is remarkable for confluent erythema to the entire left dorsal foot, worse laterally, in association with 2 scabbed over lesions without fluctuance suggestive of abscess. There is a similar area, smaller, over the mid dorsal right foot. Associated swelling and tenderness. No joint irritability to the bilateral lower extremities. The bilateral lower extremities are neurovascularly intact distally with strength 5 out of 5, sensation intact to light touch in all nerve distributions, DP and PT pulses 2+, capillary refill less than 2 seconds, feet warm and well-perfused. Progress/Results/Core Measures Results/Orders Lab Results Laboratory Tests Test 05/14/20 20:48 Range/Units White Blood Count 8.6 4.3-11.0 10^3/uL Red Blood Count 4.74 4.35-5.85 10^6/uL Hemoglobin 14.6 11.5-16.0 G/DL Hematocrit 46 35-52 % Mean Corpuscular Volume 97 80-99 FL Mean Corpuscular Hemoglobin 31 25-34 PG Mean Corpuscular Hemoglobin Concent 32 32-36 G/DL Red Cell Distribution Width 13.5 10.0-14.5 % Platelet Count 190 130-400 10^3/uL Mean Platelet Volume 11.8 H 7.4-10.4 FL Neutrophils (%) (Auto) 71 42-75 % Lymphocytes (%) (Auto) 18 12-44 % Monocytes (%) (Auto) 7 0-12 % Eosinophils (%) (Auto) 4 0-10 % Basophils (%) (Auto) 1 0-10 % Neutrophils # (Auto) 6.0 1.8-7.8 X 10^3 Lymphocytes # (Auto) 1.5 1.0-4.0 X 10^3 Monocytes # (Auto) 0.6 0.0-1.0 X 10^3 Eosinophils # (Auto) 0.3 0.0-0.3 10^3/uL Basophils # (Auto) 0.1 0.0-0.1 10^3/uL Erythrocyte Sedimentation Rate 79 H 0-20 MM/HR Sodium Level 137 135-145 MMOL/L Potassium Level 3.8 3.6-5.0 MMOL/L Chloride Level 103 98-107 MMOL/L Carbon Dioxide Level 20 L 21-32 MMOL/L Anion Gap 14 5-14 MMOL/L Blood Urea Nitrogen 9 7-18 MG/DL Creatinine 0.75 0.60-1.30 MG/DL Estimat Glomerular Filtration Rate > 60 BUN/Creatinine Ratio 12 Glucose Level 115 H 70-105 MG/DL Lactic Acid Level 0.90 0.50-2.00 MMOL/L Calcium Level 8.8 8.5-10.1 MG/DL Corrected Calcium 9.0 8.5-10.1 MG/DL Total Bilirubin 0.3 0.1-1.0 MG/DL Aspartate Amino Transf (AST/SGOT) 17 5-34 U/L Alanine Aminotransferase (ALT/SGPT) 10 0-55 U/L Alkaline Phosphatase 88 40-136 U/L C-Reactive Protein 8.22 H <0.50 MG/DL Total Protein 7.0 6.4-8.2 GM/DL Albumin 3.7 3.2-4.5 GM/DL Serum Test, Qualitative NEGATIVE NEGATIVE My Orders Orders - DELIA CASTRO MD Cbc With Automated Diff (05/14/20 20:30) Comprehensive Metabolic Panel (05/14/20 20:30) Erythrocyte Sedimentation Rate (05/14/20 20:30) Crp Fs (05/14/20 20:30) Blood Culture (05/14/20 20:30) Lactic Acid Analyzer (05/14/20 20:30) Foot 2 View Bilateral (05/14/20 20:30) Ankle 2 View Bilateral (05/14/20 20:30) Ed Iv/Invasive Line Start (05/14/20 20:30) Ns Iv 1000 Ml (Sodium Chloride 0.9%) (05/14/20 20:30) Ketorolac Injection (Toradol Injection) (05/14/20 20:30) Acetaminophen Tablet/Caplet (Tylenol T (05/14/20 20:30) Dipht,Pertuss(Acell),Tet Adult (Boostrix (05/14/20 20:30) Vancomycin Injection (Vancomycin Injecti (05/14/20 20:30) Hcg,Qualitative Serum (05/14/20 20:30) Hand 3 View Right (05/14/20 20:42) Wrist 3 View Right (05/14/20 20:42) Ns Iv 1000 Ml (Sodium Chloride 0.9%) (05/14/20 20:42) Medications Given in ED Current Medications Medications Dose Ordered Sig/Henry Route Start Time Stop Time Status Last Admin Dose Admin Acetaminophen 975 mg ONCE ONCE PO 05/14/20 20:30 05/14/20 20:34 DC 05/14/20 21:18 975 MG Diphtheria/ Tetanus/Acell Pertussis 0.5 ml ONCE ONCE IM 05/14/20 20:30 05/14/20 20:34 DC 05/14/20 21:19 0.5 ML Ketorolac Tromethamine 30 mg ONCE ONCE IVP 05/14/20 20:30 05/14/20 20:34 DC 05/14/20 21:18 30 MG Vancomycin HCl 1000 mg/Sodium Chloride 250 ml @ 250 mls/hr ONCE ONCE IV 05/14/20 20:30 05/14/20 21:29 DC 05/14/20 21:17 250 MLS/HR Vital Signs/I&O 05/14/20 20:04 Temp 36.7 Pulse 104 Resp 18 B/P (MAP) 128/79 (95) Pulse Ox 97 O2 Delivery Room Air Blood Pressure Mean: 95 Progress Progress Note : Time: 22:23 Progress Note 25-year-old female who is generally well appearing who will require admission for IV antibiotics and close monitoring given significant worsening of her left greater than right foot cellulitis in the last 24 hours despite compliance with Bactrim therapy. We'll check labs and cultures and will give IV fluids and a dose of vancomycin and will plan for admission. 2200: Labs remarkable for no leukocytosis with considerable elevation and inflammatory markers. Patient has received a dose of IV vancomycin. Pain is controlled with Toradol. We'll proceed with observation admission at [facility]. Dr. Gifford graciously accepts. Departure Impression Primary Impression: Cellulitis of both feet Disposition: ADMITTED INPATIENT Condition: Stable Departure-Patient Inst. Referrals: KOSTAS DENIS MD, ([facility]) (PCP) Primary Care Physician DELIA CASTRO MD May 14, 2020 22:25
[2020-05-15] VITALS (7 sets, daily range): BP systolic 80–161; BP diastolic 52–82
--- NOTE | 2020-05-15 01:30 | NUR ---
JOSE AKINS admitted to room 412-1, with an admitting diagnosis of CELLULITIS OF BOTH FEET, on 05/14/20 from DIRECT ADMIT via WALKED IN, accompanied by ED RUNNER.JOSE AKINS introduced to surroundings, call light, bed controls, phone, TV, temperature control, lights, meal times, smoking policy, visitor policy, side rail policy, bathrooms and showers. Patient Rights given to patient in the handbook. JOSE AKINS verbalizes understanding that [facility] is not responsible for the loss or damage to any personal effects or valuables that are kept in the patients posession during their hospitalization. The following Patient Care Plans were discussed with the PATIENT: Discharge Planning,CELLULITIS, AND ANTIBIOTIC THERAPY. JOSE AKINS verbalizes understanding of Interdisciplinary Patient Education. Patient and/or family were informed about the Rapid Response Team and its purpose.
[2020-05-15] MEDS ORDERED: KETOROLAC 30 MG/ML VIAL IV PRN (01:45)
[2020-05-15] MEDS ORDERED: ONDANSETRON 4 MG/2 ML (SDV) Z0FRAN IV PRN ×2 (01:45→11:45)
[2020-05-15] MEDS ORDERED: VANCOMYCIN 1 GM/NS 250 ML IVPB IV SCH ×2 (01:45)
[2020-05-15] MEDS: NS IV 1000 ML 1,000 ML IV SCH ×3 (02:51→16:57)
[2020-05-15] MEDS ORDERED: NS (IVPB) 250 ML ONE (03:00)
[2020-05-15] MEDS ORDERED: VANCOMYCIN 1000 MG/VIAL ONE (03:00)
[2020-05-15 05:29] LABS: BASOPHILS # (AUTO) 0.1 10^3/uL (0.0-0.1); BASOPHILS % (AUTO) 1 % (0-10); EOSINOPHILS # (AUTO) 0.4 10^3/uL (0.0-0.3); EOSINOPHILS % (AUTO) 5 % (0-10); HEMATOCRIT 40 % (35-52); HEMOGLOBIN 13.4 G/DL (11.5-16.0); LYMPHOCYTES # (AUTO) 1.6 X 10^3 (1.0-4.0); LYMPHOCYTES % (AUTO) 22 % (12-44); MEAN CORPUSCULAR HEMOGLOBIN 31 PG (25-34); MEAN CORPUSCULAR HGB CONC 34 G/DL (32-36); MEAN CORPUSCULAR VOLUME 91 FL (80-99); MEAN PLATELET VOLUME 11.5 FL (7.4-10.4); MONOCYTES # (AUTO) 0.7 X 10^3 (0.0-1.0); MONOCYTES % (AUTO) 9 % (0-12); NEUTROPHILS # (AUTO) 4.5 X 10^3 (1.8-7.8); NEUTROPHILS % (AUTO) 63 % (42-75); PLATELET COUNT 272 10^3/uL (130-400); RED CELL DISTRIBUTION WIDTH 13.9 % (10.0-14.5); WHITE BLOOD COUNT 7.2 10^3/uL (4.3-11.0)
[2020-05-15 05:52] LABS: ALBUMIN 3.5 GM/DL (3.2-4.5); CHLORIDE 110 MMOL/L (98-107); POTASSIUM 3.3 MMOL/L (3.6-5.0); SODIUM 140 MMOL/L (135-145)
[2020-05-15 05:53] LABS: CALCIUM 8.4 MG/DL (8.5-10.1)
[2020-05-15 05:54] LABS: GLUCOSE 109 MG/DL (70-105); TOTAL PROTEIN 6.2 GM/DL (6.4-8.2)
[2020-05-15 05:56] LABS: BILIRUBIN,TOTAL 0.3 MG/DL (0.1-1.0); CARBON DIOXIDE 19 MMOL/L (21-32)
[2020-05-15 05:58] LABS: ALKALINE PHOSPHATASE 73 U/L (40-136); CREATININE SERUM 0.78 MG/DL (0.60-1.30); GFR ESTIMATED > 60
[2020-05-15 05:59] LABS: BUN/CREATININE RATIO 12
[2020-05-15 06:01] LABS: ALANINE AMINOTRANSFERASE 10 U/L (0-55)
--- NOTE | 2020-05-15 06:08 | Diagnostic Imaging Report ---
CLINICAL HISTORY: Left foot infection. COMPARISON: None. TECHNIQUE: 6 views of the bilateral feet. FINDINGS: There is no acute fracture or dislocation of the bilateral feet. Alignment is anatomic. The imaged joint spaces are preserved. A prominent enthesophyte is seen along the plantar surface of the right calcaneus. There is soft tissue edema in the bilateral feet, left greater than right. No focal fluid collections are identified. IMPRESSION: 1. No acute fracture or dislocation in the bilateral feet. 2. Soft tissue edema present in the bilateral feet, left greater than right. This may represent cellulitis. No loculated fluid collections are identified. Dictated by: Dictated on workstation # [id number]
--- NOTE | 2020-05-15 06:09 | Diagnostic Imaging Report ---
CLINICAL HISTORY: Infection of the left foot. COMPARISON: None. TECHNIQUE: 6 views of the bilateral ankles. FINDINGS: There is no acute fracture or dislocation of the bilateral ankles. Alignment is anatomic. The imaged joint spaces are preserved. No joint effusion is seen in the bilateral ankles. Soft tissue edema is noted in the bilateral feet, left greater than right. IMPRESSION: 1. No acute fracture or dislocation in the bilateral ankles. Dictated by: Dictated on workstation # [id number]
--- NOTE | 2020-05-15 07:30 | NUR ---
CR 0.78; CR CL > 60; WT 136.7 KG; VANCO 2000 MG GIVEN IN ER; CONTINUE WITH VANCO 1250 MG IV Q8H; TROUGH AFTER THIRD DOSE
[2020-05-15] MEDS: POTASSIUM CL 10MEQ/50ML IVPB 50 ML IV SCH (09:37)
[2020-05-15] MEDS: KCL 20 MEQ TAB (K-DUR) PO SCH ×2 (09:41→11:26)
[2020-05-15] MEDS: VANCOMYCIN 1250 MG/NS 250 ML IVPB IV SCH ×4 (11:27→18:29)
[2020-05-15] MEDS ORDERED: cefTRIAXone FOR IV USE 2,000 MG in WATER (STERILE) FOR INJECTION 20 ML IV SCH (11:30)
--- NOTE | 2020-05-15 11:31 | History & Physical-Hospitalist ---
History of Present Illness HPI/Chief Complaint Isadora Collazo is a 25-year-old female with no known past medical history who presented with redness and swelling of her left foot. She reports that a couple weeks ago she went camping and got several mosquito bites on her legs. Over the past few days she has had worsening redness mainly around the bites on her left foot and ankle. She denies any fevers or chills. She denies any nausea or vomiting. She has not had any shortness of breath or cough. She denies any chest pain. She denies any abdominal pain. She was seen in the emergency room the night before as well and was started on Bactrim. Her redness and swelling worsened and that is when she returned to the emergency room last night. Source: patient Exam Limitations: no limitations Date Seen 05/15/20 Time Seen by a Provider: 09:10 Attending Physician Debby Mckoy MD PCP Jaamr Encarnacion MD,([facility]) Referring Physician Date of Admission May 14, 2020 at 22:20 Home Medications & Allergies Home Medications Reviewed patient Home Medication Reconciliation performed by pharmacy medication reconciliations geoscience laboratory technician and/or nursing. Patients Allergies have been reviewed. Allergies Allergies Coded Allergies Antihistamines - Alkylamine (Verified Allergy, Unknown, 05/13/20) Past Lfhansv-Xfihjq-Pangpz Hx Past Med/Social Hx: Reviewed Nursing Past Med/Soc Hx Patient Social History Alcohol Use: Denies Use Recreational Drug Use: No Type Used: Cigarettes Physical Abuse Screen: No Sexual Abuse: No Recent Foreign Travel: No Contact w/other who traveled: No Recent Hopitalizations: No Recent Infectious Disease Expo: No Seasonal Allergies Seasonal Allergies: No Past Medical History Surgeries: Orthopedic : No Family History Reviewed Nursing Family Hx Review of Systems Constitutional: no symptoms reported EENTM: no symptoms reported Respiratory: no symptoms reported Cardiovascular: no symptoms reported Gastrointestinal: no symptoms reported Genitourinary: no symptoms reported Musculoskeletal: no symptoms reported Skin: lesions, rash Psychiatric/Neurological: No Symptoms Reported Physical Exam Physical Exam Vital Signs Vital Signs - First Documented 05/14/20 20:04 Temp 36.7 Pulse 104 Resp 18 B/P (MAP) 128/79 (95) Pulse Ox 97 O2 Delivery Room Air Capillary Refill : Less Than 3 SecondsLess Than 3 Seconds Height, Weight, BMI Height: '" Weight: lbs. oz. kg; 50.82 BMI Method: General Appearance: No Apparent Distress, Obese HEENT: PERRL/EOMI, Pharynx Normal Neck: Normal Inspection, Supple Respiratory: Lungs Clear, Normal Breath Sounds, No Respiratory Distress Cardiovascular: Regular Rate, Rhythm, No Murmur Gastrointestinal: Normal Bowel Sounds, Non Tender, Soft Extremity: Non Tender, Pedal Edema (Left foot), Swelling (Left foot) Neurologic/Psychiatric: Alert, Oriented x3, No Motor/Sensory Deficits, Normal Mood/Affect Skin: Warm/Dry, Erythema (Left foot and surrounding insect bites) Lymphatic: No Adenopathy Results Results/Procedures Labs Laboratory Tests 05/14/20 20:48 05/15/20 05:00 Patient resulted labs reviewed. Imaging: Reviewed Imaging Report Assessment/Plan Admission Diagnosis Cellulitis Admission Status: Observation Assessment and Plan Cellulitis Not septic Erythema and swelling of left foot ESR 79, CRP 8.22 XR showed soft tissue swelling, no bone involvement noted Started Bactrim one day prior to admission Started on vancomycin on arrival Add Rocephin Hypokalemia Monitor and replace as needed Morbid obesity Clinically significant, no acute management needs DVT prophylaxis: Lovenox Diagnosis/Problems Diagnosis/Problems (1) Cellulitis Status: Acute Qualifiers: Site of cellulitis of extremity: lower extremity Laterality: left Clinical Quality Measures DVT/VTE Risk/Contraindication: Risk Factor Score Per Nursin RFS Level Per Nursing on Admit: 1=Low/No VTE PPX DEBBY MCKOY MD May 15, 2020 11:31
[2020-05-15] MEDS ORDERED: ONDANSETRON 4 MG (ZOFRAN) ORAL DISSOLVE TAB PO PRN (11:45)
[2020-05-15] MEDS ORDERED: polyethylene glycoL POWDER 17 GM (MIRALAX) PACK PO PRN (11:45)
[2020-05-15] MEDS ORDERED: BISACODYL 10 MG SUPP (DULCOLAX) PR PRN (11:45)
[2020-05-15] MEDS ORDERED: ACETAMINOPHEN 325 MG TABLET PO PRN (11:45)
[2020-05-15] MEDS ORDERED: MELATONIN 3 MG TABLET PO PRN (11:45)
[2020-05-15] MEDS ORDERED: ANTACID SUSP 30 ML UDC (MYLANTA) PO PRN (11:45)
[2020-05-15] MEDS: SENNOSIDES 8.6 MG (SENOKOT) TAB PO SCH (21:00)
[2020-05-15] MEDS: DOCUSATE SODIUM 100 MG (COLACE) CAP PO SCH (21:00)
[2020-05-16] VITALS: BP 138/82
[2020-05-16] MEDS ORDERED: TROUGH ORDER-PHARMACY XX NR (02:00)
[2020-05-16 02:23] LABS: ALBUMIN 3.2 GM/DL (3.2-4.5); CHLORIDE 112 MMOL/L (98-107); POTASSIUM 4.3 MMOL/L (3.6-5.0); SODIUM 138 MMOL/L (135-145)
[2020-05-16 02:24] LABS: CALCIUM 8.1 MG/DL (8.5-10.1)
[2020-05-16 02:25] LABS: GLUCOSE 103 MG/DL (70-105)
[2020-05-16 02:26] LABS: TOTAL PROTEIN 5.6 GM/DL (6.4-8.2)
[2020-05-16 02:27] LABS: BILIRUBIN,TOTAL 0.2 MG/DL (0.1-1.0); CARBON DIOXIDE 16 MMOL/L (21-32)
[2020-05-16 02:29] LABS: ALKALINE PHOSPHATASE 61 U/L (40-136); CREATININE SERUM 0.66 MG/DL (0.60-1.30); GFR ESTIMATED > 60
[2020-05-16 02:30] LABS: BUN/CREATININE RATIO 11
[2020-05-16 02:32] LABS: ALANINE AMINOTRANSFERASE 8 U/L (0-55)
[2020-05-16 04:00] VITALS: BP 106/68
[2020-05-16] MEDS: VANCOMYCIN 1250 MG/NS 250 ML IVPB IV SCH ×2 (04:10)
[2020-05-16] MEDS: POTASSIUM CL 10MEQ/50ML IVPB 50 ML IV SCH (06:00)
[2020-05-16 07:42] VITALS: BP 111/76
[2020-05-16] MEDS: SENNOSIDES 8.6 MG (SENOKOT) TAB PO SCH (08:08)
[2020-05-16] MEDS: DOCUSATE SODIUM 100 MG (COLACE) CAP PO SCH (08:08)
[2020-05-16] MEDS ORDERED: PHARMACY TO DOSE SQ SCH (09:00)
[2020-05-16] MEDS ORDERED: ENOXAPARIN 60 MG/0.6 ML (LOVENOX) SYR SC SCH (09:00)
[2020-05-16 11:36] VITALS: BP 114/78
[2020-05-16] MEDS ORDERED: CEPH-507 PO (12:01)
[2020-05-16] MEDS ORDERED: DOXY100C2 PO (12:01)
--- NOTE | 2020-05-16 13:03 | Discharge Summary ---
Discharge Summary Hospital Course Was the Problem List Reviewed?: Yes Problems/Dx: (1) Cellulitis Status: Acute Qualifiers: Hospital Course Date of Admission: May 14, 2020 at 22:20 Admission Diagnosis : cellulitis Family Physician/Provider: Jamar Encarnacion MD,([facility]) Date of Discharge: 05/16/20 Discharge Diagnosis: cellulitis Hospital Course: Isadora Collazo is a 25-year-old female who presented with erythema, tenderness, and swelling of her left foot and was admitted with cellulitis. She had gone camping 2 weeks prior and had multiple insect bites which have had a worsening erythema. She was started on Bactrim the day before admission, but her erythema worsened and she returned. She was admitted for IV antibiotics. She received a vancomycin and ceftriaxone and improved rapidly. She was discharged with a course of doxycycline and Keflex. She should follow-up with her primary care physician in about a week. Labs and Pending Lab Test: Laboratory Tests 05/16/20 02:01: Sodium Level 138, Potassium Level 4.3, Chloride Level 112H, Carbon Dioxide Level 16L, Anion Gap 10, Blood Urea Nitrogen 7, Creatinine 0.66, Estimat Glomerular F iltration Rate > 60, BUN/Creatinine Ratio 11, Glucose Level 103, Calcium Level 8.1L, Corrected Calcium 8.7, Total Bilirubin 0.2, Aspartate Amino Transf (AST/SGOT) 11, Alanine Aminotransferase (ALT/SGPT) 8, Alkaline Phosphatase 61, Total Protein 5.6L, Albumin 3.2, Vancomycin Level Trough 16.0 Home Meds Active Keflex (Cephalexin) 500 Mg Capsule 500 Mg PO TID 12 Days Doxycycline Hyclate 100 Mg Capsule 100 Mg PO BID 12 Days Assessment/Pt Instructions take medications as prescribed. You're being prescribed doxycycline and Keflex. Complete her course of antibiotics even if you're feeling better. Follow-up with your primary care physician in about a week. Discharge Planning: <30 minutes discharge planning Discharge Instructions Discharge Diet: No Restrictions Activity as Tolerated: Yes Discharge Physical Examination Vital Signs Vital Signs Date Time Temp Pulse Resp B/P (MAP) Pulse Ox O2 Delivery O2 Flow Rate FiO2 05/16/20 11:36 36.6 70 18 114/78 (90) 98 Room Air General Appearance: No Apparent Distress, Obese Respiratory: Lungs Clear, Normal Breath Sounds, No Respiratory Distress Cardiovascular: Regular Rate, Rhythm, No Murmur Gastrointestinal: Normal Bowel Sounds, Non Tender, Soft Extremity: Other (tenderness around the insect bites, mild pedal edema on the left) Skin: Warm/Dry, Erythema (improving erythema surrounding insect bites and on the left foot, mild tenderness surrounding the bites, mild pedal edema left foot) Neurologic/Psychiatric: Alert, Oriented x3, No Motor/Sensory Deficits, Normal Mood/Affect Allergies: Coded Allergies: Antihistamines - Alkylamine (Verified Allergy, Unknown, 05/13/20) Copy Copies To 1: ALVINO CHO MD Discharge Summary Date of Admission May 14, 2020 at 22:20 Date of Discharge Discharge Date: May 16, 2020 Discharge Time: 13:00 Admission Diagnosis Cellulitis Discharge Diagnosis Cellulitis (1) Cellulitis Status: Acute Qualifiers: Clinical Quality Measures DVT/VTE Risk/Contraindication: Risk Factor Score Per Nursin RFS Level Per Nursing on Admit: 1=Low/No VTE PPX RAKESH MCKOY MD May 16, 2020 13:03
[2020-05-16 14:13] VITALS: BP 114/78
== END 2020-05-16 13:00 | disposition home or self-care (01) ==
LOC: EDUNIT# 19:54 → ER FS 19:55 → 4TH 22:20
PROVIDERS: ADMIT Internal Medicine; ATTEND Internal Medicine
DX: L03.116 Cellulitis of left lower limb (principal); L03.115 Cellulitis of right lower limb; E87.6 Hypokalemia; F17.210 Nicotine dependence, cigarettes, uncomplicated; E66.01 Morbid (severe) obesity due to excess calories; Z68.43 Body mass index [BMI] 50.0-59.9, adult; Z79.899 Other long term (current) drug therapy; Z88.8 Allergy status to other drugs, medicaments and biological substances
CPT/HCPCS: 36415; 73600; 73620; 80053 ×3; 80202; 83605; 84703; 85025 ×2; 85652; 86141; 87040; 90471; 96361; 96365; 96375; 99284; G0378; 90715